=== PATIENT | male | born 1945 | race African-American/Black ===

== ENCOUNTER 2017-03-21 11:00 | Emergency (ER) | payer MEDICARE | END 2017-03-21 12:55 | disposition home or self-care (01) | LOC: ERS 11:00 | DX: H57.12 Ocular pain, left eye (principal); M10.9 Gout, unspecified; E78.5 Hyperlipidemia, unspecified; I10 Essential (primary) hypertension; K21.9 Gastro-esophageal reflux disease without esophagitis; Z87.891 Personal history of nicotine dependence; Z79.899 Other long term (current) drug therapy; Z79.2 Long term (current) use of antibiotics | CPT/HCPCS: 99283 ==

== ENCOUNTER 2017-08-06 10:21 | Inpatient (IN) | payer MEDICARE ==
--- NOTE | 2017-08-06 10:52 | RAD ---
PORTABLE AP CHEST: Date: 08/06/17 HISTORY: Cough, congestion, right flank pain. COMPARISON: 03/11/15. FINDINGS: Cardiac silhouette is magnified by projection. Pulmonary vasculature is within normal limits. The darwin gs are clear. Troy screws overlies the right humeral head. There has been no interval change from t he prior exam. IMPRESSION: Stable chest without evidence of an acute cardiopulmonary process. POS: [facility]
[2017-08-06 11:36] LABS: #Monocytes 0.3 thou/uL (0.11-0.59); #Neutrophils 1.7 thou/uL (1.40-6.50); %Basophils 0.7 % (0.0-1.0); %Eosinophils 0.4 % (0.0-10.0); %Lymphocytes 48.8 % (21.0-51.0); %Monocytes 7.2 % (0.0-10.0); %Neutrophils 42.9 % (42.0-75.0); Hemoglobin 11.6 g/dL (14.0-18.0); Mean Corpuscular HGB CONC 32.1 g/dL (32.0-36.0); Mean Corpuscular Hemoglobin 28.9 pg (27.0-31.0); Mean Corpuscular Volume 90.1 fl (80.0-94.0); Mean Platelet Volume 10.4 fL (7.4-10.4); Platelet Count 146 thou/uL (130-400); RBC Distribution Width 14.8 % (11.5-14.5); Red Blood Cell (RBC) Count 4.01 mill/uL (4.70-6.10)
[2017-08-06 11:55] LABS: ALT (SGPT) 27 U/L (8-55); AST (SGOT) 27 U/L (5-34); Albumin 3.6 g/dL (3.4-4.8); Alkaline Phosphatase 65 U/L (40-150); Anion Gap 13 mmol/L (10-20); BUN (Urea Nitrogen) 57 mg/dL (8.4-25.7); Bilirubin, Total 0.3 mg/dL (0.2-1.2); Calc. Creatinine Clearance 0 mL/min (70-130); Calcium 8.3 mg/dL (7.8-10.44); Carbon Dioxide 25 mmol/L (23-31); Chloride 105 mmol/L (98-107); Estimated GFR-MDRD 14; Globulin 3.3 g/dL (2.4-3.5); Glucose 127 mg/dL (83-110); Potassium 3.8 mmol/L (3.5-5.1); Protein, Total 6.9 g/dL (5.8-8.1); Sodium 139 mmol/L (136-145)
[2017-08-06 14:53] LABS: Bilirubin Negative (Negative); Blood, Urine Moderate (Negative); Clarity CLEAR (Clear); Glucose, Urine (Dipstick) Negative (Negative); Leukocyte Negative (Negative); Nitrite Negative (Negative); Protein, Urine (Dipstick) > or equal to 300 mg/dL (Neg-Trace); Specific Gravity, Urine 1.022 (1.002-1.036); Urobilinogen 0.2 mg/dL (0.2-1.0)
[2017-08-06 14:54] LABS: CKMB 0.9 ng/mL (0-6.6); Troponin I 0.013 ng/mL (< 0.028)
[2017-08-06 14:55] LABS: Bacteria/HPF None Seen HPF (None Seen); Hyaline Casts/LPF 4-6 HYALINE CAST LPF (0-3 Hyaline); Pathc Cast-AUWi Flag 1.08 (0-2.49); Squamous Epithelial 0-3 HPF (0-3); WBC/HPF 0-3 HPF (0-3)
[2017-08-06] MEDS ORDERED: Ondansetron HCl/PF 4 MG/2 ML Vial IVP PRN (15:40)
[2017-08-06] MEDS ORDERED: Acetaminophen 325 MG TAB PO PRN (15:40)
[2017-08-06] MEDS ORDERED: Loperamide HCl 2 MG CAP PO PRN (15:40)
--- NOTE | 2017-08-06 16:43 | HP ---
DATE OF ADMISSION: 08/06/2017 TIME: 03:30 p.m. HISTORY OF PRESENT ILLNESS: This is a 72-year-old black male with a history of paroxysmal atrial fib rillation, hypertension, hyperlipidemia, chronic kidney disease, who presents with a flu-like illness . The patient was doing relatively well until Tuesday, 4 days ago, he began developing congestion and cough. This has become progressively worse. He began developing loose stools. Over the past 2 day s, he has had minimal fluids or solids. He complains of feeling quite weak. [facility] and he was found to be quite dehydrated with a markedly increased creatinine above baseli ne. PAST MEDICAL HISTORY: Chronic kidney disease, stage 4, followed by Dr. Marcano; paroxysmal atrial fibrillation; hyperlipidemia; hypertension; chronic sinusitis; allergies; diverticulosis. PAST SURGICAL HISTORY: Past surgeries include BPH, status post prostate surgery by Dr. Valenzuela; hernia surgery by Dr. Burgess; shoulder surgery; right inguinal hernia robotic surgery; appendectomy; colonos copy by Dr. Vernon in 2015. FAMILY HISTORY: Parents are , does not recall any family history of coronary artery disease, heart disease, diabetes. SOCIAL HISTORY: He is a former smoker; he quit in 05/2016. He used to drink whiskey heavily. 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 He is . He has 4 kids and 12 grandkids. MEDICATIONS: Lipitor 20 daily, amlodipine 5 daily, calcitriol 0.25 daily, atenolol/chlorthalidone 10 0/25 mg daily, Patanol eye drops p.r.n. ALLERGIES: None. REVIEW OF SYSTEMS: As above. PHYSICAL EXAMINATION: VITAL SIGNS: Stable, afebrile. GENERAL: Minimal distress at this time. HEENT: Clear. Mucous membranes moist. NECK: Supple. HEART: Regular rate and rhythm. LUNGS: Clear. ABDOMEN: Soft, nontender. EXTREMITIES: No edema. LABORATORY AND X-RAY FINDINGS: White count 4.0, H and H 11 and 36, platelets 146. Sodium 139, potas sium 3.8, creatinine 5.06, BUN 57, glucose 127, CK 204. Liver function tests normal. Urine specific gravity 1.022 with RBCs. Chest x-ray, no acute disease. ASSESSMENT: 1. Dehydration. 2. Flu syndrome/acute gastroenteritis. 3. Acute kidney injury on chronic kidney disease stage 4. 4. Paroxysmal atrial fibrillation. 5. Hypertension. 6. Hyperlipidemia. 7. Benign prostatic hypertrophy, status post surgery. 8. Tobacco history. PLAN: 1. Admit, on observation. 2. Hydration. 3. CBC and comprehensive in the a.m. 4. Clear liquid diet and advance as tolerated.
[2017-08-06] MEDS ORDERED: FLU VACC TS2017-18 (>65YR) 0.5 ML SYRINGE IM ONE (16:45)
[2017-08-06] MEDS: Sodium Chloride 0.9% 1,000 ML IV SCH (16:49)
[2017-08-06] MEDS: Famotidine/PF 20 mg/2ml Vial SLOW IVP SCH (21:31)
[2017-08-06] MEDS: Atorvastatin Calcium 20 MG TAB PO SCH (21:32)
[2017-08-07] MEDS: Sodium Chloride 0.9% 1,000 ML IV SCH ×2 (03:01→17:54)
[2017-08-07 05:22] LABS: ALT (SGPT) 20 U/L (8-55); AST (SGOT) 21 U/L (5-34); Alkaline Phosphatase 55 U/L (40-150); Anion Gap 11 mmol/L (10-20); BUN (Urea Nitrogen) 48 mg/dL (8.4-25.7); Bilirubin, Total 0.2 mg/dL (0.2-1.2); Calc. Creatinine Clearance 16 mL/min (70-130); Calcium 7.6 mg/dL (7.8-10.44); Carbon Dioxide 20 mmol/L (23-31); Chloride 113 mmol/L (98-107); Estimated GFR-MDRD 17; Globulin 2.9 g/dL (2.4-3.5); Glucose 99 mg/dL (83-110); Potassium 3.6 mmol/L (3.5-5.1); Protein, Total 5.9 g/dL (5.8-8.1); Sodium 140 mmol/L (136-145)
[2017-08-07 05:44] LABS: Band 3 % (5-11); Hemoglobin 10.5 g/dL (14.0-18.0); Lymphocytes 55 % (21-51); MDiff Complete? YES; Mean Corpuscular HGB CONC 32.1 g/dL (32.0-36.0); Mean Corpuscular Volume 90.4 fl (80.0-94.0); Mean Platelet Volume 10.4 fL (7.4-10.4); Metamyelocyte 1 % (0-0); Monocytes 6 % (0-10); Neutrophil 35 % (42-75); PLT Morphology Comment Appears Decreased; Platelet Count 123 thou/uL (130-400); RBC Distribution Width 14.8 % (11.5-14.5); Red Blood Cell (RBC) Count 3.61 mill/uL (4.70-6.10); White Blood Cell (WBC) Count 3.9 thou/uL (4.8-10.8)
[2017-08-07] MEDS ORDERED: Atenolol 50 MG TAB PO SCH (09:00)
[2017-08-07] MEDS: Amlodipine 5 MG TAB PO SCH (09:23)
[2017-08-07] MEDS: Enoxaparin Sodium 40 MG/0.4 ML SYRINGE SC SCH (09:23)
--- NOTE | 2017-08-07 12:43 | PRG ---
DATE OF SERVICE: 08/07/2017 SUBJECTIVE: The patient is feeling much better this morning, complains of low-grade fever last night . No complaints of chest pain or shortness of breath. Bowel is still remains somewhat loose. OBJECTIVE: VITAL SIGNS: Temperature 99.5, pulse 62, respirations 16, blood pressure 151/81. HEART: Regular rate and rhythm. LUNGS: Clear. ABDOMEN: Soft. EXTREMITIES: With no edema. LABORATORY DATA: White count 3.9, hemoglobin and hematocrit 10 and 32. Sodium 140; potassium 3.6; c reatinine 5.06, down to 4.11. ASSESSMENT: 1. Dehydration. 2. Flu syndrome, type B. 3. Acute kidney injury on chronic kidney disease, stage 4. 4. Paroxysmal atrial fibrillation. 5. Hypertension. 6. Hyperlipidemia. 7. Benign prostatic hypertrophy. 8. Tobacco history. PLAN: 1. Continue hydration. 2. Recheck CBC and CMP in the morning with possible discharge. We would like for the kidney functio ns still at least returned to baseline.
[2017-08-07] MEDS: Atorvastatin Calcium 20 MG TAB PO SCH (20:21)
[2017-08-07] MEDS: Famotidine/PF 20 mg/2ml Vial SLOW IVP SCH (20:21)
[2017-08-08] MEDS: Sodium Chloride 0.9% 1,000 ML IV SCH ×2 (05:34→17:37)
--- NOTE | 2017-08-08 08:10 | PRG ---
DATE OF SERVICE: 08/08/2017 SUBJECTIVE: This is a 72-year-old admitted with a flu and dehydration. He is doing well. He is amber erating a regular diet. He still has a cough. OBJECTIVE: VITAL SIGNS: Temperature 99.3, pulse 56, respirations 20, blood pressure 175/77. HEART: Regular rate and rhythm. LUNGS: Clear. ABDOMEN: Soft. LABORATORY DATA: BMP pending. ASSESSMENT: 1. Dehydration. 2. Flu syndrome type B. 3. Acute kidney injury on chronic kidney disease stage 4. 4. Paroxysmal atrial fibrillation. 5. Hypertension. 6. Hyperlipidemia. 7. Benign prostatic hyperplasia. 8. Tobacco history. PLAN: 1. Check BMP. If creatinine is back to baseline, plan to discharge home today. 2. Follow up in the office in one week.
[2017-08-08] MEDS ORDERED: Atenolol 50 MG TAB PO SCH (09:00)
[2017-08-08 09:20] LABS: Anion Gap 11 mmol/L (10-20); BUN (Urea Nitrogen) 43 mg/dL (8.4-25.7); Calc. Creatinine Clearance 17 mL/min (70-130); Calcium 7.8 mg/dL (7.8-10.44); Carbon Dioxide 19 mmol/L (23-31); Chloride 114 mmol/L (98-107); Estimated GFR-MDRD 19; Glucose 83 mg/dL (83-110); Potassium 3.8 mmol/L (3.5-5.1); Sodium 140 mmol/L (136-145)
[2017-08-08] MEDS: Enoxaparin Sodium 40 MG/0.4 ML SYRINGE SC SCH (10:15)
[2017-08-08] MEDS: Amlodipine 5 MG TAB PO SCH (10:15)
[2017-08-08 13:19] VITALS: BMI 23.6
[2017-08-08] MEDS: Atorvastatin Calcium 20 MG TAB PO SCH (20:25)
[2017-08-08] MEDS: hydrALAZINE 25 MG TAB PO PRN (20:25)
[2017-08-08] MEDS ORDERED: Famotidine 20 MG TAB PO SCH (21:00)
[2017-08-09 05:38] LABS: Anion Gap 12 mmol/L (10-20); BUN (Urea Nitrogen) 41 mg/dL (8.4-25.7); Calc. Creatinine Clearance 17 mL/min (70-130); Calcium 7.4 mg/dL (7.8-10.44); Carbon Dioxide 18 mmol/L (23-31); Chloride 115 mmol/L (98-107); Estimated GFR-MDRD 20; Glucose 94 mg/dL (83-110); Potassium 4.1 mmol/L (3.5-5.1); Sodium 141 mmol/L (136-145)
[2017-08-09] MEDS: Sodium Chloride 0.9% 1,000 ML IV SCH (05:46)
[2017-08-09] MEDS: Amlodipine 5 MG TAB PO SCH (09:01)
[2017-08-09] MEDS: Enoxaparin Sodium 40 MG/0.4 ML SYRINGE SC SCH (09:01)
--- NOTE | 2017-08-09 10:17 | DIS ---
DATE OF ADMISSION: 08/06/2017 DATE OF DISCHARGE: 08/09/2017 DISCHARGE DIAGNOSES: 1. Dehydration. 2. Flu syndrome type B. 3. Acute kidney injury on chronic kidney disease stage 4. 4. Paroxysmal atrial fibrillation. 5. Hypertension. 6. Hyperlipidemia. 7. Benign prostatic hypertrophy. 8. Tobacco history. DISCHARGE MEDICATIONS: Amlodipine 5 p.o. at bedtime, Lipitor 20 p.o. at bedtime, atenolol, chlorthal idone 50-25 p.o. q.a.m., brimonidine drops, calcitriol 0.25 mg daily, Xalatan eyedrops, bicarbonate t ab 650 p.o. b.i.d. FOLLOWUP: Follow up with Dr. Yinka Jones in 3 days. Follow up with Dr. Marcano. BRIEF HISTORY: This is a 72-year-old black male with history of paroxysmal atrial fibrillation, hype rtension, hyperlipidemia, chronic kidney disease who presented with a flu-like illness. He was evalu ated in the ER, was noted to be quite dehydrated with an elevated creatinine. The patient developed congestion and cough 4 days prior and became progressively worse. For the 48 hours prior to admissio n, he had minimal intake, was unable to hold down solids or liquids. HOSPITAL COURSE: The patient was hydrated slowly over his hospital stay. His creatinine decreased o n a daily basis. His creatinine upon admission was 5.06. His previous one on 07/04/2017 was 3.4. H is creatinine eventually dropped to 4 to 3.8 to finally 3.7. The patient will be discharged at this time. He is hydrated. Have to be careful with fluid overload. He will follow with Dr. Marcano t his week. He will continue all home medications. Final sodium 141, potassium 4.1, creatinine 3.73, BUN 41. White count 3.9, H&H 10 and 32. Urine gabriela wed 11-20 RBCs with greater than 300 protein.
[2017-08-09] MEDS ORDERED: Furosemide 40 MG/4 ML VIAL SLOW IVP SCH (11:30)
[2017-08-09] MEDS: hydrALAZINE 25 MG TAB PO PRN (13:24)
[2017-08-09 20:03] VITALS: BP 177/83; TEMP 96.2
== END 2017-08-09 15:50 | disposition home or self-care (01) | DRG 194 ==
LOC: ERS 10:21 → ERHOLD 13:47 → 2NO 15:51
PROVIDERS: ADMIT Family Medicine; ATTEND Family Medicine
DX: J10.1 Influenza due to other identified influenza virus with other respiratory manifestations (principal); N18.4 Chronic kidney disease, stage 4 (severe); I48.0 Paroxysmal atrial fibrillation; N17.9 Acute kidney failure, unspecified; E86.0 Dehydration; I10 Essential (primary) hypertension; E78.5 Hyperlipidemia, unspecified; J32.9 Chronic sinusitis, unspecified; I12.9 Hypertensive chronic kidney disease with stage 1 through stage 4 chronic kidney disease, or unspecified chronic kidney disease; K57.90 Diverticulosis of intestine, part unspecified, without perforation or abscess without bleeding; Z87.891 Personal history of nicotine dependence; K21.9 Gastro-esophageal reflux disease without esophagitis; M10.9 Gout, unspecified; Z90.79 Acquired absence of other genital organ(s)
CPT/HCPCS: 36415; 71045; 80048; 80053; 81003; 81015; 82550; 82553; 84484; 85025; 87633; 93005; 96360; 96361; A4216; J1650; J1940; S0028

== ENCOUNTER 2017-11-05 08:25 | Observation (INO) | payer MEDICARE ==
[2017-11-05 08:51] LABS: #Basophils 0.1 thou/uL (0.0-0.2); #Eosinphils 0.2 thou/uL (0.0-0.7); #Lymphocytes 3.4 thou/uL (1.20-3.40); #Monocytes 0.4 thou/uL (0.11-0.59); #Neutrophils 3.1 thou/uL (1.40-6.50); %Basophils 1.3 % (0.0-1.0); %Eosinophils 2.3 % (0.0-10.0); %Lymphocytes 47.7 % (21.0-51.0); %Monocytes 5.6 % (0.0-10.0); %Neutrophils 43.1 % (42.0-75.0); Hemoglobin 9.6 g/dL (14.0-18.0); Mean Corpuscular HGB CONC 32.9 g/dL (32.0-36.0); Mean Corpuscular Hemoglobin 28.9 pg (27.0-31.0); Mean Corpuscular Volume 87.9 fl (80.0-94.0); Mean Platelet Volume 8.1 fL (7.4-10.4); Platelet Count 234 thou/uL (130-400); RBC Distribution Width 15.4 % (11.5-14.5); Red Blood Cell (RBC) Count 3.31 mill/uL (4.70-6.10); White Blood Cell (WBC) Count 7.2 thou/uL (4.8-10.8)
[2017-11-05 09:16] LABS: ALT (SGPT) 27 U/L (8-55); AST (SGOT) 19 U/L (5-34); Albumin 3.5 g/dL (3.4-4.8); Alkaline Phosphatase 83 U/L (40-150); Anion Gap 13 mmol/L (10-20); BUN (Urea Nitrogen) 58 mg/dL (8.4-25.7); Bilirubin, Total 0.3 mg/dL (0.2-1.2); CK (CPK) 274 U/L (30-200); CKMB 2.3 ng/mL (0-6.6); Calc. Creatinine Clearance 0 mL/min (70-130); Calcium 8.3 mg/dL (7.8-10.44); Carbon Dioxide 20 mmol/L (23-31); Chloride 112 mmol/L (98-107); Estimated GFR-MDRD 11; Globulin 3.2 g/dL (2.4-3.5); Glucose 88 mg/dL (83-110); Lipase 34 U/L (8-78); Potassium 4.6 mmol/L (3.5-5.1); Protein, Total 6.7 g/dL (5.8-8.1); Sodium 139 mmol/L (136-145); Troponin I Less than 0.010 ng/mL (< 0.028)
[2017-11-05] MEDS ORDERED: Nitroglycerin 2% Ointment 1 INCH/1 GM Packet ONE (09:28)
--- NOTE | 2017-11-05 10:06 | RAD ---
PORTABLE AP CHEST XRAY: DATE: 11/05/17. HISTORY: Chest pain. COMPARISON: 08/06/17. FINDINGS: The cardiac silhouette is magnified by projection and is stable in size. Pulmonary vasculature is wi thin normal limits. The lungs remain clear. There has been no interval change compared to the prior exam. IMPRESSION: No acute cardiopulmonary process. POS: [facility]
[2017-11-05] MEDS ORDERED: Ondansetron ODT 4 MG TAB SL PRN (11:38)
[2017-11-05] MEDS ORDERED: Ondansetron HCl/PF 4 MG/2 ML Vial IVP PRN (11:38)
[2017-11-05 12:34] LABS: Troponin I Less than 0.010 ng/mL (< 0.028)
[2017-11-05] MEDS ORDERED: hydrALAZINE 20 MG/ML VIAL SLOW IVP PRN (13:00)
[2017-11-05] MEDS ORDERED: Amlodipine 10 MG TAB PO SCH (13:00)
[2017-11-05] MEDS ORDERED: Magnesium 2 GM/NS 0.9% 100 ML 2 GM in Premix Bag 1 BAG IVPB SCH (13:15)
[2017-11-05 13:18] VITALS: BMI 24.1
[2017-11-05] MEDS ORDERED: Prevnar 13-Val Conj/PF 0.5 ML SYRINGE IM ONE (13:30)
[2017-11-05] MEDS ORDERED: Nitroglycerin 2% Ointment 1 INCH/1 GM Packet TOP SCH (15:00)
[2017-11-05 16:27] LABS: Troponin I Less than 0.010 ng/mL (< 0.028)
[2017-11-05] MEDS: Calcium Acetate 667 MG CAP PO SCH (16:47)
[2017-11-05] MEDS ORDERED: cloNIDine 0.1mg/24 Hour PATCH TD SCH (17:00)
[2017-11-05] MEDS ORDERED: traZODone HCl 50 MG TAB PO PRN (17:05)
[2017-11-05] MEDS: Sodium Bicarbonate Tab 325 MG TAB PO SCH (20:28)
[2017-11-05] MEDS ORDERED: Latanoprost 0.005% Ophth Soln 2.5 ml Bottle EA EYE SCH (21:00)
[2017-11-05] MEDS ORDERED: Mirtazapine 15 MG Soltab PO SCH (21:00)
[2017-11-05] MEDS: Timolol 0.5% Ophth Soln 5 ml Bottle EA EYE SCH (21:26)
[2017-11-05] MEDS: Brimonidine Tartrate 0.2% Ophth Soln 5 ml Bottle EA EYE SCH (21:27)
--- NOTE | 2017-11-06 03:13 | HP ---
DATE OF ADMISSION: 11/05/2017 PRIMARY CARE PHYSICIAN: Dr. Yinka Jones. HISTORY OF PRESENT ILLNESS: The patient has had a left sternal border chest pain radiating to back and left shoulder. This coincided with blood pressures with systolics in the emergency department into the 200s. He is not routinely checking his blood pressure on an outpatient basis. He is compliant with his 5 mg of amlodipine. He has follow up with his senior research associate, Dr. Montero, Tuesday. He reports a negative stress test in the last year or normal rather. He is followed by Dr. Marcano in Nephrology, and has a followup ultrasound and post -image clinic visit in the next 1-2 weeks reportedly. Patient's renal function has remained stable, chronic kidney disease 4 for the last 4 months. He has been on the decline over the last 2 years. Patient states with a decrease in blood pressure and nitro paste, his chest pain is resolved. No shortness of breath. MORE FORMAL REVIEW OF SYSTEMS: No fevers or chills, no cough, no congestion, no runny nose or changes in vision. Positive chest pain, no palpitations. No abdomen pain, no changes in stools. Positive insomnia. Positive joint pain. Negative headache. REVIEW OF PAST MEDICAL, FAMILY, SOCIAL, SURGICAL HISTORY: CKD, stage 4; paroxysmal atrial fibrillation; hypertension; hyperlipidemia; diverticulosis; seasonal allergies. Renal artery stenosis prior TURP; hernia surgery; repair of right inguinal appendectomy; up-to-date on colonoscopy; prior tobacco user, quit 2016; history of whisky intake, mixed reports of the patient that he is clean and sober. Alcohol level in the ER is negative. HOME MEDICATIONS: Include Lipitor 20 mg, amlodipine 5 mg, calciferol 0.25 mg, atenolol. Chlorthalidone was discontinued with his decline in renal function and Patanol eye drops. PHYSICAL EXAMINATION: Vital signs on arrival to floor, temperature of 98.0, pulse of 63, respiratory rate 12, oxygen saturation 99% on room air, blood pressure 169/79. LABORATORY WORK: White blood cell count 7.2, hemoglobin of 9.6, platelet count of 234. Troponins x3 less than 0.01, lipase of 34, magnesium 1.5. Sodium of 139, potassium of 4.6, chloride of 112, CO2 of 20, creatinine of 5.96, GFR of 11 estimated, glucose of 88. Chest x-ray without acute cardiopulmonary events. ASSESSMENT AND PLAN: 1. Chest pain, rule out acute myocardial infarction. 2. Paroxysmal atrial fibrillation. 3. Chronic kidney disease, stage 4. 4. Hypertensive urgency. Increase patient's amlodipine to 10 mg, started clonidine patch with nitro paste. We will titrate medications as needed. Once patient's systolics have been decreased below 165 consistently, we will discharge patient with anticipation of followup with Dr. Montero on Tuesday and followup renal ultrasound with Dr. Marcano in the next 1-2 weeks. ROBYD
[2017-11-06 04:04] VITALS: TEMP 98
[2017-11-06 05:55] LABS: #Eosinphils 0.1 thou/uL (0.0-0.7); #Lymphocytes 2.2 thou/uL (1.20-3.40); #Monocytes 0.4 thou/uL (0.11-0.59); #Neutrophils 3.3 thou/uL (1.40-6.50); %Basophils 0.3 % (0.0-1.0); %Eosinophils 1.4 % (0.0-10.0); %Lymphocytes 36.6 % (21.0-51.0); %Monocytes 6.1 % (0.0-10.0); %Neutrophils 55.5 % (42.0-75.0); Hemoglobin 9.1 g/dL (14.0-18.0); Mean Corpuscular HGB CONC 32.5 g/dL (32.0-36.0); Mean Corpuscular Volume 89.2 fl (80.0-94.0); Mean Platelet Volume 8.9 fL (7.4-10.4); Platelet Count 227 thou/uL (130-400); RBC Distribution Width 15.5 % (11.5-14.5); Red Blood Cell (RBC) Count 3.16 mill/uL (4.70-6.10)
[2017-11-06 06:46] LABS: ALT (SGPT) 24 U/L (8-55); AST (SGOT) 18 U/L (5-34); Albumin 3.2 g/dL (3.4-4.8); Alkaline Phosphatase 73 U/L (40-150); Anion Gap 14 mmol/L (10-20); BUN (Urea Nitrogen) 56 mg/dL (8.4-25.7); Bilirubin, Total 0.3 mg/dL (0.2-1.2); Calc. Creatinine Clearance 11 mL/min (70-130); Calcium 8.5 mg/dL (7.8-10.44); Carbon Dioxide 19 mmol/L (23-31); Chloride 113 mmol/L (98-107); Estimated GFR-MDRD 12; Globulin 2.9 g/dL (2.4-3.5); Glucose 82 mg/dL (83-110); Protein, Total 6.1 g/dL (5.8-8.1); Sodium 141 mmol/L (136-145)
[2017-11-06 08:01] VITALS: BP 152/76
[2017-11-06] MEDS: Sodium Bicarbonate Tab 325 MG TAB PO SCH (08:25)
[2017-11-06] MEDS: Calcium Acetate 667 MG CAP PO SCH (08:25)
[2017-11-06] MEDS: Brimonidine Tartrate 0.2% Ophth Soln 5 ml Bottle EA EYE SCH (08:26)
[2017-11-06] MEDS: Timolol 0.5% Ophth Soln 5 ml Bottle EA EYE SCH (08:34)
[2017-11-06] MEDS ORDERED: Amlodipine 10 MG TAB PO SCH (09:00)
[2017-11-06] MEDS ORDERED: Aspirin 81 mg Enteric Coated Tablet PO SCH (09:00)
[2017-11-06] MEDS ORDERED: Enoxaparin Sodium 30 MG/0.3 ML SYRINGE SC SCH (09:00)
[2017-11-06] MEDS ORDERED: Calcitriol 0.25 MCG CAP PO SCH (09:00)
--- NOTE | 2017-11-06 11:27 | DIS ---
DATE OF ADMISSION: 11/05/2017 DATE OF DISCHARGE: 11/06/2017 PRIMARY CARE PHYSICIAN: Dr. Yinka Jones. CHIEF COMPLAINT: Chest pain, radiation from front to back. PRESENTING HISTORY OF PRESENT ILLNESS: Patient found to have systolics in the 190s to 200s. The pat lina's systolics were brought down with nitro paste and his chest pain improved with nitro paste. Tr oponins x3 were titrated overnight. No EKG changes were found. EKG showed patient in sinus arrhythm ia, but no ST changes. He has a history of paroxysmal atrial fibrillation, but no runs of atrial fib rillation found on telemetry overnight. The patient with a history of renal artery stenosis with [facility] onic kidney disease, stage 4, followed by Dr. Marcano. He is followed from a cardiac standpoint b y Dr. Montero and has an appointment with Dr. Montero tomorrow on Tuesday and has a repeat renal artery ultrasound with Dr. Marcano pending next week. The patient did well with improved blood pressure and resolution of chest pain following clonidine patch administration. All of his diuretics were rem sabi secondary to his renal function decline and the patient remains with some element of bradycardia , which is why he is no longer on a beta esteban. No consultations were performed. Follow up with Kevin Montero on Tuesday with Dr. Marcano in next 2 weeks. Follow up with Dr. Yinka Jones in next we k. MEDICATIONS ON DISCHARGE: Include amlodipine 10 mg daily; 81 mg aspirin; timolol eye drops; cholecal ciferol; PhosLo; clonidine patch 0.1 mg, new prescription; sodium bicarbonate 650 mg. DISCHARGE DIET: Renal/cardiac. DISCHARGE ACTIVITY: As tolerated. DISCHARGE CONDITION: Good.
[2017-11-12] MEDS ORDERED: cloNIDine 0.1mg/24 Hour PATCH TD SCH (09:00)
--- NOTE | 2017-11-12 15:06 | EKG ---
Test Reason : Blood Pressure : / mmHG Vent. Rate : 066 BPM Atrial Rate : 066 BPM P-R Int : 196 ms QRS Dur : 090 ms QT Int : 378 ms P-R-T Axes : 052 -09 049 degrees QTc Int : 396 ms Sinus rhythm with Premature atrial complexes Otherwise normal ECG Confirmed by JANETT GANT, RAMOS ([id number]), scientific editor ALIS CABALLERO ([id number]) on 11/12/2017 3:06:12 PM Referred By: Confirmed By:RAMOS ROWLAND MD
== END 2017-11-06 09:40 | disposition home or self-care (01) ==
LOC: ERS 08:25 → 2SW 11:09
PROVIDERS: ADMIT Family Medicine; ATTEND Family Medicine
DX: R07.9 Chest pain, unspecified (principal); N18.4 Chronic kidney disease, stage 4 (severe); I48.0 Paroxysmal atrial fibrillation; E78.5 Hyperlipidemia, unspecified; I10 Essential (primary) hypertension; K57.30 Diverticulosis of large intestine without perforation or abscess without bleeding; Z90.49 Acquired absence of other specified parts of digestive tract; Z79.82 Long term (current) use of aspirin; Z79.899 Other long term (current) drug therapy; Z98.890 Other specified postprocedural states
CPT/HCPCS: 71045; 80053 ×2; 80307; 82550; 82553; 83690; 83735; 83880; 84484 ×2; 85025 ×2; 90670; 93005; 96365; 96366; 99285; G0009; G0378; 36415; 90471; J3475

== ENCOUNTER 2017-12-02 11:30 | Outpatient (CLI) | payer MEDICARE | END 2017-12-02 11:31 | disposition home or self-care (01) | LOC: BICULT 11:30 | PROVIDERS: ATTEND Internal Medicine Nephrology | DX: N18.5 Chronic kidney disease, stage 5 (principal); R93.429 Abnormal radiologic findings on diagnostic imaging of unspecified kidney | CPT/HCPCS: 76770; G0365; 93970 ==

== ENCOUNTER 2018-09-29 09:12 | Day surgery (SDC) | payer MEDICARE ==
[2018-09-29 09:44] VITALS: BMI 23.6
[2018-09-29] MEDS ORDERED: diphenhydrAMINE 25 MG CAP PO SCH (09:45)
[2018-09-29] MEDS ORDERED: Acetaminophen 500 MG TAB PO SCH (09:45)
[2018-09-29 18:29] LABS: #Basophils 0.1 thou/uL (0.0-0.2); #Eosinphils 0.2 thou/uL (0.0-0.7); #Lymphocytes 3.3 thou/uL (1.20-3.40); #Monocytes 0.4 thou/uL (0.11-0.59); %Basophils 1.5 % (0.0-1.0); %Eosinophils 2.1 % (0.0-10.0); %Lymphocytes 41.6 % (21.0-51.0); %Neutrophils 49.8 % (42.0-75.0); Hemoglobin 8.6 g/dL (14.0-18.0); Mean Corpuscular HGB CONC 31.1 g/dL (32.0-36.0); Mean Corpuscular Hemoglobin 28.1 pg (27.0-31.0); Mean Corpuscular Volume 90.5 fL (78.0-98.0); Mean Platelet Volume 8.1 fL (7.4-10.4); Platelet Count 229 thou/uL (130-400); RBC Distribution Width 16.5 % (11.5-14.5); Red Blood Cell (RBC) Count 3.06 mill/uL (4.70-6.10)
[2018-09-29 18:41] VITALS: BP 174/83; TEMP 97.5
== END 2018-09-29 19:12 | disposition home or self-care (01) ==
LOC: ONC/OP 09:12 → ONC 09:13 → ONC/OP 19:12
PROVIDERS: ATTEND Internal Medicine Hematology & Oncology
PROC: 30233H1 Transfusion of Nonautologous Whole Blood into Peripheral Vein, Percutaneous Approach (ICD-10-PCS; principal; 2018-09-29)
DX: D64.9 Anemia, unspecified (principal); D69.6 Thrombocytopenia, unspecified; Z79.899 Other long term (current) drug therapy; Z79.82 Long term (current) use of aspirin
CPT/HCPCS: 36415; 36430; 85025; 86850; 86900; 86901; P9016; Q0163

== ENCOUNTER 2018-10-03 08:59 | Outpatient (CLI) | payer MEDICARE ==
--- NOTE | 2018-10-03 10:40 | CT ---
CT Pulmonary Lung Scan History: [Personal history of nicotine dependence] Comparison: Radiograph 2018 Findings: Lung screening specific: No suspicious pulmonary nodules. Lung RADS category S: No incidental findings of the chest requiring urgent evaluation. Pulmonary incidentals: There is mild centrilobular emphysema in the lung apices. No pneumothorax. No effusion. 2 to 3 mm micronodule right middle lobe axial image 145. Calcified granuloma left lower lob e. Other incidentals: There is diffuse hepatic skeletal hyperostosis of the thoracic spine. Limited eval uation of the upper abdomen demonstrates multiple calcified apple hepatis lymph nodes. No acute displ aced rib fracture. Impression: 1. Lung RADS category 2: Benign appearance or behavior. Recommend screening CT in one year. 2. Lung RADS category S: Negative. No new or suspicious incidental findings requiring additional eval uation. 3. Evidence of prior granulomatous disease.
== END 2018-10-03 09:00 | disposition home or self-care (01) ==
LOC: CT 08:59
PROVIDERS: ATTEND Internal Medicine Hematology & Oncology
DX: F17.211 Nicotine dependence, cigarettes, in remission (principal)
CPT/HCPCS: G0297

== ENCOUNTER 2018-10-25 23:35 | Emergency (ER) | payer MEDICARE ==
[2018-10-26 00:04] LABS: Bilirubin Negative (Negative); Blood, Urine Large (Negative); Clarity CLEAR (Clear); Glucose, Urine (Dipstick) Negative (Negative); Leukocyte Negative (Negative); Nitrite Negative (Negative); Protein, Urine (Dipstick) 300 mg/dL (Neg-Trace); Specific Gravity, Urine 1.008 (1.002-1.036); Urobilinogen 0.2 mg/dL (0.2-1.0); pH, Urine 5.5 (5.0-9.0)
[2018-10-26 00:05] LABS: Bacteria/HPF None Seen HPF (None Seen); Hyaline Casts/LPF 0-3 HYALINE CAST LPF (0-3 Hyaline); Pathc Cast-AUWi Flag 0.54 (0-2.49); RBC/HPF GREATER THAN 50-TNTC HPF (0-3); Squamous Epithelial None Seen HPF (0-3)
[2018-10-26 00:32] LABS: #Eosinphils 0.2 thou/uL (0.0-0.7); #Lymphocytes 2.7 thou/uL (1.20-3.40); #Monocytes 0.5 thou/uL (0.11-0.59); #Neutrophils 3.8 thou/uL (1.40-6.50); %Basophils 0.6 % (0.0-1.0); %Eosinophils 2.2 % (0.0-10.0); %Lymphocytes 37.3 % (21.0-51.0); %Monocytes 7.4 % (0.0-10.0); %Neutrophils 52.5 % (42.0-75.0); Hemoglobin 8.7 g/dL (14.0-18.0); Mean Corpuscular HGB CONC 31.9 g/dL (32.0-36.0); Mean Corpuscular Hemoglobin 28.5 pg (27.0-31.0); Mean Corpuscular Volume 89.1 fL (78.0-98.0); Mean Platelet Volume 8.7 fL (7.4-10.4); Platelet Count 233 thou/uL (130-400); RBC Distribution Width 18.3 % (11.5-14.5); Red Blood Cell (RBC) Count 3.06 mill/uL (4.70-6.10); White Blood Cell (WBC) Count 7.2 thou/uL (4.8-10.8)
[2018-10-26 00:56] LABS: ALT (SGPT) 11 U/L (8-55); AST (SGOT) 8 U/L (5-34); Albumin 3.7 g/dL (3.4-4.8); Alkaline Phosphatase 80 U/L (40-150); Anion Gap 18 mmol/L (10-20); BUN (Urea Nitrogen) 83 mg/dL (8.4-25.7); Bilirubin, Total 0.4 mg/dL (0.2-1.2); Calc. Creatinine Clearance 0 mL/min (70-130); Calcium 7.9 mg/dL (7.8-10.44); Carbon Dioxide 14 mmol/L (23-31); Chloride 112 mmol/L (98-107); Estimated GFR-MDRD 6; Globulin 3.2 g/dL (2.4-3.5); Glucose 76 mg/dL (83-110); Lipase 37 U/L (8-78); Potassium 4.6 mmol/L (3.5-5.1); Protein, Total 6.9 g/dL (5.8-8.1); Sodium 139 mmol/L (136-145)
== END 2018-10-26 01:17 | disposition home or self-care (01) ==
LOC: ERS 23:35
DX: I12.0 Hypertensive chronic kidney disease with stage 5 chronic kidney disease or end stage renal disease (principal); N18.9 Chronic kidney disease, unspecified; K21.9 Gastro-esophageal reflux disease without esophagitis; E78.5 Hyperlipidemia, unspecified; M10.9 Gout, unspecified; Z87.891 Personal history of nicotine dependence
CPT/HCPCS: 36415; 80053; 81003; 81015; 83690; 85025; 99283

== ENCOUNTER 2018-10-30 07:52 | Outpatient (CLI) | payer MEDICARE ==
--- NOTE | 2018-10-30 08:54 | ULT ---
Exam: Vein mapping for dialysis access HISTORY: Chronic kidney disease TECHNIQUE: Multiplanar grayscale and color Doppler images were obtained in a bilateral upper extremit y venous ultrasound. Spectral analysis of the Doppler waveforms of the vessels were performed. FINDINGS: The bilateral internal jugular veins and subclavian veins are patent without evidence of th rombus. Right brachial artery 4.7 mm Right radial artery 2.3 mm Right ulnar artery 1.3 mm Left brachial artery 3.4 and 3.8 mm. The left brachial artery is duplicated. Left radial artery 2.0 mm Left ulnar artery 1.1 mm RIGHT CEPHALIC VEIN in millimeters 0.5 -- Shoulder 0.9 -- Upper arm 0.5 -- Mid upper arm 0.7-- Just proximal to the elbow 0.9 -- Just distal to the elbow 0.7 -- Forearm 0.7 -- Wrist RIGHT BASILIC VEIN in millimeters 1.8 -- Shoulder 1.1 -- Upper arm 2.4 -- Mid upper arm 2.2 -- Just proximal to the elbow 0.8 -- Just distal to the elbow 0.9 -- Forearm 0.5 -- Wrist LEFT CEPHALIC VEIN in millimeters 1.6 -- Shoulder 1.0 -- Upper arm 1.5 -- Mid upper arm 2.1 -- Just proximal to the elbow 0.6 -- Just distal to the elbow 1.0 -- Forearm 0.9 -- Wrist LEFT BASILIC VEIN in millimeters 4.5 -- Shoulder 1.9 -- Upper arm 1.3 -- Mid upper arm 1.7 -- Just proximal to the elbow 0.4 -- Just distal to the elbow 0.3 -- Forearm 0.5 -- Wrist IMPRESSION: Vein mapping for dialysis access as above
== END 2018-10-30 07:53 | disposition home or self-care (01) ==
LOC: ULT 07:52
PROVIDERS: ATTEND Internal Medicine Nephrology
DX: Z01.818 Encounter for other preprocedural examination (principal); N18.5 Chronic kidney disease, stage 5
CPT/HCPCS: 93970; G0365

== ENCOUNTER 2018-11-16 20:55 | Emergency (ER) | payer MEDICARE ==
[2018-11-16] MEDS ORDERED: HYDROcodone/Acetaminophen 10/325 mg Tablet ONE (22:03)
== END 2018-11-16 23:12 | disposition home or self-care (01) ==
LOC: ERS 20:55
DX: G89.18 Other acute postprocedural pain (principal); I12.0 Hypertensive chronic kidney disease with stage 5 chronic kidney disease or end stage renal disease; N18.6 End stage renal disease; K21.9 Gastro-esophageal reflux disease without esophagitis; E78.5 Hyperlipidemia, unspecified; M10.9 Gout, unspecified; Z87.891 Personal history of nicotine dependence
CPT/HCPCS: 99283

== ENCOUNTER 2018-12-12 09:59 | Inpatient (IN) | payer MEDICARE ==
[2018-12-12 11:20] LABS: Hemoglobin 8.3 g/dL (14.0-18.0); Mean Corpuscular HGB CONC 30.4 g/dL (32.0-36.0); Mean Corpuscular Hemoglobin 28.1 pg (27.0-31.0); Mean Corpuscular Volume 92.4 fL (78.0-98.0); Mean Platelet Volume 7.9 fL (7.4-10.4); Platelet Count 271 thou/uL (130-400); Red Blood Cell (RBC) Count 2.96 mill/uL (4.70-6.10); White Blood Cell (WBC) Count 5.3 thou/uL (4.8-10.8)
[2018-12-12 11:21] LABS: #Eosinphils 0.3 thou/uL (0.0-0.7); #Lymphocytes 1.5 thou/uL (1.20-3.40); #Monocytes 0.3 thou/uL (0.11-0.59); #Neutrophils 3.2 thou/uL (1.40-6.50); %Basophils 0.4 % (0.0-1.0); %Lymphocytes 27.5 % (21.0-51.0); %Monocytes 6.2 % (0.0-10.0); %Neutrophils 60.9 % (42.0-75.0)
[2018-12-12 11:42] LABS: ALT (SGPT) 18 U/L (8-55); AST (SGOT) 10 U/L (5-34); Albumin 3.2 g/dL (3.4-4.8); Alkaline Phosphatase 62 U/L (40-150); Anion Gap 11 mmol/L (10-20); BUN (Urea Nitrogen) 87 mg/dL (8.4-25.7); Bilirubin, Total 0.3 mg/dL (0.2-1.2); CK (CPK) 85 U/L (30-200); Calc. Creatinine Clearance 0 mL/min (70-130); Calcium 8.7 mg/dL (7.8-10.44); Carbon Dioxide 21 mmol/L (23-31); Chloride 111 mmol/L (98-107); Estimated GFR-MDRD 5; Globulin 3.2 g/dL (2.4-3.5); Glucose 101 mg/dL (83-110); Lipase 58 U/L (8-78); Protein, Total 6.4 g/dL (5.8-8.1); Sodium 138 mmol/L (136-145)
--- NOTE | 2018-12-12 11:45 | RAD ---
XR Chest 1 View Portable HISTORY: Dyspnea COMPARISON: 11/05/2017 FINDINGS: The heart size is normal. The lungs are well expanded without focal areas of consolidation, pneumothorax or pleural effusions. There are degenerative changes in the spine and shoulder joints. A small calcified granuloma seen in the left lower lung. IMPRESSION: No radiographic evidence of acute cardiopulmonary process.
[2018-12-12 11:50] LABS: Hypochromia SLIGHT = 6-15 cells (100X) (0-5/hpf); MDiff Complete? YES; Polychromasia SLIGHT = 2-3 cells (100X) (0-2/hpf)
[2018-12-12] MEDS ORDERED: Ondansetron ODT 4 MG TAB SL PRN (14:54)
[2018-12-12] MEDS ORDERED: Ondansetron PF 4 MG/2 ML Vial IVP PRN (14:54)
[2018-12-12] MEDS ORDERED: Tuberculin PPD 0.1 ML VIAL I-DERMAL SCH ×2 (15:30→17:00)
[2018-12-12] MEDS ORDERED: EPOETIN ALFA-EPBX (ESRD) 4,000 UNIT/ML VIAL SC SCH (15:30)
[2018-12-12] MEDS ORDERED: cloNIDine 0.1 MG TAB PO SCH (16:15)
[2018-12-12 16:16] LABS: HBSAB Concentration 1.69 mIU/mL; HBSAg Index 0.33 S/CO (0-0.99); Hep B Core Total Ab Non-Reactive (NonReactive); Hep B Core Total Index 0.05 S/CO (0-0.79); Hep B Surf AB Non-Reactive (NonReactive); Hep B Surf Ag Non-Reactive S/CO (NonReactive); Hep C IgG Ab Non-Reactive (NonReactive); Hep C Index 0.13 S/CO (0-0.79)
[2018-12-12] MEDS: Calcium Acetate 667 MG CAP PO SCH (18:08)
[2018-12-12] MEDS: Ferrous Sulfate 325 MG TAB PO SCH (18:08)
--- NOTE | 2018-12-12 21:05 | CON ---
DATE OF CONSULTATION: HISTORY OF PRESENT ILLNESS: Mr. Olivera is a 73-year-old black male, was admitted due to uremic signs and symptoms. The patient has history of chronic renal failure from his hypertensive nephropathy. Several weeks ago, an AV fistula was placed by Dr. Mir. He has declined to initiate dialysis. I also declined to have a cuffed hemodialysis catheter placed and would like to wait for his AV fistula to mature. Due to the progressive azotemia and worsening renal function, the patient was admitted for initiation of dialysis. We were able to use his left AV fistula. However, there was an infiltrate which currently is being treated symptomatically. He has adequate blood flow at the present time. REVIEW OF SYSTEMS: Positive for nausea, but no vomiting, decreased appetite, decreased energy level. No headache. No diplopia. No productive cough. No fever or chills. No hematochezia. No melena. No hematemesis. No abdominal pain. No syncopal episode. No fever or chills. HOME MEDICATIONS: Included; 1. Calcitriol 0.25 mcg daily. 2. Amlodipine 5 mg twice a day. 3. Atorvastatin 40 mg tablet at bedtime. 4. Tums 500 mg one tablet t.i.d. with meals. 5. Combigan eye drops as directed. 6. Latanoprost ophthalmic eye drops as directed. PAST MEDICAL HISTORY: 1. Chronic renal failure from hypertensive nephropathy. 2. Prostate cancer-in remission. 3. Longstanding hypertension. 4. Hyperlipidemia. 5. DJD. 6. Status post paroxysmal atrial fibrillation. 7. Peripheral vascular disease. PAST SURGICAL HISTORY: Status post AV fistula placement, status post prostate biopsy, status post prostatectomy, status post laparoscopic hernia repair, status post rotator cuff surgery, status post laparoscopic appendectomy. SOCIAL HISTORY: The patient is . He has a live-in girlfriend. He lives in [place]. Four children. Used to smoke 1/2 pack per day for 20 years. Alcohol, none. 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 Education, 12th grade. FAMILY HISTORY: Positive family history of ESRD, one cousin on dialysis. ALLERGIES: NONE. TRAUMA: None. IMMUNIZATION: Up-to-date. HOSPITALIZATIONS: Please see past medical history. PHYSICAL EXAMINATION: VITAL SIGNS: Blood pressure is noted at 129/62, heart rate 56, respiratory rate 16, temperature 98.1, and O2 saturation 100% on room air. GENERAL: Noted to be awake, alert, comfortable, not in overt distress. SKIN: Adequate turgor. HEENT: Pinkish, slightly pale conjunctivae. Anicteric sclerae. No neck mass. No carotid bruits. No JVD. CHEST: No deformities. LUNGS: Clear breath sounds. No wheezing. No crackles. HEART: Normal sinus rhythm. No murmur, no gallops, no rubs. ABDOMEN: Globular, soft, nontender. No masses. EXTREMITIES: No edema. No deformities. LABORATORY DATA: Laboratories of December 12, 2018, white count 5.2, hemoglobin 8.2, hematocrit 27.4. Sodium 138, potassium 5, chloride 111, carbon dioxide 21, BUN 87, creatinine 11.49. AST 10, ALT 18, albumin 3.2. Chest x-ray, no CHF, no infiltrates. ASSESSMENT AND PLAN: 1. End-stage renal disease, chronic renal failure from hypertensive nephropathy, hemodialysis may be initiated. The plan is to do a 2-hour hemodialysis today. Due to an infiltration of the AV fistula, I will not do dialysis tomorrow. We will hold off dialysis until 2 days from today. Fluid removal only as tolerated by the patient. The patient has declined to have a cuffed dialysis catheter placed. 2. Anemia. Start Epogen and iron supplementation. 3. Secondary hyperparathyroidism. Continue calcitriol. 4. Hyperphosphatemia. The patient has been started on a phosphate binder, PhosLo 667 mg 2 tablets t.i.d. with meals. 5. Consult Case Management for outpatient dialysis. Job ID: [id number]
[2018-12-12] MEDS: cloNIDine 0.1 MG TAB PO SCH (21:17)
--- NOTE | 2018-12-13 02:37 | HP ---
PRIMARY CARE PHYSICIAN: Dr. Yinka Jones. CHIEF COMPLAINT: Weakness. HISTORY OF PRESENT ILLNESS: This is a 73-year-old gentleman with a history of end-stage kidney disease, followed by Dr. Hernandes, hypertension, hyperlipidemia, history of paroxysmal atrial fibrillation, who was sent to the hospital for admission by Dr. Hernandes for increasing uremia on his labs. The patient states that he has had some increased fatigue, but denies confusion. Denies chest pain or shortness of breath. He was admitted, underwent dialysis today, and states that he is feeling some better after his dialysis. The patient had AV fistula placed by Dr. Mir on December 10, but did not want to start dialysis at that time, but due to his worsening labs, Dr. Hernandes felt like it was time to initiate dialysis. He is doing well at this point. Denies nausea or vomiting. He states that his appetite is good, now being admitted for further evaluation and continued initiation of dialysis until his outpatient dialysis is arranged. PAST MEDICAL HISTORY: Chronic renal failure from hypertensive nephropathy, remote history of prostate cancer, was following by Dr. Valenzuela in the past, hypertension, hyperlipidemia, history of paroxysmal atrial fibrillation, remote history of alcohol abuse, peripheral vascular disease, degenerative joint disease, anemia of chronic disease. MEDICATIONS: Include: 1. Calcitriol 0.25 mcg daily. 2. Amlodipine 10 mg daily. 3. Atorvastatin 40 mg at bedtime. 4. Tums 500 mg t.i.d. 5. Combigan eye drops. 6. Latanoprost eye drops. ALLERGIES: NO KNOWN DRUG ALLERGIES. PAST SURGICAL HISTORY: History of prostatectomy by Dr. Valenzuela, history of right inguinal hernia repair by Dr. Burgess, history of shoulder surgery, colonoscopy last in 2015, laparoscopic appendectomy in 2014, resection of bladder tumor by Dr. Freedman in October of 2018, left AV fistula placement in October of 2018. FAMILY HISTORY: Positive for renal disease with one cousin on dialysis. Father and mother, both at this point. REVIEW OF SYSTEMS: As per the history of present illness. CONSTITUTIONAL: He denies any recent fevers, chills, or recent illness. HEENT: Denies headache, visual or hearing changes. CARDIAC: Denies chest pain, shortness of breath, or palpitations. PULMONARY: Denies cough or hemoptysis. GI: Denies nausea, vomiting, abdominal pain, or diarrhea. : Denies dysuria or hematuria. NEUROLOGIC: Some weakness. No seizures or syncope. MUSCULOSKELETAL: History of degenerative joint disease with occasional joint pains. PHYSICAL EXAMINATION: VITAL SIGNS: Temperature 97.5, pulse of 56, respirations 18, blood pressure 154/79, and pulse ox is 98% on room air. GENERAL: He is awake and alert. No acute distress. Speech is clear. NECK: Supple. HEART: Regular rate and rhythm. LUNGS: Clear bilaterally. ABDOMEN: Soft, nontender, and nondistended. No hepatosplenomegaly. EXTREMITIES: No clubbing, cyanosis, or edema. Dressing on left forearm. No edema bilaterally. LABORATORY DATA: Hepatitis panel was nonreactive. White blood cell count 5,300, hemoglobin and hematocrit 8.3 and 27.4, with normocytic indices, platelets of 271. Sodium 138, potassium 5.0, chloride 111, CO2 of 21, BUN and creatinine 87 and 11.49, with a GFR of 5, albumin of 3.2. AST and ALT are normal. Chest x-ray showed no active disease. ASSESSMENT AND PLAN: 1. This is a 73-year-old gentleman with a long history of renal disease, now with end-stage renal disease with worsening uremia. The patient has tolerated initiation of hemodialysis. We will continue plan per Nephrology. 2. Chronic anemia, anemia of chronic disease, and anemia of end-stage renal disease. We will continue iron supplementation. Dr. Hernandes to start Epogen. 3. Secondary hyperparathyroidism. Continue calcitriol. 4. Hypertension, appears to be stable on his current medications. Dr. Hernandes started clonidine p.r.n. Job ID: [id number]
[2018-12-13 04:41] LABS: #Basophils 0.1 thou/uL (0.0-0.2); #Eosinphils 0.3 thou/uL (0.0-0.7); #Lymphocytes 1.9 thou/uL (1.20-3.40); #Monocytes 0.3 thou/uL (0.11-0.59); #Neutrophils 2.4 thou/uL (1.40-6.50); %Basophils 1.4 % (0.0-1.0); %Eosinophils 6.2 % (0.0-10.0); %Lymphocytes 38.5 % (21.0-51.0); %Monocytes 6.8 % (0.0-10.0); %Neutrophils 47.1 % (42.0-75.0); Hemoglobin 8.7 g/dL (14.0-18.0); Mean Corpuscular HGB CONC 31.3 g/dL (32.0-36.0); Mean Corpuscular Hemoglobin 28.4 pg (27.0-31.0); Mean Corpuscular Volume 90.7 fL (78.0-98.0); Mean Platelet Volume 8.4 fL (7.4-10.4); Platelet Count 262 thou/uL (130-400); RBC Distribution Width 18.9 % (11.5-14.5); Red Blood Cell (RBC) Count 3.06 mill/uL (4.70-6.10)
[2018-12-13 04:57] LABS: Anion Gap 14 mmol/L (10-20); BUN (Urea Nitrogen) 58 mg/dL (8.4-25.7); Calc. Creatinine Clearance 7 mL/min (70-130); Calcium 8.5 mg/dL (7.8-10.44); Carbon Dioxide 26 mmol/L (23-31); Chloride 104 mmol/L (98-107); Estimated GFR-MDRD 8; Glucose 79 mg/dL (83-110); Potassium 4.8 mmol/L (3.5-5.1); Sodium 139 mmol/L (136-145)
[2018-12-13] MEDS ORDERED: Losartan 25 MG TAB PO SCH (09:00)
--- NOTE | 2018-12-13 09:43 | PRG ---
DATE OF SERVICE: 12/13/2018 SERVICE: Renal Medicine. SUBJECTIVE: Mr. Olivera is a 73-year-old black male with known history of chronic renal failure, was initially on dialysis due to uremia. A 2-hour hemodialysis was done. There was some infiltration on the left upper extremity AV fistula. We are resting the arm at the present time. I examined the AV fistula and there was a good bruit. No other complaints. No chest pain or shortness of breath. The patient also denies any nausea or vomiting. OBJECTIVE: VITAL SIGNS: Blood pressure 121/69, heart rate 63, respiratory rate 18, temperature 98.1, and pulse ox 98%. GENERAL: Awake, alert, comfortable, not in overt distress. SKIN: Adequate turgor. HEENT: He has slightly pale conjunctivae. Anicteric sclerae. NECK: No neck mass. No carotid bruits. No JVD. CHEST: No deformities. LUNGS: Clear breath sounds. No wheezing. No crackles. HEART: Normal sinus rhythm. No murmurs. No gallops. No rubs. ABDOMEN: Globular, soft, and nontender. No masses. EXTREMITIES: No edema. No deformities. Positive for left upper extremity AV fistula. Positive for bruit. MEDICATIONS: Medications of December 13, 2018, reviewed. LABORATORY DATA: Laboratories of December 13, 2018: Sodium 139, potassium 4.8, chloride 104, carbon dioxide 26, BUN 58, creatinine 8.47, glucose 79, and calcium 8.5. ASSESSMENT AND PLAN: 1. End-stage renal disease/chronic renal failure, stable, tolerated a 2-hour hemodialysis yesterday. My plan to schedule him tomorrow for 3-hour hemodialysis with fluid removal only as tolerated. 2. Anemia. Epogen and ferrous sulfate have been initiated. 3. Secondary hyperparathyroidism/hyperphosphatemia, started on PhosLo and calcitriol. 4. Awaiting outpatient dialysis placement. 5. Hypertension. The patient has been started on new blood pressure medications. Job ID: [id number]
[2018-12-13] MEDS: Timolol 0.5% Ophth Soln 5 ml Bottle EA EYE SCH ×2 (09:54→21:00)
[2018-12-13] MEDS: Brimonidine Tartrate 0.2% Ophth Soln 5 ml Bottle EA EYE SCH ×2 (09:55→21:00)
[2018-12-13] MEDS: Ferrous Sulfate 325 MG TAB PO SCH ×2 (09:57→17:37)
[2018-12-13] MEDS: cloNIDine 0.1 MG TAB PO SCH ×2 (09:58→21:00)
[2018-12-13] MEDS: Sodium Bicarbonate Tab 325 MG TAB PO SCH ×2 (09:58→21:00)
[2018-12-13] MEDS: Calcitriol 0.25 MCG CAP PO SCH ×2 (09:58→10:00)
[2018-12-13] MEDS: Amlodipine 10 MG TAB PO SCH (09:59)
[2018-12-13] MEDS: Calcium Acetate 667 MG CAP PO SCH ×3 (09:59→17:36)
--- NOTE | 2018-12-13 10:31 | PRG ---
DATE OF SERVICE: 12/13/2018 SUBJECTIVE: The patient is feeling well this morning. No complaints of nausea, vomiting, or fatigue. He is feeling much better than admission. OBJECTIVE: VITAL SIGNS: Temperature 98.1, pulse is 60, respirations 18, pulse ox 98%, and blood pressure 121/69. HEART: Regular rate and rhythm. LUNGS: Clear. ABDOMEN: Soft. EXTREMITIES: No edema. LABORATORY DATA: White count 5.0, hemoglobin and hematocrit of 8.7 and 27.8, platelets of 262. Sodium 139, potassium 4.8, CO2 of 26, creatinine is down from 11 to 8.47, BUN from 87 to 58. Hepatitis C and hepatitis B negative. ASSESSMENT: 1. 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 2. Chronic anemia, anemia of chronic disease, and anemia of end-stage renal disease. 3. Secondary hyperparathyroidism. 4. Hypertension. 5. Hyperlipidemia. 6. History of paroxysmal atrial fibrillation. PLAN: 1. Yesterday, the patient received his first 2-hour course of hemodialysis. He will receive his next dialysis tomorrow. 2. We will continue to monitor blood pressure. 3. The patient requesting Ambien for sleep if okay with Dr. Hernandes. 4. More than likely the patient may be in the hospital up to 1 week. His uremia has improved. 5. We will continue to follow along with Dr. Hernandes. Job ID: [id number]
[2018-12-13] MEDS: Latanoprost 0.005% Ophth Soln 2.5 ml Bottle EA EYE SCH (21:00)
[2018-12-13] MEDS: Atorvastatin Calcium 20 MG TAB PO SCH (21:00)
--- NOTE | 2018-12-14 09:23 | PRG ---
DATE OF SERVICE: 12/14/2018 SUBJECTIVE: Mr. Olivera is a 73-year-old black male with chronic renal failure/ESRD. No new complaints today. He had some mild itchiness around the PPD site. No complaints of chest pain or shortness of breath. We have scheduled him for 3-hour hemodialysis yesterday. On admission, he received 2-hour dialysis, which he tolerated. OBJECTIVE: VITAL SIGNS: Blood pressure 123/63, heart rate 50, respiratory rate 16, temperature 97.8. GENERAL: Awake, alert, comfortable, not in distress. SKIN: Adequate turgor. HEENT: Slightly pale conjunctivae. Anicteric sclerae. No neck mass. No carotid bruits. No JVD. CHEST: No deformities. LUNGS: Clear breath sounds. No wheezing. No crackles. HEART: Normal sinus rhythm. No murmurs, gallops, or rubs. ABDOMEN: Globular, soft, nontender. No masses. EXTREMITIES: No edema. No deformities. MEDICATIONS: Medications of December 14, 2018, were reviewed. LABORATORY DATA: Laboratories of December 13, 2018; white count 5, hemoglobin 8.7. Sodium 139, potassium 4.8, chloride 104, carbon dioxide 26, BUN 58, creatinine 8.47, glucose 89, and calcium 8.5. ASSESSMENT AND PLAN: 1. End-stage renal disease, stable. Continuing current hemodialysis regimen. Fluid removal only as tolerated. 2. Hypertension, much improved with adjustment of the blood pressure. My concern is that the patient has been having some episodes of lower blood pressure. For that reason, we will discontinue his losartan. He will continue to take his clonidine as well as amlodipine. 3. Anemia, continuing weekly Epogen and daily ferrous sulfate. Job ID: [id number]
[2018-12-14] MEDS: Brimonidine Tartrate 0.2% Ophth Soln 5 ml Bottle EA EYE SCH ×2 (09:27→21:23)
[2018-12-14] MEDS: Timolol 0.5% Ophth Soln 5 ml Bottle EA EYE SCH ×2 (09:27→21:24)
[2018-12-14] MEDS: Calcitriol 0.25 MCG CAP PO SCH ×2 (09:38→14:25)
[2018-12-14] MEDS: Calcium Acetate 667 MG CAP PO SCH ×3 (09:44→17:26)
[2018-12-14] MEDS: Ferrous Sulfate 325 MG TAB PO SCH ×2 (13:07→17:26)
[2018-12-14] MEDS: Amlodipine 10 MG TAB PO SCH (14:25)
[2018-12-14] MEDS: Sodium Bicarbonate Tab 325 MG TAB PO SCH ×2 (14:26→21:23)
[2018-12-14] MEDS: cloNIDine 0.1 MG TAB PO SCH ×2 (14:26→21:23)
[2018-12-14] MEDS ORDERED: Zolpidem Tartrate 5 MG TAB PO PRN (16:10)
[2018-12-14 16:56] LABS: Anion Gap 14 mmol/L (10-20); BUN (Urea Nitrogen) 71 mg/dL (8.4-25.7); Calc. Creatinine Clearance 6 mL/min (70-130); Calcium 8.3 mg/dL (7.8-10.44); Carbon Dioxide 24 mmol/L (23-31); Chloride 105 mmol/L (98-107); Estimated GFR-MDRD 7; Glucose 80 mg/dL (83-110); Potassium 4.8 mmol/L (3.5-5.1); Sodium 138 mmol/L (136-145)
[2018-12-14 17:51] LABS: Hemoglobin 8.4 g/dL (14.0-18.0); Mean Corpuscular Volume 90.9 fL (78.0-98.0); Red Blood Cell (RBC) Count 3.03 mill/uL (4.70-6.10); White Blood Cell (WBC) Count 5.7 thou/uL (4.8-10.8)
[2018-12-14 17:52] LABS: #Lymphocytes 2.2 thou/uL (1.20-3.40); #Neutrophils 2.8 thou/uL (1.40-6.50); %Basophils 0.6 % (0.0-1.0); %Eosinophils 5.5 % (0.0-10.0); %Lymphocytes 37.7 % (21.0-51.0); %Monocytes 7.4 % (0.0-10.0); %Neutrophils 48.8 % (42.0-75.0); Mean Corpuscular HGB CONC 30.4 g/dL (32.0-36.0); Mean Corpuscular Hemoglobin 27.6 pg (27.0-31.0); Mean Platelet Volume 8.8 fL (7.4-10.4); Platelet Count 222 thou/uL (130-400); RBC Distribution Width 18.7 % (11.5-14.5)
[2018-12-14 17:53] LABS: #Eosinphils 0.3 thou/uL (0.0-0.7); #Monocytes 0.4 thou/uL (0.11-0.59)
[2018-12-14] MEDS: READ PPD TEST SITE PO SCH (20:47)
[2018-12-14] MEDS: Atorvastatin Calcium 20 MG TAB PO SCH (21:22)
[2018-12-14] MEDS: Latanoprost 0.005% Ophth Soln 2.5 ml Bottle EA EYE SCH (21:23)
[2018-12-15] MEDS: Amlodipine 10 MG TAB PO SCH (08:11)
[2018-12-15] MEDS: Sodium Bicarbonate Tab 325 MG TAB PO SCH ×2 (08:11→20:49)
[2018-12-15] MEDS: Calcium Acetate 667 MG CAP PO SCH ×3 (08:11→16:59)
[2018-12-15] MEDS: Calcitriol 0.25 MCG CAP PO SCH ×2 (08:12→08:14)
[2018-12-15] MEDS: cloNIDine 0.1 MG TAB PO SCH ×2 (08:12→20:49)
[2018-12-15] MEDS: Ferrous Sulfate 325 MG TAB PO SCH ×2 (08:12→16:59)
[2018-12-15] MEDS: Timolol 0.5% Ophth Soln 5 ml Bottle EA EYE SCH ×2 (08:13→20:50)
[2018-12-15] MEDS: Brimonidine Tartrate 0.2% Ophth Soln 5 ml Bottle EA EYE SCH ×2 (08:13→20:48)
--- NOTE | 2018-12-15 08:36 | PRG ---
DATE OF SERVICE: 12/15/2018 SUBJECTIVE: The patient is doing well. No complaints. He is receiving hemodialysis. He does complain of painful IV site of his left forearm. OBJECTIVE: VITAL SIGNS: Temperature 98.7, pulse 64, respirations 18, and blood pressure 147/70. HEART: Regular rate and rhythm. LUNGS: Clear. ABDOMEN: Soft. ASSESSMENT: 1. 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 2. Anemia of chronic disease. 3. Secondary hyperparathyroidism. 4. Hypertension. 5. Hyperlipidemia. 6. History of paroxysmal atrial fibrillation. PLAN: 1. Continue with hemodialysis. 2. Discharge home soon. 3. In the process of setting outpatient dialysis. Job ID: [id number]
[2018-12-15] MEDS ORDERED: Lidocaine 4% Cream 5 GM TUBE w/ Tegaderm TOP SCH (10:00)
--- NOTE | 2018-12-15 10:06 | PRG ---
DATE OF SERVICE: 12/15/2018 SUBJECTIVE: Mr. Olivera is a 73-year-old black male with chronic renal failure/ESRD, underwent 3-hour hemodialysis yesterday. Today, he is hesitant to initiate dialysis due to pain in the AV fistula. I offered him to have a dialysis catheter placed. He will think about it; however, requested not to do the dialysis today. No complaints of chest pain or shortness of breath. OBJECTIVE: VITAL SIGNS: Blood pressure 147/70, heart rate 64, respiratory rate 18, temperature 98.7, and pulse ox 96%. GENERAL: Awake, alert, and comfortable, not in distress. SKIN: Adequate turgor. HEENT: Pale conjunctivae. Anicteric sclerae. NECK: No neck mass. No carotid bruits. No JVD. CHEST: No deformities. LUNGS: Clear breath sounds. No wheezing. No crackles. HEART: Normal sinus rhythm. No murmur. No gallops. No rubs. ABDOMEN: Globular, soft, and nontender. No masses. EXTREMITIES: No edema. No deformities. MEDICATIONS: Medications of December 15, 2018, reviewed. LABORATORY DATA: Laboratories of December 14, 2018, hemoglobin 8.4. Sodium 138, potassium 4.8, chloride 105, carbon dioxide 24, BUN 71, creatinine 9.55, and calcium 8.3. ASSESSMENT AND PLAN: 1. End-stage renal disease/chronic renal failure. Declined hemodialysis today. He would like to think about it. He was thinking of having dialysis catheter placed. He will tell me his decision tomorrow. For the moment, we will hold dialysis. 2. Anemia, on weekly Epogen. 3. Hypertension, much improved. Continue current BP medications. 4. Recheck CBC and basic metabolic in a.m. Job ID: [id number]
[2018-12-15] MEDS: READ PPD TEST SITE PO SCH (17:01)
--- NOTE | 2018-12-15 19:15 | RAD ---
TWO VIEWS CHEST: 12/15/18 PROVIDED CLINICAL HISTORY: Positive PPD. FINDINGS: Comparison 12/12/18. Cardiac and mediastinal silhouette is within normal limits. The lungs appear clear. No pleural fluid or pneumothorax apparent. IMPRESSION: No evidence for an acute cardiopulmonary process. No radiographic evidence for pulmonary post primary tuberculosis. POS: ARON
[2018-12-15] MEDS: Atorvastatin Calcium 20 MG TAB PO SCH (20:48)
[2018-12-15] MEDS: Latanoprost 0.005% Ophth Soln 2.5 ml Bottle EA EYE SCH (20:49)
[2018-12-16 06:18] LABS: #Basophils 0.1 thou/uL (0.0-0.2); #Eosinphils 0.4 thou/uL (0.0-0.7); #Lymphocytes 2.5 thou/uL (1.20-3.40); #Monocytes 0.4 thou/uL (0.11-0.59); #Neutrophils 1.9 thou/uL (1.40-6.50); %Basophils 1.2 % (0.0-1.0); %Eosinophils 7.6 % (0.0-10.0); %Lymphocytes 47.5 % (21.0-51.0); %Monocytes 7.5 % (0.0-10.0); %Neutrophils 36.2 % (42.0-75.0); Hemoglobin 8.5 g/dL (14.0-18.0); Mean Corpuscular HGB CONC 30.3 g/dL (32.0-36.0); Mean Corpuscular Hemoglobin 27.6 pg (27.0-31.0); Mean Corpuscular Volume 91.3 fL (78.0-98.0); Mean Platelet Volume 9.2 fL (7.4-10.4); Platelet Count 187 thou/uL (130-400); RBC Distribution Width 18.4 % (11.5-14.5); Red Blood Cell (RBC) Count 3.09 mill/uL (4.70-6.10); White Blood Cell (WBC) Count 5.2 thou/uL (4.8-10.8)
[2018-12-16] MEDS: Sodium Bicarbonate Tab 325 MG TAB PO SCH ×2 (08:40→21:01)
[2018-12-16] MEDS: Amlodipine 10 MG TAB PO SCH (08:40)
[2018-12-16] MEDS: cloNIDine 0.1 MG TAB PO SCH ×2 (08:40→20:52)
[2018-12-16] MEDS: Calcium Acetate 667 MG CAP PO SCH ×3 (08:41→16:55)
[2018-12-16] MEDS: Brimonidine Tartrate 0.2% Ophth Soln 5 ml Bottle EA EYE SCH ×2 (08:41→20:52)
[2018-12-16] MEDS: Calcitriol 0.25 MCG CAP PO SCH ×2 (08:41→08:42)
[2018-12-16] MEDS: Ferrous Sulfate 325 MG TAB PO SCH ×2 (08:41→16:55)
[2018-12-16] MEDS: Timolol 0.5% Ophth Soln 5 ml Bottle EA EYE SCH ×2 (08:42→20:55)
--- NOTE | 2018-12-16 11:07 | PRG ---
DATE OF SERVICE: 12/16/2018 SUBJECTIVE: Mr. Olivera is a 73-year-old black male, who was admitted for uremia. He was initiated on dialysis. However, during the next subsequent dialysis session via his AV fistula, it was not fully matured and it was causing him pain. He declined to use it again. For that reason, he will be consulting Surgery for placement of a cuffed dialysis catheter. This morning, he voices no complaints. No chest pain or shortness of breath. Please note, with the dialysis, he is clinically a little better. My plan is to initiate again dialysis once we have the dialysis catheter in. OBJECTIVE: VITAL SIGNS: Blood pressure 162/78, heart rate 68, respiratory rate 18, temperature 97.7, and pulse ox 99%. GENERAL: Noted to be awake, alert, comfortable, not in distress. SKIN: Adequate turgor. HEENT: He has a slightly pale conjunctivae. Anicteric sclerae. NECK: No neck mass. No carotid bruits. No JVD. CHEST: No deformities. LUNGS: Clear breath sounds. HEART: Normal sinus rhythm. No murmur. No gallops. No rubs. ABDOMEN: Globular, soft, and nontender. No masses. EXTREMITIES: No edema. No deformities. Positive for left AV fistula. Positive for bruit. MEDICATIONS: Medications of December 16, 2018, reviewed. LABORATORY DATA: Laboratories of December 16, 2018, white count 5.2 and hemoglobin 8.5. December 14, 2018; potassium 4.8, BUN 71, creatinine 9.55, glucose 80, and calcium 8.3. ASSESSMENT AND PLAN: 1. End-stage renal disease/chronic renal failure. Resume hemodialysis once we have a tunneled dialysis catheter is in. No indication for an emergent hemodialysis today. Surgical consult has been done for placement of a tunneled dialysis catheter. 2. Anemia. Continuing weekly Epogen with the patient. 3. Secondary hyperparathyroidism, on calcitriol. 4. Hyperphosphatemia. Continue Phoslo. 5. Hypertension. Continue current BP medications. 6. Recheck basic metabolic and CBC in a.m. Job ID: [id number]
--- NOTE | 2018-12-16 12:10 | PRG ---
DATE OF SERVICE: 12/16/2018 SUBJECTIVE: Mr. Olivera is still unsure of his decision about starting dialysis. He told Dr. Hernandes yesterday that he wanted to think about it and he will give Dr. Hernandes his result today. Essentially, his exams are relatively benign. OBJECTIVE: HEART: S1 and S2. No rubs, murmurs, or gallops. LUNGS: Some mild bibasilar rales, otherwise clear. ABDOMEN: Soft, nontender, and nondistended. VITAL SIGNS: Stable with a systolic 160s and diastolic 70s, pulse in the 60s, afebrile. LABORATORY DATA: Hemoglobin is stable at 8.5, RDW is elevated at 18.4, and platelet count is 187, and that is from today. Chemistries have not been repeated since 2 days ago. ASSESSMENT AND PLAN: Awaiting decision on dialysis with end-stage renal disease with hypertension and associated anemia. Job ID: [id number]
[2018-12-16] MEDS ORDERED: CEFAZOLIN 2 GM in Premix Bag 1 BAG IVPB SCH (13:00)
--- NOTE | 2018-12-16 13:20 | CON ---
DATE OF CONSULTATION: HISTORY OF PRESENT ILLNESS: Hubert Olivera is a 73-year-old male patient, black male, whom Dr. Mir placed a left Shira fistula on 12/10/2018. The patient at that time refused hemodialysis catheter. He underwent medical treatment for hyperkalemia. The patient has had attempts at accessing his fistula and has resulted in infiltration and pain and he has not allowed them to access that. He is admitted to the hospital on this occasion and I have been asked to see him regarding placement of hemodialysis catheter to which he is now in agreement. He has an IV in his right wrist. He has left arm fistula with good thrill and bruit with soft tissue infiltration changes. The vein/fistula is well distended. ALLERGIES: NONE. MEDICATIONS: At home; 1. Sodium bicarbonate eye drops. 2. Calcitriol. 3. Atorvastatin. 4. Aspirin. 5. Amlodipine 10 mg daily. PAST SURGICAL HISTORY: Left arm fistula by Dr. Mir on 12/10/2018; on 10/23/2014, robotic right inguinal hernia mesh repair by Dr. Burgess; and on 03/19/2015, Dr. Mir performed laparoscopic video appendectomy. The patient is followed by Dr. Terrance Hernandes nephrology and Dr. Jones, primary care physician. Past surgical history; noted above, he has had a prostatectomy, shoulder surgery, colonoscopy in 2016, TURBT in October [address] Freedman. PAST MEDICAL HISTORY: Remote history of alcohol abuse, none currently; arthritis; anemia of chronic disease; hypertension; history of prostate cancer; and end-stage renal disease, on dialysis. ASSESSMENT AND PLAN: Immature fistula in left arm with infiltration and pain. We will plan placement of cuffed-tunneled hemodialysis catheter. He understands risks and benefits, procedure and consents. Hopefully, this will need to be in place only a short while. He can follow up with Dr. Mir after placement in the future for hopefully removal in the next 1 to 3 months. Job ID: [id number]
[2018-12-16] MEDS ORDERED: PROPOFOL 200 MG/20 ML VIAL ONE (13:49)
[2018-12-16] MEDS ORDERED: Bupivacaine HCl 0.5%/Epinephrine 1:200,000/PF 30 ml Vial ONE (15:11)
[2018-12-16] MEDS ORDERED: Sodium Chloride 0.9% 10 ML ONE (15:11)
[2018-12-16] MEDS ORDERED: Lidocaine 2% PF 5 ML VIAL ONE (15:11)
[2018-12-16] MEDS ORDERED: Heparin 10,000 UNITS/1 ML VIAL ONE (15:11)
[2018-12-16] MEDS ORDERED: Ketamine 50 MG/ML (10ML VIAL) ONE (15:18)
[2018-12-16] MEDS ORDERED: Propofol 500 MG/50 ML VIAL ONE (15:18)
[2018-12-16] MEDS ORDERED: Fentanyl 100 MCG/2 ML VIAL ONE (15:18)
[2018-12-16] MEDS ORDERED: Midazolam HCl 2 mg/2 ml Vial ONE (15:18)
[2018-12-16] MEDS ORDERED: HYDROmorphone 2 MG/ML VIAL SLOW IVP PRN (16:22)
[2018-12-16] MEDS ORDERED: PACU-Morphine 4MG/ML VIAL SLOW IVP PRN (16:22)
[2018-12-16] MEDS ORDERED: Promethazine HCl 25 MG/ML VIAL SLOW IVP PRN (16:22)
[2018-12-16] MEDS ORDERED: Promethazine HCl 25 MG/ML VIAL IM PRN (16:22)
[2018-12-16] MEDS ORDERED: Ondansetron HCl/PF 4 MG/2 ML Vial IVP PRN (16:22)
--- NOTE | 2018-12-16 16:30 | RAD ---
XR Chest 1 View Portable History: Central line placement Comparison: Radiograph prior day Findings: Right IJ dialysis catheter tip sits at the cavoatrial junction. No pneumothorax. Heart size mildly enlarged. No acute osseous abnormality. Impression: Uncomplicated placement of a dialysis catheter.
--- NOTE | 2018-12-16 16:36 | OP ---
DATE OF PROCEDURE: 12/16/2018 PREOPERATIVE DIAGNOSES: End-stage renal disease, dysfunctional left arm, Shira fistula, in need of dialysis access, resting the left fistula, which is infiltrated. POSTOPERATIVE DIAGNOSES: End-stage renal disease, dysfunctional left arm, Shira fistula, in need of dialysis access, resting the left fistula, which is infiltrated. PROCEDURES PERFORMED: Right IJ cuffed tunneled hemodialysis catheter, ultrasound fluoroscopy used. ANESTHESIA: Intravenous sedation, local anesthesia 0.5% Marcaine with epinephrine 30 mL mixed to 2% Xylocaine 10 mL. DESCRIPTION OF PROCEDURE: The patient was taken to the operating room, under intravenous sedation, in supine position, neck and chest prepared with ChloraPrep and draped in routine fashion. Local anesthetic was infiltrated in the skin and subcutaneous tissue about the operative site. Ultrasound guidance was used to cannulate the right internal jugular vein, threading the J-wire, removing the trocar catheter, enlarging skin site sharply at the J-wire entry site, and a stab incision was made over the right chest at the planned exit site and hemodialysis catheter pre-curved Ang[employer] tunneled between the 2 incisions, placing the fabric cuff beneath the skin exit site and securing it with 3-0 nylon suture. Biopatch sterile dressing applied. Small and medium-sized dilators placed over the J-wire and the internal jugular vein removed. Dilator and Peel-Away sheath placed with J-wire in superior vena cava. Dilator and J-wire were removed. Catheter was placed with the Peel-Away sheath. Peel-Away sheath was removed. Fluoroscopic images revealed good catheter placement. Platysma was approximated with 4-0 Monocryl and skin with subdermal 4-0 Monocryl and [place] glue applied. Sterile dressings applied. Each port aspirated and blood flushed with saline solution and heparinized saline solution 1000 units heparin per mL indicating volume of the port. The patient tolerated procedure well. Job ID: [id number]
--- NOTE | 2018-12-16 16:41 | EKG ---
Test Reason : Blood Pressure : / mmHG Vent. Rate : 072 BPM Atrial Rate : 072 BPM P-R Int : 206 ms QRS Dur : 082 ms QT Int : 396 ms P-R-T Axes : 052 -11 049 degrees QTc Int : 433 ms Sinus rhythm with marked sinus arrhythmia Otherwise normal ECG Confirmed by JANETT GANT, RAMOS ([id number]), publications editor ALIS CABALLERO ([id number]) on 12/16/2018 4:41:24 PM Referred By: Confirmed By:RAMOS ROWLAND MD
[2018-12-16] MEDS: Atorvastatin Calcium 20 MG TAB PO SCH (20:52)
[2018-12-16] MEDS: Latanoprost 0.005% Ophth Soln 2.5 ml Bottle EA EYE SCH ×2 (20:56→21:02)
[2018-12-16] MEDS ORDERED: HYDROcodone/Acetaminophen 5/325 mg Tablet PO SCH (21:00)
--- NOTE | 2018-12-17 00:03 | CON ---
DATE OF CONSULTATION: 12/16/2018 REASON FOR CONSULTATION: Positive PPD. HISTORY OF PRESENT ILLNESS: A 73-year-old with history of hypertensive nephropathy with end-stage renal disease and history of prostate cancer in remission as well as atrial fibrillation and alcoholism, who has progressed to end-stage renal disease and now started dialytic therapy. As part of the workup for dialysis, he had a PPD which is positive. I measured that about 20 mm of induration in the right forearm. Mild headaches. No sore throat, odynophagia, or dysphagia. No cough. No chest pain. Sometimes, he has sweats at night, some weight loss. No abdominal pain or diarrhea. No genitourinary symptoms. He still has urinary output, but not much. No neurological symptoms. MEDICAL HISTORY: Hypertensive nephropathy, prostate cancer in remission, hyperlipidemia, atrial fibrillation, alcoholism, and peripheral vascular disease. ALLERGIES: NONE. PAST SURGICAL HISTORY: Prostatectomy, inguinal hernia repair, shoulder surgery, colonoscopy, appendectomy, bladder tumor resection, AV fistula placement. FAMILY HISTORY: Kidney disease. MEDICATION LIST: Currently on; 1. Norvasc. 2. Lipitor. 3. Alphagan. 4. Rocaltrol. 5. PhosLo. 6. Cefazolin. 7. Clonidine. 8. Fentanyl. 9. Latanoprost. 10. Morphine. 11. Zofran. PHYSICAL EXAMINATION: VITAL SIGNS: Temperature has been normal, blood pressure 105/61, pulse 48, respirations 18, O2 saturation 94%. GENERAL: Appears no distress, just had a tunneled catheter placed in the right IJ position, and a Shira fistula in left forearm. Has positive PPD in the right forearm. No Sarmiento catheter. No lymphadenopathy. HEENT: Ocular movements conjugate. Oral cavity still with a few teeth in place with quite a bit of decay and gum disease. NECK: Supple. No jugular venous distention or carotid bruits. LUNGS: Symmetric. Clear breath sounds. HEART: S1 and S2, regular rate. ABDOMEN: Soft, not distended or tender. No ascites. No bladder distention. MUSCULOSKELETAL: No joint inflammatory activity. NEURO: Nonfocal including cognitive function. LABORATORY DATA: White cell count 5.2, hemoglobin 8.5, MCV 91, platelets 187, normal differential. Chemistry with a creatinine 11.49, potassium 5.0, carbon dioxide 21. Liver profile normal. Albumin 3.2. Hepatitis serology nonreactive. PPD was positive. IMAGING STUDIES: Chest x-ray with negative findings. No infiltrates. ASSESSMENT: Hypertensive nephropathy with end-stage renal disease, starting hemodialysis with a positive PPD. 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 The options include 9 months of isoniazid or 3 months of rifapentine plus INH once a week or 4 months of daily of rifampin. I will be glad to initiate treatment in the outpatient setting and this is not an emergency, it can be started after discharge. Probably, I will recommend short duration regimen, probably once a week regimen, which can be monitored by the [facility]. Job ID: [id number] MTDD
[2018-12-17] MEDS ORDERED: HYDROcodone/Acetaminophen 5/325 mg Tablet PO SCH (00:30)
[2018-12-17 03:47] LABS: #Eosinphils 0.2 thou/uL (0.0-0.7); #Lymphocytes 1.6 thou/uL (1.20-3.40); #Monocytes 0.4 thou/uL (0.11-0.59); #Neutrophils 4.4 thou/uL (1.40-6.50); %Basophils 0.5 % (0.0-1.0); %Eosinophils 3.5 % (0.0-10.0); %Lymphocytes 24.2 % (21.0-51.0); %Monocytes 5.7 % (0.0-10.0); Hemoglobin 8.6 g/dL (14.0-18.0); Mean Corpuscular Hemoglobin 28.2 pg (27.0-31.0); Mean Corpuscular Volume 91.1 fL (78.0-98.0); Mean Platelet Volume 9.6 fL (7.4-10.4); Platelet Count 203 thou/uL (130-400); Red Blood Cell (RBC) Count 3.06 mill/uL (4.70-6.10); White Blood Cell (WBC) Count 6.6 thou/uL (4.8-10.8)
[2018-12-17 04:08] LABS: Anion Gap 15 mmol/L (10-20); BUN (Urea Nitrogen) 21 mg/dL (8.4-25.7); Calc. Creatinine Clearance 11 mL/min (70-130); Calcium 8.6 mg/dL (7.8-10.44); Carbon Dioxide 29 mmol/L (23-31); Chloride 99 mmol/L (98-107); Estimated GFR-MDRD 15; Glucose 90 mg/dL (83-110); Potassium 4.1 mmol/L (3.5-5.1); Sodium 139 mmol/L (136-145)
[2018-12-17 05:21] VITALS: BMI 20.1
[2018-12-17] MEDS: Brimonidine Tartrate 0.2% Ophth Soln 5 ml Bottle EA EYE SCH ×2 (09:06→20:54)
[2018-12-17] MEDS: Amlodipine 10 MG TAB PO SCH (09:07)
[2018-12-17] MEDS: Timolol 0.5% Ophth Soln 5 ml Bottle EA EYE SCH ×2 (09:07→20:54)
[2018-12-17] MEDS: Calcitriol 0.25 MCG CAP PO SCH ×2 (09:08)
[2018-12-17] MEDS: Ferrous Sulfate 325 MG TAB PO SCH ×2 (09:08→16:53)
[2018-12-17] MEDS: Sodium Bicarbonate Tab 325 MG TAB PO SCH ×2 (09:08→20:56)
[2018-12-17] MEDS: cloNIDine 0.1 MG TAB PO SCH ×2 (09:08→20:57)
[2018-12-17] MEDS: Calcium Acetate 667 MG CAP PO SCH ×3 (09:09→16:54)
[2018-12-17] MEDS ORDERED: HYDROcodone/Acetaminophen 5/325 mg Tablet PO PRN (09:50)
--- NOTE | 2018-12-17 09:56 | PRG ---
DATE OF SERVICE: 12/17/2018 SUBJECTIVE: Mr. Olivera is a 73-year-old black male with known history of chronic renal failure/end-stage renal disease. He was initially on dialysis due to uremic signs and symptoms. He is feeling better. He declined to have his AV fistula further use because of the pain and immaturity of the access. A cuffed/tunneled dialysis catheter was placed by Dr. Lucio. He underwent 3-1/2-hour dialysis. This morning, he has no new complaints. He has also been found to be PPD positive. Dr. Gregory has evaluated the patient and recommendation is to treat him with prophylactic antituberculosis medicine. No other complaints today. OBJECTIVE: VITAL SIGNS: Blood pressure 130/71, heart rate 53, respiratory rate 18, temperature 98.5, and pulse ox 100%. GENERAL: Awake, alert, and comfortable. SKIN: Adequate turgor. HEENT: He has slightly pale conjunctivae. Anicteric sclerae. NECK: No neck mass. No carotid bruits. No JVD. CHEST: No deformities. LUNGS: Clear breath sounds. HEART: Normal sinus rhythm. No murmurs, gallops, or rubs. ABDOMEN: Globular, soft, and nontender. No masses. EXTREMITIES: No edema. No deformities. MEDICATIONS: Medications of December 17, 2018, reviewed. LABORATORY DATA: Laboratories of December 17, 2018, potassium 4.1, sodium 139, chloride 99, carbon dioxide 29, BUN 21, creatinine 4.8, and calcium 8.6. White count 6.6 and hemoglobin 8.6. ASSESSMENT AND PLAN: 1. End-stage renal disease/chronic renal failure. Continue 3 times a week hemodialysis. Next dialysis will be Tuesday. He is tolerating said treatment. Fluid removal only as tolerated. 2. Anemia. Continue weekly Epogen and iron supplementation. 3. Positive PPD. Consultation with Dr. Gregory has been done. Recommendation is to start outpatient isoniazid versus 4 months of daily rifampicin. 4. The patient has no active tuberculosis. Job ID: [id number]
--- NOTE | 2018-12-17 14:04 | PRG ---
DATE OF SERVICE: 12/17/2018 SUBJECTIVE: Mr. Olivera is a 73-year-old black male with end-stage renal disease, receiving hemodialysis, started to feel better after having dialyzed yesterday. His AV fistula is not used any more due to pain, so we lost access on that, so he was using a dialysis catheter placed by Dr. Lucio. He also had visit by Infectious Disease physician, Dr. Gregory. He states he does not believe he has current active TB, but needs to have treatment for 4 months once he gets out of the hospital. OBJECTIVE: VITAL SIGNS: His current vital signs are stable. Blood pressure 130/71, heart rate 53, respirations 18, he is afebrile, and saturating 100% on room air. HEENT: Normocephalic and atraumatic cranium. Pupils are equal, round, and reactive to light and accommodation. Conjunctivae slightly pale, but no scleral icterus. There is no jaundice. NECK: Supple. No JVD. No bruits. HEART: S1-S2 with no rubs, murmurs, or gallops. LUNGS: Clear. LABORATORY DATA: Labs shows sodium 139, potassium 4.1, chloride 99, bicarb is 29, BUN is 21, creatinine 4.8, and calcium 8.6. White count is normal at 6.6 and his hemoglobin is 8.6, which is stable, has not changed for last several days. Platelet counts 203. His creatinine of 4.8 is come down from a peak of 11.5 on admission. PLAN: So, the plan is to stay in the hospital until ready to be discharged by Nephrology and Dr. Jones by tomorrow. Job ID: [id number]
[2018-12-17] MEDS: Latanoprost 0.005% Ophth Soln 2.5 ml Bottle EA EYE SCH (20:56)
[2018-12-17] MEDS: Atorvastatin Calcium 20 MG TAB PO SCH (20:57)
[2018-12-18] MEDS: cloNIDine 0.1 MG TAB PO SCH (09:18)
[2018-12-18] MEDS: Sodium Bicarbonate Tab 325 MG TAB PO SCH (09:18)
[2018-12-18] MEDS: Calcium Acetate 667 MG CAP PO SCH ×2 (09:18→12:38)
[2018-12-18] MEDS: Amlodipine 10 MG TAB PO SCH (09:18)
[2018-12-18] MEDS: Calcitriol 0.25 MCG CAP PO SCH ×2 (09:18→09:20)
[2018-12-18] MEDS: Ferrous Sulfate 325 MG TAB PO SCH (09:19)
[2018-12-18] MEDS: Timolol 0.5% Ophth Soln 5 ml Bottle EA EYE SCH (09:19)
[2018-12-18] MEDS: Brimonidine Tartrate 0.2% Ophth Soln 5 ml Bottle EA EYE SCH (09:20)
--- NOTE | 2018-12-18 10:28 | PRG ---
DATE OF SERVICE: SUBJECTIVE: Mr. Olivera is a 73-year-old black male with chronic renal failure, who was admitted for uremia. Hemodialysis was initiated. However, the AV fistula was partially functional. For that reason, a dialysis catheter was placed. He is doing well. He has placement for outpatient dialysis. He voices no new complaints today. OBJECTIVE: VITAL SIGNS: Blood pressure 149/71, heart rate 54, respiratory rate 16, temperature 96.3, and pulse ox 95%. GENERAL: Awake, alert, comfortable, not in distress. SKIN: Adequate turgor. HEENT: Slightly pale conjunctivae. Anicteric sclerae. NECK: No neck mass. No carotid bruits. No JVD. CHEST: No deformities. LUNGS: Clear breath sounds. HEART: Normal sinus rhythm. No murmur. No gallops. No rubs. ABDOMEN: Globular, soft, nontender. No masses. EXTREMITIES: No edema. No deformities. MEDICATIONS: Medications of December 18, 2018, reviewed. LABORATORY DATA: Laboratories of December 17, 2018; white count 6.6, hemoglobin 8.6, BUN 21, creatinine 4.8. Sodium 139, potassium 4.1, chloride 99, carbon dioxide 29. ASSESSMENT AND PLAN: 1. End-stage renal disease, stable, tolerating current hemodialysis regimen. No indication for any dialytic intervention. 2. Anemia, continuing weekly Epogen. 3. Hyperphosphatemia/secondary hyperparathyroidism, currently on calcitriol and phosphate binders. Agree with planned discharge. Job ID: [id number]
--- NOTE | 2018-12-18 11:19 | DIS ---
DATE OF ADMISSION: 12/12/2018 DATE OF DISCHARGE: 12/18/2018 DISCHARGE DIAGNOSES: 1. End-stage renal disease secondary to hypertensive nephropathy. 2. Anemia of chronic disease. 3. Secondary hyperparathyroidism. 4. Hypertension. 5. Hyperlipidemia. 6. History of paroxysmal atrial fibrillation. 7. PPD positive. PROCEDURES: 1. Hemodialysis. 2. Placement of IJ cuffed catheter for dialysis. FOLLOWUP: Follow up, Dr. Perez in 3 days; follow up, Dr. Mir; follow up, Dr. Hernandes; follow up for dialysis; and follow up, Dr. Gregory. DISCHARGE MEDICATIONS: Amlodipine 10 mg daily, atorvastatin 20 mg daily, eye drops, calcitriol 0.25 daily, Epogen weekly, ferrous sulfate 325 daily, sodium bicarb 650 one p.o. b.i.d., INH per Dr. Gregory, and clonidine 0.1 p.o. b.i.d. BRIEF HISTORY: This is a 73-year-old black male with history of end-stage renal disease secondary to hypertensive nephropathy followed by Dr. Hernandes. The patient has been experiencing increasing uremia. He had been more fatigued. No complaints of any chest pain or shortness of breath. He is being admitted for urgent dialysis secondary to this uremia. An AV fistula had been placed by Dr. Mir on December 10. However, at this time, the patient is in need of dialysis. HOSPITAL COURSE: The patient did receive hemodialysis. However, his graft was not quite mature. An IJ cuff catheter was placed by Dr. Lucio. The patient has improved daily. He is feeling much better, much stronger. He is to follow up with the above doctors. His PPD test did come back positive. Dr. Gregory is recommending treatment with INH. He will follow up with us as an outpatient, and the patient will be also monitored by [facility]. LABORATORY DATA: White count of 6.6, H and H of 8.6 and 27.9. Electrolytes normal. Creatinine 4.80, BUN 21, glucose 90. Hepatitis C study negative. Hepatitis B study negative. Job ID: [id number]
[2018-12-18 12:39] VITALS: BP 108/59; TEMP 96.7
== END 2018-12-18 15:00 | disposition home or self-care (01) | DRG 673 ==
LOC: ERS 09:59 → 2NO 11:50
PROVIDERS: ADMIT Family Medicine; ATTEND Family Medicine
PROC: 5A1D70Z Performance of Urinary Filtration, Intermittent, Less than 6 Hours Per Day (ICD-10-PCS; 2018-12-12)
PROC: 0JH63XZ Insertion of Tunneled Vascular Access Device into Chest Subcutaneous Tissue and Fascia, Percutaneous Approach (ICD-10-PCS; principal; 2018-12-16)
PROC: 02HV33Z Insertion of Infusion Device into Superior Vena Cava, Percutaneous Approach (ICD-10-PCS; 2018-12-16)
PROC: B548ZZA Ultrasonography of Superior Vena Cava, Guidance (ICD-10-PCS; 2018-12-16)
PROC: B518YZA Fluoroscopy of Superior Vena Cava using Other Contrast, Guidance (ICD-10-PCS; 2018-12-16)
DX: I12.0 Hypertensive chronic kidney disease with stage 5 chronic kidney disease or end stage renal disease (principal); N18.6 End stage renal disease; N25.81 Secondary hyperparathyroidism of renal origin; T82.848A Pain due to vascular prosthetic devices, implants and grafts, initial encounter; E78.5 Hyperlipidemia, unspecified; I73.9 Peripheral vascular disease, unspecified; M19.90 Unspecified osteoarthritis, unspecified site; D63.1 Anemia in chronic kidney disease; E83.39 Other disorders of phosphorus metabolism; R76.11 Nonspecific reaction to tuberculin skin test without active tuberculosis; I48.0 Paroxysmal atrial fibrillation; Z85.46 Personal history of malignant neoplasm of prostate; Z90.49 Acquired absence of other specified parts of digestive tract; Z90.79 Acquired absence of other genital organ(s); Y83.8 Other surgical procedures as the cause of abnormal reaction of the patient, or of later complication, without mention of misadventure at the time of the procedure
CPT/HCPCS: 36415; 71045; 71046; 76000; 80048; 80053; 82550; 83690; 85025; 86580; 86704; 86706; 86803; 87340; 93005; C1752; C1769; J0670; J0690; J1644; J2001; J2250; J2405; J2704; J3010; Q5105

== ENCOUNTER 2019-02-19 06:46 | Day surgery (SDC) | payer MEDICARE ==
[2019-02-16 12:40] VITALS: BMI 21.7
[2019-02-19] MEDS ORDERED: Heparin 1,000 UNITS/ML VIAL ONE (09:00)
--- NOTE | 2019-02-19 10:10 | SPC ---
LEFT UPPER EXTREMITY FISTULOGRAM: HISTORY: Increased pressures. Prolonged bleeding time. COMPARISON: None. Exposure: 2.3 minutes; 9897 mg^*sq cm. FINDINGS: Successful left upper extremity fistulogram. There are filling defects and irregularity involving the cephalic venous outflow tract. There is abrupt tapering. A microwire could not be advanced beyond this region suggesting a chronic occlusion/thrombosis. There are venous collaterals which eventually opacify larger central veins at the level of the proximal forearm and axilla. These veins are presumed to be the basilic and brachial veins. Multiple attempts were made to try to opacify the more central veins but were unsuccessful given significant reflux of contrast into the arterial system, at the level of anastomosis. Visualized arterial system is unremarkable. TECHNIQUE: Consent was obtained to perform a left upper extremity fistulogram. Left arm was prepped and draped i n a sterile fashion. 1% lidocaine, buffered with sodium bicarbonate was used for local anesthesia. The venous outflow tract did have a thrill and with palpation, a micropuncture needle was used to can nulate the cephalic venous outflow tract. A 0.018 microwire was advanced through the needle. The wire did pass to the level of the mid forearm. The wire would not extend further. However, enough of the wire was in the venous outflow tract to allow placement of a 4 Marshallese sheath. Through this sheath, a fistulogram was performed. After performing the fistulogram, the sheath was removed. Hemost asis was achieved with manual pressure. No immediate or postprocedure complications. IMPRESSION: Successful left upper extremity fistulogram. 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 Wire could not be passed beyond this level of thrombosis/narrowing. Transcribed Date/Time: 02/19/2019 10:17 AM
== END 2019-02-19 09:35 | disposition home or self-care (01) ==
LOC: SPEC 06:46
PROVIDERS: ATTEND Surgery
PROC: B51W1ZZ Fluoroscopy of Dialysis Shunt/Fistula using Low Osmolar Contrast (ICD-10-PCS; principal; 2019-02-19)
DX: I12.0 Hypertensive chronic kidney disease with stage 5 chronic kidney disease or end stage renal disease (principal); N18.6 End stage renal disease; K21.9 Gastro-esophageal reflux disease without esophagitis; I48.0 Paroxysmal atrial fibrillation; E78.5 Hyperlipidemia, unspecified; Z87.891 Personal history of nicotine dependence
CPT/HCPCS: 36901; J1644

== ENCOUNTER 2019-02-28 07:06 | Outpatient (CLI) | payer MEDICARE ==
--- NOTE | 2019-02-28 10:16 | ULT ---
ULTRASOUND VESSEL MAPPING FOR DIALYSIS ACCESS: HISTORY: ESRD. FINDINGS: RIGHT CEPHALIC VEIN Proximal Arm: 1.5 mm Mid Arm: 1.2 mm Distal Arm: 1.7 mm Antecubital Fossa: 1.5 mm Proximal Forearm: 1.3 mm Mid Forearm: 2.4 mm Distal Forearm: 1.9 mm RIGHT BASILIC VEIN Proximal Arm: 2.9 mm Mid Arm: 2.7 mm Distal Arm: 3.2 mm Antecubital Fossa: 2.9 mm Proximal Forearm: 1.1 mm Mid Forearm: 1.3 mm Distal Forearm: 1.2 mm Right brachial artery: 4.7 mm Right radial artery: 2.3 mm Right ulnar artery: 1.6 mm LEFT CEPHALIC VEIN Proximal Arm: 3.2 mm Mid Arm: 2.6 mm Distal Arm: 2.8 mm Antecubital Fossa: 3.0 mm Proximal Forearm: 1.7 mm Fistula of clot noted distally. LEFT BASILIC VEIN Proximal Arm: 3.3 mm Mid Arm: 2.3 mm Distal Arm: 2.2 mm Antecubital Fossa: 2.4 mm Proximal Forearm: 1.1 mm Mid Forearm: 1.2 mm Distal Forearm: 0.8 mm Left brachial artery: 3.6-3.8 mm Left ulnar artery: 2.8 mm Left ulnar artery: 1.7 mm POS: [facility]
== END 2019-02-28 07:07 | disposition home or self-care (01) ==
LOC: ULT 07:06
PROVIDERS: ATTEND Surgery
DX: Z01.818 Encounter for other preprocedural examination (principal); N18.6 End stage renal disease
CPT/HCPCS: 93970; G0365

== ENCOUNTER 2019-03-03 15:14 | Emergency (ER) | payer MEDICARE ==
--- NOTE | 2019-03-03 16:01 | RAD ---
EXAM: 4 views of the left elbow HISTORY: Bump on left elbow COMPARISON: None FINDINGS: No elbow effusion is seen. There is no evidence of acute fracture or dislocation. No signi ficant degenerative changes are seen. Moderate posterior soft tissue swelling is present. IMPRESSION: Findings posterior to the elbow are consistent with olecranon bursitis
[2019-03-03 16:50] LABS: ALT (SGPT) 12 U/L (8-55); AST (SGOT) 15 U/L (5-34); Albumin 3.9 g/dL (3.4-4.8); Alkaline Phosphatase 74 U/L (40-150); Anion Gap 18 mmol/L (10-20); BUN (Urea Nitrogen) 65 mg/dL (8.4-25.7); Bilirubin, Total 0.4 mg/dL (0.2-1.2); Calc. Creatinine Clearance 0 mL/min (70-130); Calcium 8.7 mg/dL (7.8-10.44); Carbon Dioxide 24 mmol/L (23-31); Chloride 101 mmol/L (98-107); Estimated GFR-MDRD 6; Glucose 65 mg/dL (83-110); Potassium 4.7 mmol/L (3.5-5.1); Protein, Total 6.9 g/dL (5.8-8.1); Sodium 138 mmol/L (136-145)
== END 2019-03-03 17:51 | disposition home or self-care (01) ==
LOC: ERS 15:14
DX: M70.32 Other bursitis of elbow, left elbow (principal); E87.1 Hypo-osmolality and hyponatremia; I10 Essential (primary) hypertension; E78.5 Hyperlipidemia, unspecified; M10.9 Gout, unspecified; K21.9 Gastro-esophageal reflux disease without esophagitis; Z87.891 Personal history of nicotine dependence; Z79.899 Other long term (current) drug therapy
CPT/HCPCS: 36415; 80053; 93005

== ENCOUNTER 2019-07-16 02:00 | Observation (INO) | payer MEDICARE ==
[2019-07-16 02:42] LABS: Hemoglobin 11.8 g/dL (14.0-18.0); Mean Corpuscular HGB CONC 32.7 g/dL (32.0-36.0); Mean Corpuscular Hemoglobin 31.9 pg (27.0-31.0); Mean Corpuscular Volume 97.7 fL (78.0-98.0); Platelet Count 230 thou/uL (130-400); RBC Distribution Width 22.2 % (11.5-14.5); White Blood Cell (WBC) Count 7.4 thou/uL (4.8-10.8)
[2019-07-16 02:56] LABS: ALT (SGPT) 15 U/L (8-55); AST (SGOT) 17 U/L (5-34); Albumin 4.7 g/dL (3.4-4.8); Alkaline Phosphatase 69 U/L (40-110); Anion Gap 18 mmol/L (10-20); BUN (Urea Nitrogen) 58 mg/dL (8.4-25.7); Bilirubin, Total 0.7 mg/dL (0.2-1.2); CK (CPK) 170 U/L (30-200); Calc. Creatinine Clearance 0 mL/min (70-130); Calcium 10.4 mg/dL (7.8-10.44); Carbon Dioxide 29 mmol/L (23-31); Chloride 98 mmol/L (98-107); Estimated GFR-MDRD 6; Globulin 3.6 g/dL (2.4-3.5); Glucose 91 mg/dL (83-110); Lipase 25 U/L (8-78); Potassium 4.8 mmol/L (3.5-5.1); Protein, Total 8.3 g/dL (5.8-8.1); Sodium 140 mmol/L (136-145)
[2019-07-16 02:57] LABS: Anisocytosis SLIGHT = 6-15 cells (100X) (0-5/hpf); Eosinophils 1 % (0-10); Lymphocytes 39 % (21-51); MDiff Complete? YES; Monocytes 4 % (0-10); Neutrophil 56 % (42-75); Polychromasia SLIGHT = 2-3 cells (100X) (0-2/hpf)
[2019-07-16] MEDS ORDERED: Nitroglycerin 2% Ointment 1 INCH/1 GM Packet ONE (03:23)
[2019-07-16] MEDS ORDERED: Aspirin Chewable 81 MG TAB ONE (03:23)
[2019-07-16] MEDS ORDERED: Nitroglycerin 0.4 MG TAB (25 Tab Bottle) PO PRN (03:45)
--- NOTE | 2019-07-16 04:24 | HP ---
PRIMARY CARE PROVIDER: Yinka Jones MD. MASTIC MAN: Jonnathan Montero MD CHIEF COMPLAINT: Chest pain. HISTORY OF PRESENT ILLNESS: Mr. Olivera is a pleasant 74-year-old gentleman, who was seen at [facility] on July 16, 2019. 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 Otherwise, he appears to have been doing well. Yesterday evening, he was pulling a trash bag out of a trash can at work. At that time, he developed left-sided chest pain, sharp, 8/10, not accompanied by shortness of breath or nausea or lightheadedness, nonradiating, lasted a few minutes. He reports that since then he has had on and off chest pain of similar nature, worse with certain movements and bending over. He presented to the emergency room because of the above symptoms. REVIEW OF SYSTEMS: All systems were reviewed and found to be negative except for the pertinent positives mentioned above. PAST MEDICAL HISTORY: Gastroesophageal reflux disease, dyslipidemia, hypertension, gout, end-stage renal disease, on dialysis Tuesday, , Tuesday, knee bolter is Dr. Hernandes. PAST SURGICAL HISTORY: Right shoulder surgery, left hand surgery, appendectomy, hernia repair, prostatectomy, and left upper extremity AV fistula placement. SOCIAL HISTORY: He is an ex-smoker. He denies alcohol use or recreational drug use. FAMILY HISTORY: End-stage renal disease in cousin. ALLERGIES: NO KNOWN DRUG ALLERGIES. CURRENT MEDICATIONS: These need to be clarified, but the patient appears to be takin. Amlodipine 10 mg daily. 2. Flecainide 50 mg daily. PHYSICAL EXAMINATION: GENERAL: On examination, Mr. Olivera is awake and alert, not in acute distress. VITAL SIGNS: Blood pressure is 173/81, pulse 89, respiratory rate 18, and oxygen saturation 97% on room air. He is afebrile. EYES: No scleral icterus, no conjunctival pallor. ENT: Moist mucosal membranes. No oropharyngeal erythema or exudates. NECK: Supple, nontender, trachea is midline. RESPIRATORY: Accessory muscles of breathing are not active. Chest wall movements are symmetric bilaterally. LUNGS: Clear to auscultation without wheeze, rhonchi, or crepitations. CARDIOVASCULAR: S1 and S2 are heard, regular. Peripheral pulses palpable. Left upper extremity dialysis access. NEUROLOGIC: Cranial nerves 2 through 12 are intact. MUSCULOSKELETAL: Power is 5/5 in all 4 extremities. ABDOMEN: Soft, nontender, bowel sounds are heard. SKIN: No rashes. LYMPHATIC: No cervical lymphadenopathy. PSYCHIATRIC: Normal mood, normal affect, the patient is oriented to person, place, and time. LABORATORY DATA: Mr. Olivera' labs and investigations were reviewed. I reviewed his electrocardiogram, which shows sinus rhythm with premature supraventricular complexes. I also reviewed his chest x-ray, which does not show any pulmonary infiltrates. He has normal white count, normocytic anemia with hemoglobin 11.8, normal platelet count, normal electrolytes, elevated blood urea nitrogen of 58, elevated creatinine of 10.51, unremarkable LFTs, elevated BNP of 351.6 and normal troponin-I of less than 0.010. CK is normal. ASSESSMENT AND PLAN: Mr. Olivera is a pleasant 74-year-old gentleman, who was seen at [facility] on July 16, 2019. His problem list includes: 1. Chest pain: Mr. Olivera is presenting with left-sided chest pain. His chest pain is atypical for cardiac etiology. However, there was no reproducible component on palpation. I am admitting him to observation floor at this time for telemetry monitoring and for stress test. 2. End-stage renal disease, on dialysis: The patient will need to be dialyzed on Tuesday. If he is in the hospital at that time, Nephrology Service can be consulted for maintenance dialysis. 3. Hypertension: Monitor vital signs, resume home medications once clarified, and titrate antihypertensives as needed. 4. Arrhythmia: Continue flecainide once dose is clarified. The patient will be on quality assurance monitor final. Many thanks for allowing me to participate in your patient's care. Please feel free to contact me with any questions or concerns. LEVEL OF RISK: High. LEVEL OF COMPLEXITY: High. Job ID: [id number]
[2019-07-16 06:15] VITALS: BMI 23.6
[2019-07-16 06:18] LABS: Troponin I 0.017 ng/mL (< 0.028)
--- NOTE | 2019-07-16 07:55 | RAD ---
PORTABLE RADIOGRAPH CHEST: DATE: 07/16/2019. COMPARISON: 12/16/2018. HISTORY: Chest pain. FINDINGS: No pneumothorax, pleural fluid, focal consolidation, or alveolar edema. Heart and mediastinal contou rs are unremarkable. Right dialysis catheter has been removed. IMPRESSION: No focal consolidation or alveolar edema. POS: [facility]
[2019-07-16] MEDS ORDERED: Aspirin 325 mg Enteric Coated Tablet PO SCH (09:00)
[2019-07-16 09:11] LABS: Troponin I 0.019 ng/mL (< 0.028)
[2019-07-16] MEDS ORDERED: ADENOSINE 60 MG/20 ML VIAL ONE (13:00)
[2019-07-16 13:48] VITALS: BP 161/71; TEMP 97.5
--- NOTE | 2019-07-16 14:01 | NM ---
EXAM: NM Cardiac Stress W EF WF PROVIDED CLINICAL HISTORY: Chest pain. History of end-stage renal disease, hypertension, dyslipidemia. COMPARISON: No FINDINGS: There is significant motion artifact on the stress acquisition portion of the study which limits eval uation. There is a small defect seen within the anterolateral left ventricular wall on the stress portion of the examination with reversibility noted on resting acquisition. This is felt to be techni donovan in origin as opposed to a reversible defect related to ischemia. No additional reversible defect is identified. The gated images demonstrate hypokinesis involving the septum and inferior left ventricular wall. Nor mal wall thickening is present. Calculated left ventricular ejection fraction is 52%. IMPRESSION: 1. Equivocal study for mild ischemia involving the anterolateral left ventricular wall. However, the area of mild reversibility is thought to be artifactual related to patient motion as opposed to an actual reversible defect. 2. Hypokinesis involving the septum and inferior left ventricular wall. 3. LVEF of 52%.
--- NOTE | 2019-07-16 22:18 | DIS ---
DATE OF ADMISSION: 07/16/2019 DATE OF DISCHARGE: 07/16/2019 DISCHARGE DIAGNOSES: 1. Chest pain, noncardiac. 2. End-stage renal disease with hemodialysis. 3. Hypertension, stable. 4. Sinus arrhythmia, treated with flecainide. CONSULTATIONS: None. PERTINENT LABORATORY AND X-RAY FINDINGS: Creatinine 10.51. Estimated GFR of 6. Troponin I negative x3. BNP 352. Lipase 25. CBC showed a hemoglobin of 12, hematocrit 36, platelet count 230. Portable chest x-ray dated 07/16/2019 showed no acute process. Cardiolite stress test dated 07/16/2019 showed no evidence of reversible ischemia. Motion artifact noted on the anterolateral left ventricular wall. Calculated ejection fraction of 52%. HOSPITAL COURSE: The patient was observed on the telemetry unit after initially presenting with atypical chest pain. The patient underwent serial cardiac biomarkers which were negative x3 proceeding to Cardiolite stress testing showing motion artifact in the anterolateral wall without focal ischemia. Calculated ejection fraction of 52%. Telemetry monitoring showed sinus arrhythmia with first-degree AV block, but no evidence of tachyarrhythmia. Screening metabolic survey confirmed end-stage renal disease with a creatinine of 10.51. The patient was noted to be stable and not in volume overload with recommendations to continue maintenance hemodialysis on an outpatient basis. I have examined the patient at the time of discharge and discussed followup instructions. The patient verbalized understanding and agreement, ready for discharge on 07/16/2019. DISCHARGE MEDICATIONS: 1. Amlodipine 5 mg p.o. b.i.d. 2. Lipitor 40 mg p.o. at bedtime. 3. Brimonidine/timolol one drop to each eye b.i.d. 4. Vitamin D3 two capsules p.o. daily. 5. Flecainide 100 mg p.o. b.i.d. 6. Xalatan 0.005% one drop to each eye at bedtime. 7. PhosLo 1334 mg p.o. t.i.d. 8. Multivitamin 1 tablet p.o. daily. FOLLOWUP: Patient will follow up with his primary care provider, Dr. Yinka Jones. The patient will follow up with his primary card setter, Dr. Jonnathan Montero, within 1 week of discharge. CONDITION ON DISCHARGE: Stable. ACTIVITY: Ad-celia. DIET: Heart healthy and renal. CODE STATUS: Full. DISPOSITION: To home on 07/16/2019.d Job ID: [id number]
== END 2019-07-16 15:44 | disposition home or self-care (01) ==
LOC: ERS 02:00 → 2SW 04:49
PROVIDERS: ADMIT Internal Medicine; ATTEND Internal Medicine
DX: R07.89 Other chest pain (principal); I12.0 Hypertensive chronic kidney disease with stage 5 chronic kidney disease or end stage renal disease; N18.6 End stage renal disease; I49.9 Cardiac arrhythmia, unspecified; E78.5 Hyperlipidemia, unspecified; K21.9 Gastro-esophageal reflux disease without esophagitis; M10.9 Gout, unspecified; Z79.899 Other long term (current) drug therapy; Z87.891 Personal history of nicotine dependence; Z99.2 Dependence on renal dialysis
CPT/HCPCS: 71045; 78452; 80053; 82550; 83690; 83880; 84484 ×2; 85025; 93005; 93017; 99285; A9500; G0378 ×2; 36415; J0153

== ENCOUNTER 2019-07-28 09:34 | Emergency (ER) | payer MEDICARE | END 2019-07-28 10:41 | disposition home or self-care (01) | LOC: ERS 09:34 | DX: K64.9 Unspecified hemorrhoids (principal); K21.9 Gastro-esophageal reflux disease without esophagitis; E78.5 Hyperlipidemia, unspecified; M10.9 Gout, unspecified; I12.0 Hypertensive chronic kidney disease with stage 5 chronic kidney disease or end stage renal disease; N18.6 End stage renal disease; Z87.891 Personal history of nicotine dependence; Z79.899 Other long term (current) drug therapy | CPT/HCPCS: 99283 ==

== ENCOUNTER 2019-08-17 06:51 | Emergency (ER) | payer MEDICARE ==
[2019-08-17] MEDS ORDERED: Acetaminophen 500 MG TAB ONE (07:25)
[2019-08-17] MEDS ORDERED: Ketorolac Tromethamine 30 MG/ML VIAL ONE (07:25)
--- NOTE | 2019-08-17 08:00 | RAD ---
3 views lumbar spine: 08/17/2019 COMPARISON: 01/16/2005 HISTORY: Low back pain with left-sided hip pain FINDINGS: Numerous postoperative clips are noted within the pelvis. Lumbar pedicles appear intact on the frontal imaging. Lateral exam demonstrates no significant anterolisthesis or retrolisthesis. Multilevel lower lumbar spine facet hypertrophy, most prominent at the L4-5 and L5-S1 levels. Multile valentin disc space narrowing with anterior osteophyte formation noted within the lumbar spine, most prominent at the L2-3, L3-4, and L4-5 levels. On the lateral examination there are areas of increased density overlying the T11 and T12 vertebral b odies of uncertain etiology. These findings may be the result of laterally projecting osteophyte formation. Sclerotic bone lesions are difficult to exclude on this examination. Recommend considerati on for follow-up imaging with CT to exclude underlying sclerotic bone lesions. IMPRESSION: Multilevel lumbar spine degenerative change. No acute fracture or dislocation. Questionab le sclerotic foci within T11 and T12 versus laterally projecting osteophytes. Follow-up CT suggested. CODE T
--- NOTE | 2019-08-17 08:01 | RAD ---
Frontal radiograph pelvis: 08/17/2019 COMPARISON: None HISTORY: Pain FINDINGS: Numerous postoperative clips overlie the pelvis. Probable ankylosis of sacroiliac joints. N o widening of the pubic symphysis. No displaced fracture. Femoral heads project normally over the respective acetabulum. Moderate degenerative change of bilateral hips. IMPRESSION: Chronic findings as above.
--- NOTE | 2019-08-17 09:53 | CT ---
LUMBAR SPINE CT SCAN WITHOUT IV CONTRAST: Date: 08/17/2019 HISTORY: Low back pain and left hip pain. FINDINGS: There is very exuberant disc osteophytosis, as well as hypertrophic osteophytosis and extensive enthe sophytic changes at multiple levels involving rib insertion regions, particularly the visualized lowe r thoracic spine level. Prominent Schmorl's nodes noted at L3-L4 and L1-L2 levels. No evidence for ac lorraine fracture or dislocation. Evidence for small left renal cyst. Renal vascular calcifications. T12-L1 disc: Unremarkable. L1-L2 disc: Diffuse disc bulging with moderate canal and lateral recess and mild foraminal stenosis. L2-L3 disc: Moderate central canal and moderate to severe lateral recess and bilateral foraminal heather nosis. L3-L4 disc: Moderate central canal and moderate to severe bilateral recess stenosis and bilateral fo raminal stenosis. L4-L5 disc: Severe central canal and lateral recess and bilateral foraminal stenosis. L5-S1 disc: Diffuse disc osteophytosis changes with some mild central canal and moderate lateral rec ess and moderate to severe bilateral foraminal stenosis. 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 IMPRESSION: 1. No acute fracture or dislocation. 2. Variable severity canal, lateral recess, and foraminal stenosis. 3. 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 POS: [facility]
== END 2019-08-17 09:53 | disposition home or self-care (01) ==
LOC: ERS 06:51
DX: M54.5 Low back pain (principal); M19.90 Unspecified osteoarthritis, unspecified site; M25.552 Pain in left hip; K21.9 Gastro-esophageal reflux disease without esophagitis; E78.5 Hyperlipidemia, unspecified; I12.0 Hypertensive chronic kidney disease with stage 5 chronic kidney disease or end stage renal disease; N18.6 End stage renal disease; M10.9 Gout, unspecified; Z87.891 Personal history of nicotine dependence; Z79.899 Other long term (current) drug therapy
CPT/HCPCS: 72100; 72131; 72170; 96372; J1885

== ENCOUNTER 2020-03-11 13:53 | Outpatient (CLI) | payer MEDICARE ==
--- NOTE | 2020-03-11 14:41 | ULT ---
Exam: Bilateral renal ultrasound HISTORY: Back pain. Evaluate for hydronephrosis. COMPARISON: None FINDINGS: Right kidney: There is echogenicity of the renal cortex. Anechoic focus in the upper to mid right florecita al pelvis may represent a parapelvic cyst. No hydronephrosis. Right kidney measurements: 8.0 x 4.5 x 4.5. cm. Left kidney: There is increased echogenicity of the renal cortex. There is an exophytic cyst emanatin g from the midpole the left kidney measuring 1.2 x 0.9 x 1.1 cm. No hydronephrosis Left kidney measurements 8.7 x 4.1 x 4.7 cm. Urinary bladder: Bladder is empty, limiting evaluation IMPRESSION: 1. No hydronephrosis 2. Right parapelvic cyst and left renal cortical cyst. 3. Increased echogenicity of the kidneys. Correlate for medical renal disease.
== END 2020-03-11 13:54 | disposition home or self-care (01) ==
LOC: BICULT 13:53
PROVIDERS: ATTEND Internal Medicine Nephrology
DX: M54.9 Dorsalgia, unspecified (principal); N28.1 Cyst of kidney, acquired; R93.422 Abnormal radiologic findings on diagnostic imaging of left kidney; R93.421 Abnormal radiologic findings on diagnostic imaging of right kidney
CPT/HCPCS: 76770

== ENCOUNTER 2020-07-21 08:49 | Outpatient (CLI) | payer MEDICARE ==
--- NOTE | 2020-07-21 09:29 | ULT ---
Exam: Bilateral renal ultrasound HISTORY: Left flank pain, x4 months COMPARISON: 03/11/2020 FINDINGS: Right kidney: Renal cortical thinning.. No hydronephrosis. Right kidney measurements: 8.2 x 4.0 x 3.9 cm. Left kidney: Renal cortical thinning. Exophytic cyst measuring 0.7 and 0.8 cm. No hydronephrosis Left kidney measurements 9.1 x 5.4 x 4.7 cm. Urinary bladder: Normal mucosa. IMPRESSION: No hydronephrosis.
== END 2020-07-21 08:50 | disposition home or self-care (01) ==
LOC: BICULT 08:49
PROVIDERS: ATTEND Family Medicine
DX: R10.9 Unspecified abdominal pain (principal)
CPT/HCPCS: 76770

== ENCOUNTER 2020-10-27 15:23 | Observation (INO) | payer MEDICARE ==
[2020-10-27 16:04] LABS: #Basophils 0.1 thou/uL (0.0-0.2); #Eosinphils 0.1 thou/uL (0.0-0.7); #Lymphocytes 2.9 thou/uL (1.20-3.40); #Monocytes 0.5 thou/uL (0.11-0.59); #Neutrophils 4.3 thou/uL (1.40-6.50); %Basophils 0.9 % (0.0-1.0); %Eosinophils 1.7 % (0.0-10.0); %Lymphocytes 36.8 % (21.0-51.0); %Monocytes 6.6 % (0.0-10.0); %Neutrophils 54.1 % (42.0-75.0); Hemoglobin 12.1 g/dL (14.0-18.0); Mean Corpuscular HGB CONC 31.8 g/dL (32.0-36.0); Mean Corpuscular Hemoglobin 30.3 pg (27.0-31.0); Mean Corpuscular Volume 95.3 fL (78.0-98.0); Mean Platelet Volume 9.3 fL (7.4-10.4); Platelet Count 272 thou/uL (130-400); RBC Distribution Width 20.5 % (11.5-14.5); Red Blood Cell (RBC) Count 3.98 mill/uL (4.70-6.10)
[2020-10-27 16:06] LABS: Bacteria/HPF None Seen HPF (None Seen); Bilirubin Negative (Negative); Blood, Urine Trace (Negative); Clarity Clear (Clear); Glucose, Urine (Dipstick) 200 mg/dL (Negative); Ketone, Urine Negative (Negative); Leukocyte Negative Leu/uL (Negative); Nitrite Negative (Negative); Protein, Urine (Dipstick) 300 mg/dL (Neg-Trace); RBC/HPF 0-3 HPF (0-3); Specific Gravity, Urine 1.009 (1.002-1.036); Squamous Epithelial 0-3 HPF (0-3); Urobilinogen Normal mg/dL (Less than 2); WBC/HPF 0-3 HPF (0-3); pH, Urine 8.5 (5.0-9.0)
[2020-10-27] MEDS ORDERED: Ondansetron ODT 4 MG TAB ONE (16:09)
[2020-10-27 16:25] LABS: Anion Gap 20 mmol/L (10-20); BUN (Urea Nitrogen) 72 mg/dL (8.4-25.7); Calc. Creatinine Clearance 0 mL/min (70-130); Carbon Dioxide 27 mmol/L (23-31); Chloride 97 mmol/L (98-107); Potassium 4.4 mmol/L (3.5-5.1); Sodium 140 mmol/L (136-145)
[2020-10-27 16:26] LABS: ALT (SGPT) 16 U/L (8-55); AST (SGOT) 15 U/L (5-34); Albumin 4.2 g/dL (3.4-4.8); Alkaline Phosphatase 79 U/L (40-110); Bilirubin, Total 0.7 mg/dL (0.2-1.2); Calcium 10.2 mg/dL (7.8-10.44); Globulin 3.7 g/dL (2.4-3.5); Glucose 109 mg/dL (83-110); Protein, Total 7.9 g/dL (5.8-8.1)
[2020-10-27] MEDS ORDERED: hydrALAZINE 20 MG/ML VIAL ONE (18:50)
[2020-10-27] MEDS ORDERED: Ondansetron PF 4 MG/2 ML Vial ONE (18:50)
[2020-10-27] MEDS ORDERED: Furosemide 100 MG/10 ML VIAL ONE (19:07)
[2020-10-27] MEDS ORDERED: Nitroglycerin 2% Ointment 1 INCH/1 GM Packet ONE (19:07)
[2020-10-27] MEDS ORDERED: Labetalol HCl 100 MG/20 ML VIAL ONE (19:47)
[2020-10-27] MEDS ORDERED: Zolpidem Tartrate 5 MG TAB PO PRN (20:14)
[2020-10-27] MEDS ORDERED: HYDROcodone/Acetaminophen 7.5/325 mg Tablet PO PRN (20:14)
[2020-10-27] MEDS ORDERED: Bisacodyl 5 MG TAB PO PRN (20:14)
[2020-10-27] MEDS ORDERED: hydrALAZINE 20 MG/ML VIAL SLOW IVP PRN (20:16)
[2020-10-27] MEDS ORDERED: Labetalol HCl 100 MG/20 ML VIAL SLOW IVP PRN (20:16)
[2020-10-27 21:31] LABS: Troponin I 0.021 ng/mL (< 0.028)
[2020-10-28 00:19] LABS: Troponin I 0.027 ng/mL (< 0.028)
[2020-10-28] MEDS ORDERED: Ondansetron PF 4 MG/2 ML Vial IVP PRN (01:00)
[2020-10-28] MEDS ORDERED: Ondansetron ODT 4 MG TAB SL PRN (01:00)
[2020-10-28 01:02] LABS: HBSAg Index 0.18 S/CO (0-0.99); Hep B Surf Ag Non-Reactive S/CO (NonReactive)
[2020-10-28] MEDS: Heparin 5,000 UNITS/ML VIAL SC SCH ×3 (01:11→21:05)
[2020-10-28 01:54] VITALS: BMI 22.6
[2020-10-28 05:25] LABS: SARS-CoV-2 PCR by NAA Not Detected (NotDetected)
[2020-10-28 05:35] LABS: Hemoglobin 11.4 g/dL (14.0-18.0); Mean Corpuscular HGB CONC 31.9 g/dL (32.0-36.0); Mean Corpuscular Hemoglobin 30.3 pg (27.0-31.0); Mean Platelet Volume 9.8 fL (7.4-10.4); Platelet Count 245 thou/uL (130-400); RBC Distribution Width 20.6 % (11.5-14.5); Red Blood Cell (RBC) Count 3.78 mill/uL (4.70-6.10); White Blood Cell (WBC) Count 11.3 thou/uL (4.8-10.8)
[2020-10-28 05:49] LABS: Anion Gap 20 mmol/L (10-20); BUN (Urea Nitrogen) 52 mg/dL (8.4-25.7); Calc. Creatinine Clearance 6 mL/min (70-130); Calcium 9.8 mg/dL (7.8-10.44); Carbon Dioxide 23 mmol/L (23-31); Chloride 99 mmol/L (98-107); Glucose 89 mg/dL (83-110); Lymphocytes 13 % (21-51); MDiff Complete? YES; Monocytes 6 % (0-10); Neutrophil 81 % (42-75); Platelet Morphology Comment Appears Adequate; Potassium 5.1 mmol/L (3.5-5.1); Sodium 137 mmol/L (136-145)
[2020-10-28] MEDS: Sevelamer Carbonate 800 MG TAB PO SCH ×3 (09:25→17:54)
[2020-10-28] MEDS: Aspirin 81 mg Enteric Coated Tablet PO SCH (13:54)
[2020-10-28] MEDS: Flecainide 50 MG TAB PO SCH (13:54)
[2020-10-28] MEDS: Losartan 25 MG TAB PO SCH (13:55)
[2020-10-28] MEDS: Folic Acid/Vit B Comp W-C PO SCH (13:55)
[2020-10-28] MEDS: Brimonidine Tartrate 0.2% Ophth Soln 5 ml Bottle EA EYE SCH ×3 (20:51→21:04)
[2020-10-28] MEDS ORDERED: Amlodipine 10 MG TAB PO SCH (21:00)
[2020-10-28] MEDS: Timolol 0.5% Ophth Soln 5 ml Bottle EA EYE SCH ×2 (21:03→21:48)
[2020-10-29 05:31] LABS: #Basophils 0.1 thou/uL (0.0-0.2); #Eosinphils 0.1 thou/uL (0.0-0.7); #Lymphocytes 3.4 thou/uL (1.20-3.40); #Monocytes 0.9 thou/uL (0.11-0.59); #Neutrophils 4.5 thou/uL (1.40-6.50); %Basophils 0.7 % (0.0-1.0); %Eosinophils 1.7 % (0.0-10.0); %Lymphocytes 38.3 % (21.0-51.0); %Monocytes 9.7 % (0.0-10.0); %Neutrophils 49.6 % (42.0-75.0); Eosinophils 1 % (0-10); Hemoglobin 11.6 g/dL (14.0-18.0); Hypochromia SLIGHT = 6-15 cells (100X) (0-5/hpf); Lymphocytes 37 % (21-51); MDiff Complete? YES; Mean Corpuscular HGB CONC 30.8 g/dL (32.0-36.0); Mean Corpuscular Hemoglobin 29.6 pg (27.0-31.0); Mean Corpuscular Volume 96.1 fL (78.0-98.0); Mean Platelet Volume 9.7 fL (7.4-10.4); Monocytes 5 % (0-10); Neutrophil 51 % (42-75); Platelet Count 232 thou/uL (130-400); Platelet Morphology Comment Appears Adequate; RBC Distribution Width 20.3 % (11.5-14.5); Reactive Lymphocytes 6 % (0-10); Red Blood Cell (RBC) Count 3.93 mill/uL (4.70-6.10); White Blood Cell (WBC) Count 8.1 thou/uL (4.8-10.8)
[2020-10-29 05:40] LABS: Anion Gap 20 mmol/L (10-20); BUN (Urea Nitrogen) 45 mg/dL (8.4-25.7); Calc. Creatinine Clearance 6 mL/min (70-130); Calcium 9.3 mg/dL (7.8-10.44); Carbon Dioxide 22 mmol/L (23-31); Chloride 98 mmol/L (98-107); Glucose 71 mg/dL (83-110); Potassium 4.6 mmol/L (3.5-5.1); Sodium 135 mmol/L (136-145)
[2020-10-29] MEDS: Sevelamer Carbonate 800 MG TAB PO SCH ×2 (08:30→14:37)
[2020-10-29] MEDS: Brimonidine Tartrate 0.2% Ophth Soln 5 ml Bottle EA EYE SCH (08:31)
[2020-10-29] MEDS: Aspirin 81 mg Enteric Coated Tablet PO SCH (08:32)
[2020-10-29] MEDS: Flecainide 50 MG TAB PO SCH (08:32)
[2020-10-29] MEDS: Folic Acid/Vit B Comp W-C PO SCH (08:33)
[2020-10-29] MEDS: Heparin 5,000 UNITS/ML VIAL SC SCH (08:33)
[2020-10-29] MEDS: Losartan 25 MG TAB PO SCH (08:33)
[2020-10-29 13:58] VITALS: BP 170/87; TEMP 98
== END 2020-10-29 15:41 | disposition home or self-care (01) ==
LOC: ERS 15:23 → 2SW 19:40
PROVIDERS: ADMIT Internal Medicine; ATTEND Internal Medicine
DX: I13.2 Hypertensive heart and chronic kidney disease with heart failure and with stage 5 chronic kidney disease, or end stage renal disease (principal); N18.6 End stage renal disease; I50.31 Acute diastolic (congestive) heart failure; E87.70 Fluid overload, unspecified; I16.0 Hypertensive urgency; J81.0 Acute pulmonary edema; E78.5 Hyperlipidemia, unspecified; M19.90 Unspecified osteoarthritis, unspecified site; Z79.82 Long term (current) use of aspirin; Z79.899 Other long term (current) drug therapy; Z87.891 Personal history of nicotine dependence; Z99.2 Dependence on renal dialysis; Z20.822 Contact with and (suspected) exposure to COVID-19
CPT/HCPCS: 71045; 80048 ×2; 80053; 82962 ×2; 84484 ×2; 85025 ×3; 87205; 87340; 93005; 94760 ×2; 96374; 96375; 99285; U0003; U0005; 36415; 36416; 81003; 81015; 87635; 90935; 96372; 96376; G0257; G0378; J0360; J1644; J1940; J2405; Q0162

== ENCOUNTER 2021-02-12 | Outpatient (CLI) | payer MEDICARE | END 2021-02-12 11:52 | disposition home or self-care (01) ==

== ENCOUNTER 2021-03-01 04:36 | Emergency (ER) | payer OTHER, MEDICARE | END 2021-03-01 06:09 | disposition home or self-care (01) | LOC: ERS 04:36 | DX: S16.1XXA Strain of muscle, fascia and tendon at neck level, initial encounter (principal); I12.0 Hypertensive chronic kidney disease with stage 5 chronic kidney disease or end stage renal disease; N18.6 End stage renal disease; K21.9 Gastro-esophageal reflux disease without esophagitis; E78.5 Hyperlipidemia, unspecified; M10.9 Gout, unspecified; Z99.2 Dependence on renal dialysis; Z87.891 Personal history of nicotine dependence; Z79.82 Long term (current) use of aspirin; Z79.899 Other long term (current) drug therapy; V49.9XXA Car occupant (driver) (passenger) injured in unspecified traffic accident, initial encounter | CPT/HCPCS: 99281 ==

== ENCOUNTER 2021-03-05 04:08 | Inpatient (IN) | payer MEDICARE ==
[2021-03-05 05:17] LABS: ALT (SGPT) 25 U/L (8-55); AST (SGOT) 31 U/L (5-34); Albumin 2.9 g/dL (3.4-4.8); Alkaline Phosphatase 40 U/L (40-110); Anion Gap 27 mmol/L (10-20); BUN (Urea Nitrogen) 115 mg/dL (8.4-25.7); Bilirubin, Total 0.3 mg/dL (0.2-1.2); Calc. Creatinine Clearance 0 mL/min (70-130); Calcium 9.5 mg/dL (7.8-10.44); Carbon Dioxide 21 mmol/L (23-31); Chloride 97 mmol/L (98-107); Globulin 2.4 g/dL (2.4-3.5); Glucose 139 mg/dL (83-110); Potassium 4.8 mmol/L (3.5-5.1); Protein, Total 5.3 g/dL (5.8-8.1); Sodium 140 mmol/L (136-145)
[2021-03-05 05:27] LABS: #Basophils 0.1 thou/uL (0.0-0.2); #Lymphocytes 2.5 thou/uL (1.20-3.40); #Monocytes 0.9 thou/uL (0.11-0.59); #Neutrophils 11.8 thou/uL (1.40-6.50); %Basophils 0.4 % (0.0-1.0); %Eosinophils 0.2 % (0.0-10.0); %Lymphocytes 16.1 % (21.0-51.0); %Monocytes 5.8 % (0.0-10.0); %Neutrophils 77.4 % (42.0-75.0); Hemoglobin 3.9 g/dL (14.0-18.0); Mean Corpuscular HGB CONC 30.2 g/dL (32.0-36.0); Mean Corpuscular Hemoglobin 29.4 pg (27.0-31.0); Mean Corpuscular Volume 97.3 fL (78.0-98.0); Mean Platelet Volume 8.6 fL (7.4-10.4); Platelet Count 225 thou/uL (130-400); RBC Distribution Width 23.5 % (11.5-14.5); Red Blood Cell (RBC) Count 1.34 mill/uL (4.70-6.10); White Blood Cell (WBC) Count 15.2 thou/uL (4.8-10.8)
[2021-03-05] MEDS ORDERED: Acetaminophen 500 MG TAB ONE (05:29)
[2021-03-05] MEDS ORDERED: Calcium Gluc 4.6 MEQ/10 ML (100 MG/ML) ONE ×2 (05:57→06:07)
[2021-03-05 06:17] LABS: CKMB 5.3 ng/mL (0-6.6)
[2021-03-05] MEDS ORDERED: Pantoprazole 40 MG VIAL ONE (06:26)
[2021-03-05] MEDS ORDERED: Cefepime 2 GM VIAL ONE (06:26)
[2021-03-05] MEDS ORDERED: Sodium Chloride 0.9% 100 ML ONE (06:26)
[2021-03-05 06:32] LABS: INR-International Normal Ratio 1.4; PTT 25.9 sec (22.9-36.1); Prothrombin Time 16.9 sec (12.0-14.7)
[2021-03-05 07:49] LABS: SARS-CoV-2 NAA Rapid Test Not Detected (NotDetected)
[2021-03-05 09:11] LABS: Lactic Acid 6.3 mmol/L (0.5-2.2)
[2021-03-05] MEDS ORDERED: Magnesium 2 GM/50 ML 2 GM in Premix Bag 1 BAG IVPB SCH (10:15)
[2021-03-05 10:47] LABS: Hemoglobin 6.9 g/dL (14.0-18.0)
[2021-03-05 11:14] LABS: Lipase 72 U/L (8-78)
[2021-03-05 11:18] LABS: Troponin I 0.174 ng/mL (< 0.028)
[2021-03-05 11:32] LABS: Lactic Acid 3.2 mmol/L (0.5-2.2)
[2021-03-05 16:39] LABS: Reticulocyte Count 6.2 % (0.5-1.5)
[2021-03-05 17:15] LABS: Troponin I 0.562 ng/mL (< 0.028)
[2021-03-05 18:14] LABS: Ferritin 3405.07 ng/mL (22-322)
[2021-03-05 18:51] VITALS: BMI 21.3
[2021-03-05 18:55] LABS: Anion Gap 18 mmol/L (10-20); BUN (Urea Nitrogen) 50 mg/dL (8.4-25.7); Calc. Creatinine Clearance 11 mL/min (70-130); Calcium 8.9 mg/dL (7.8-10.44); Carbon Dioxide 31 mmol/L (23-31); Chloride 98 mmol/L (98-107); Glucose 83 mg/dL (83-110); Potassium 3.6 mmol/L (3.5-5.1); Sodium 143 mmol/L (136-145)
[2021-03-05 21:09] LABS: Troponin I 0.843 ng/mL (< 0.028)
[2021-03-05] MEDS: Timolol 0.5% Ophth Soln 5 ml Bottle EA EYE SCH (22:41)
[2021-03-05] MEDS: Brimonidine Tartrate 0.2% Ophth Soln 5 ml Bottle EA EYE SCH (22:41)
[2021-03-05] MEDS: Latanoprost 0.005% Ophth Soln 2.5 ml Bottle EA EYE SCH (22:42)
[2021-03-05] MEDS: Pantoprazole 40 MG VIAL IVP SCH (22:42)
[2021-03-06 00:08] LABS: Hemoglobin 8.3 g/dL (14.0-18.0)
[2021-03-06 05:59] LABS: Hemoglobin 8.2 g/dL (14.0-18.0); Mean Corpuscular HGB CONC 33.8 g/dL (32.0-36.0); Mean Corpuscular Hemoglobin 31.1 pg (27.0-31.0); Mean Platelet Volume 8.9 fL (7.4-10.4); Platelet Count 174 thou/uL (130-400); RBC Distribution Width 17.7 % (11.5-14.5); Red Blood Cell (RBC) Count 2.64 mill/uL (4.70-6.10); White Blood Cell (WBC) Count 10.7 thou/uL (4.8-10.8)
[2021-03-06 06:19] LABS: ALT (SGPT) 38 U/L (8-55); AST (SGOT) 60 U/L (5-34); Albumin 2.8 g/dL (3.4-4.8); Alkaline Phosphatase 39 U/L (40-110); Anion Gap 15 mmol/L (10-20); BUN (Urea Nitrogen) 50 mg/dL (8.4-25.7); Bilirubin, Total 0.6 mg/dL (0.2-1.2); Calc. Creatinine Clearance 8 mL/min (70-130); Calcium 8.9 mg/dL (7.8-10.44); Carbon Dioxide 32 mmol/L (23-31); Chloride 98 mmol/L (98-107); Globulin 2.3 g/dL (2.4-3.5); Glucose 78 mg/dL (83-110); Potassium 4.1 mmol/L (3.5-5.1); Protein, Total 5.1 g/dL (5.8-8.1); Sodium 141 mmol/L (136-145)
[2021-03-06 06:22] LABS: Anisocytosis SLIGHT = 6-15 cells (100X) (0-5/hpf); Eosinophils 4 % (0-10); Lymphocytes 21 % (21-51); MDiff Complete? YES; Monocytes 5 % (0-10); Neutrophil 70 % (42-75); Nucleated RBC 4 % (0); Polychromasia MODERATE = 3-4 cells (100X) (0-2/hpf)
[2021-03-06] MEDS: Amlodipine 5 MG TAB PO SCH (08:07)
[2021-03-06] MEDS: Losartan 25 MG TAB PO SCH (08:07)
[2021-03-06] MEDS: Pantoprazole 40 MG VIAL IVP SCH ×2 (08:07→21:54)
[2021-03-06] MEDS: Brimonidine Tartrate 0.2% Ophth Soln 5 ml Bottle EA EYE SCH ×2 (08:07→21:51)
[2021-03-06] MEDS: Timolol 0.5% Ophth Soln 5 ml Bottle EA EYE SCH ×2 (08:07→21:51)
[2021-03-06 08:50] LABS: Bacteria/HPF None Seen HPF (None Seen); Bilirubin Negative (Negative); Blood, Urine 1+ (Negative); Clarity Clear (Clear); Glucose, Urine (Dipstick) 70 mg/dL (Negative); Ketone, Urine Negative (Negative); Leukocyte Negative Leu/uL (Negative); Nitrite Negative (Negative); Protein, Urine (Dipstick) 100 mg/dL (Neg-Trace); RBC/HPF 0-3 HPF (0-3); Specific Gravity, Urine 1.009 (1.002-1.036); Squamous Epithelial 0-3 HPF (0-3); Urobilinogen Normal mg/dL (Less than 2); pH, Urine 8.5 (5.0-9.0)
[2021-03-06 08:57] LABS: Urine Culture Reflex Yes Yes
[2021-03-06] MEDS ORDERED: Fentanyl 100 MCG/2 ML VIAL ONE (10:19)
[2021-03-06] MEDS ORDERED: PROPOFOL 200 MG/20 ML VIAL ONE (10:46)
[2021-03-06] MEDS ORDERED: GoLYTELY 4,000 ml Bottle PO SCH (15:00)
[2021-03-06] MEDS ORDERED: Epoetin (ESRD) 20,000 UNITS/ML SC SCH (18:00)
[2021-03-06] MEDS ORDERED: EPOETIN ALFA-EPBX (ESRD) 4,000 UNIT/ML VIAL SC SCH (18:30)
[2021-03-06] MEDS: Latanoprost 0.005% Ophth Soln 2.5 ml Bottle EA EYE SCH (21:52)
[2021-03-06] MEDS: Atorvastatin Calcium 40 MG TAB PO SCH (21:54)
[2021-03-07 05:07] LABS: #Eosinphils 0.3 thou/uL (0.0-0.7); #Lymphocytes 2.8 thou/uL (1.20-3.40); #Monocytes 0.7 thou/uL (0.11-0.59); #Neutrophils 5.3 thou/uL (1.40-6.50); %Basophils 0.4 % (0.0-1.0); %Eosinophils 2.9 % (0.0-10.0); %Lymphocytes 30.5 % (21.0-51.0); %Neutrophils 58.2 % (42.0-75.0); Mean Corpuscular HGB CONC 34.6 g/dL (32.0-36.0); Mean Corpuscular Hemoglobin 32.1 pg (27.0-31.0); Mean Corpuscular Volume 92.8 fL (78.0-98.0); Mean Platelet Volume 8.5 fL (7.4-10.4); Platelet Count 191 thou/uL (130-400); RBC Distribution Width 18.2 % (11.5-14.5); Red Blood Cell (RBC) Count 2.48 mill/uL (4.70-6.10); White Blood Cell (WBC) Count 9.1 thou/uL (4.8-10.8)
[2021-03-07 05:11] LABS: Anion Gap 17 mmol/L (10-20); BUN (Urea Nitrogen) 56 mg/dL (8.4-25.7); Calc. Creatinine Clearance 6 mL/min (70-130); Calcium 8.3 mg/dL (7.8-10.44); Carbon Dioxide 31 mmol/L (23-31); Chloride 100 mmol/L (98-107); Glucose 81 mg/dL (83-110); Potassium 4.6 mmol/L (3.5-5.1); Sodium 143 mmol/L (136-145)
[2021-03-07] MEDS ORDERED: PROPOFOL 200 MG/20 ML VIAL ONE (09:12)
[2021-03-07] MEDS ORDERED: Promethazine HCl 25 MG/ML VIAL IM PRN (09:22)
[2021-03-07] MEDS ORDERED: Ondansetron HCl/PF 4 MG/2 ML Vial IVP PRN (09:22)
[2021-03-07] MEDS ORDERED: Promethazine HCl 25 MG/ML VIAL IVPB PRN (09:22)
[2021-03-07] MEDS: Losartan 25 MG TAB PO SCH (10:08)
[2021-03-07] MEDS: Amlodipine 5 MG TAB PO SCH (10:09)
[2021-03-07] MEDS: Timolol 0.5% Ophth Soln 5 ml Bottle EA EYE SCH ×2 (10:09→20:57)
[2021-03-07] MEDS: Brimonidine Tartrate 0.2% Ophth Soln 5 ml Bottle EA EYE SCH ×2 (10:09→20:57)
[2021-03-07] MEDS: Pantoprazole 40 MG VIAL IVP SCH (10:09)
[2021-03-07] MEDS ORDERED: Flecainide 50 MG TAB PO SCH (16:15)
[2021-03-07] MEDS: Acetaminophen 325 MG TAB PO PRN (16:43)
[2021-03-07 17:26] LABS: CKMB 3.4 ng/mL (0-6.6)
[2021-03-07] MEDS ORDERED: Aspirin 81 mg Enteric Coated Tablet PO SCH (17:30)
[2021-03-07] MEDS: Latanoprost 0.005% Ophth Soln 2.5 ml Bottle EA EYE SCH (20:56)
[2021-03-07] MEDS: Atorvastatin Calcium 40 MG TAB PO SCH (20:58)
[2021-03-08 05:16] LABS: Hemoglobin 8.7 g/dL (14.0-18.0); Mean Corpuscular HGB CONC 32.5 g/dL (32.0-36.0); Mean Corpuscular Hemoglobin 31.4 pg (27.0-31.0); Mean Corpuscular Volume 96.6 fL (78.0-98.0); Mean Platelet Volume 8.3 fL (7.4-10.4); Platelet Count 204 thou/uL (130-400); Red Blood Cell (RBC) Count 2.78 mill/uL (4.70-6.10); White Blood Cell (WBC) Count 9.1 thou/uL (4.8-10.8)
[2021-03-08 05:39] LABS: Anion Gap 14 mmol/L (10-20); BUN (Urea Nitrogen) 28 mg/dL (8.4-25.7); Calc. Creatinine Clearance 8 mL/min (70-130); Carbon Dioxide 33 mmol/L (23-31); Chloride 95 mmol/L (98-107); Potassium 4.2 mmol/L (3.5-5.1); Sodium 138 mmol/L (136-145)
[2021-03-08 05:40] LABS: Calcium 8.1 mg/dL (7.8-10.44); Glucose 141 mg/dL (83-110)
[2021-03-08 05:53] LABS: Critical Call Chem Troponin I RESULT DECREASING
[2021-03-08 06:11] LABS: CKMB 2.2 ng/mL (0-6.6)
[2021-03-08] MEDS ORDERED: Flecainide 50 MG TAB PO SCH (09:00)
[2021-03-08] MEDS: Losartan 25 MG TAB PO SCH (09:36)
[2021-03-08] MEDS: Brimonidine Tartrate 0.2% Ophth Soln 5 ml Bottle EA EYE SCH (09:37)
[2021-03-08] MEDS: Timolol 0.5% Ophth Soln 5 ml Bottle EA EYE SCH (09:37)
[2021-03-08] MEDS: Amlodipine 5 MG TAB PO SCH (09:37)
[2021-03-08] MEDS ORDERED: Gabapentin 100 MG CAP PO PRN (11:38)
[2021-03-08 11:48] VITALS: BP 126/77; TEMP 98.3
[2021-03-08] MEDS: Acetaminophen 325 MG TAB PO PRN (11:57)
== END 2021-03-08 15:55 | disposition home or self-care (01) | DRG 377 ==
LOC: ERS 04:08 → ERHOLD 06:02 → 3SE 18:50
PROVIDERS: ADMIT Internal Medicine; ATTEND Internal Medicine
PROC: 30233N1 Transfusion of Nonautologous Red Blood Cells into Peripheral Vein, Percutaneous Approach (ICD-10-PCS; 2021-03-05)
PROC: 5A1D70Z Performance of Urinary Filtration, Intermittent, Less than 6 Hours Per Day (ICD-10-PCS; 2021-03-05)
PROC: 0DJ08ZZ Inspection of Upper Intestinal Tract, Via Natural or Artificial Opening Endoscopic (ICD-10-PCS; principal; 2021-03-06)
PROC: 0DJD8ZZ Inspection of Lower Intestinal Tract, Via Natural or Artificial Opening Endoscopic (ICD-10-PCS; 2021-03-07)
DX: K57.31 Diverticulosis of large intestine without perforation or abscess with bleeding (principal); N18.6 End stage renal disease; I21.4 Non-ST elevation (NSTEMI) myocardial infarction; I12.0 Hypertensive chronic kidney disease with stage 5 chronic kidney disease or end stage renal disease; E87.2 Acidosis; I47.2 Ventricular tachycardia; I42.0 Dilated cardiomyopathy; K29.01 Acute gastritis with bleeding; D72.829 Elevated white blood cell count, unspecified; E78.5 Hyperlipidemia, unspecified; H40.9 Unspecified glaucoma; K59.09 Other constipation; G89.29 Other chronic pain; M54.5 Low back pain; K29.70 Gastritis, unspecified, without bleeding; K21.9 Gastro-esophageal reflux disease without esophagitis; D63.1 Anemia in chronic kidney disease; R51.9 Headache, unspecified; Z20.822 Contact with and (suspected) exposure to COVID-19; M54.2 Cervicalgia; M10.9 Gout, unspecified; Z87.891 Personal history of nicotine dependence; Z98.890 Other specified postprocedural states; Z90.79 Acquired absence of other genital organ(s); Z79.82 Long term (current) use of aspirin
CPT/HCPCS: 0240U; 36415; 36430; 70450; 71045; 80048; 80053; 81001; 82274; 82553; 82607; 82728; 82746; 83540; 83550; 83605; 83690; 83735; 83880; 84443; 84484; 85025; 85027; 85046; 85610; 85730; 86850; 86900; 86901; 87086; 93005; 93010; 93306; 96365; 96367; 96375; C9113; J0692; J2001; J2704; J3010; J3475; J3490; P9016; Q5105

== ENCOUNTER 2021-05-24 19:31 | Observation (INO) | payer MEDICARE ==
[2021-05-24 19:59] LABS: #Basophils 0.1 thou/uL (0.0-0.2); #Eosinphils 0.1 thou/uL (0.0-0.7); #Lymphocytes 1.5 thou/uL (1.20-3.40); #Monocytes 0.8 thou/uL (0.11-0.59); #Neutrophils 3.7 thou/uL (1.40-6.50); %Eosinophils 1.4 % (0.0-10.0); %Lymphocytes 24.8 % (21.0-51.0); %Monocytes 12.5 % (0.0-10.0); %Neutrophils 60.3 % (42.0-75.0); Hemoglobin 5.1 g/dL (14.0-18.0); Mean Corpuscular HGB CONC 32.6 g/dL (32.0-36.0); Mean Corpuscular Hemoglobin 31.4 pg (27.0-31.0); Mean Corpuscular Volume 96.2 fL (78.0-98.0); Mean Platelet Volume 8.8 fL (7.4-10.4); Platelet Count 146 thou/uL (130-400); RBC Distribution Width 19.5 % (11.5-14.5); Red Blood Cell (RBC) Count 1.61 mill/uL (4.70-6.10); White Blood Cell (WBC) Count 6.1 thou/uL (4.8-10.8)
[2021-05-24 20:20] LABS: ALT (SGPT) 28 U/L (8-55); AST (SGOT) 30 U/L (5-34); Albumin 3.2 g/dL (3.4-4.8); Alkaline Phosphatase 52 U/L (40-110); Anion Gap 16 mmol/L (10-20); BUN (Urea Nitrogen) 80 mg/dL (8.4-25.7); Bilirubin, Total 0.4 mg/dL (0.2-1.2); Calc. Creatinine Clearance 0 mL/min (70-130); Calcium 9.5 mg/dL (7.8-10.44); Carbon Dioxide 31 mmol/L (23-31); Chloride 100 mmol/L (98-107); Globulin 2.6 g/dL (2.4-3.5); Glucose 125 mg/dL (83-110); Potassium 4.1 mmol/L (3.5-5.1); Protein, Total 5.8 g/dL (5.8-8.1); Sodium 143 mmol/L (136-145)
[2021-05-24] MEDS ORDERED: Pantoprazole 80 MG, Admixture Fee 1 EACH in Sodium Chloride 0.9% 100 ML IVPB SCH (20:45)
[2021-05-24] MEDS ORDERED: Pantoprazole 40 MG VIAL IVP SCH (21:00)
[2021-05-24 21:13] LABS: CKMB 1.6 ng/mL (0-6.6)
[2021-05-24 21:13] LABS: SARS-CoV-2 NAA Rapid Test Not Detected (NotDetected)
[2021-05-24] MEDS ORDERED: Sterile Water 20 ML ONE (21:23)
[2021-05-24 21:46] LABS: INR-International Normal Ratio 1.2; PTT 30.9 sec (22.9-36.1); Prothrombin Time 15.2 sec (12.0-14.7)
[2021-05-24 22:04] VITALS: BMI 21.6
[2021-05-24] MEDS ORDERED: Ondansetron PF 4 MG/2 ML Vial IVP PRN (23:27)
[2021-05-24] MEDS ORDERED: Acetaminophen 325 MG TAB PO PRN (23:27)
[2021-05-25 05:57] LABS: #Basophils 0.2 thou/uL (0.0-0.2); #Lymphocytes 1.8 thou/uL (1.20-3.40); #Monocytes 0.6 thou/uL (0.11-0.59); #Neutrophils 3.1 thou/uL (1.40-6.50); %Basophils 2.6 % (0.0-1.0); %Eosinophils 0.7 % (0.0-10.0); %Lymphocytes 31.5 % (21.0-51.0); %Monocytes 10.1 % (0.0-10.0); %Neutrophils 55.1 % (42.0-75.0); Hemoglobin 6.4 g/dL (14.0-18.0); Mean Corpuscular HGB CONC 33.9 g/dL (32.0-36.0); Mean Corpuscular Hemoglobin 32.3 pg (27.0-31.0); Mean Corpuscular Volume 95.3 fL (78.0-98.0); Mean Platelet Volume 9.2 fL (7.4-10.4); Platelet Count 130 thou/uL (130-400); RBC Distribution Width 17.2 % (11.5-14.5); Red Blood Cell (RBC) Count 1.97 mill/uL (4.70-6.10); White Blood Cell (WBC) Count 5.7 thou/uL (4.8-10.8)
[2021-05-25 06:21] LABS: Anion Gap 15 mmol/L (10-20); BUN (Urea Nitrogen) 95 mg/dL (8.4-25.7); Calc. Creatinine Clearance 6 mL/min (70-130); Calcium 9.4 mg/dL (7.8-10.44); Carbon Dioxide 30 mmol/L (23-31); Chloride 102 mmol/L (98-107); Glucose 93 mg/dL (83-110); Potassium 4.4 mmol/L (3.5-5.1); Sodium 143 mmol/L (136-145)
[2021-05-25 06:26] LABS: Troponin I 0.056 ng/mL (< 0.028)
[2021-05-25 08:05] LABS: Hemoglobin 6.9 g/dL (14.0-18.0)
[2021-05-25] MEDS ORDERED: Pantoprazole 40 MG VIAL IVP SCH (09:00)
[2021-05-25] MEDS ORDERED: Heparin 1,000 UNITS/ML VIAL ONE (09:27)
[2021-05-25 11:43] LABS: Hemoglobin 8.1 g/dL (14.0-18.0)
[2021-05-25 16:52] VITALS: BP 152/92; TEMP 98.2
== END 2021-05-25 18:13 | disposition home or self-care (01) ==
LOC: ERS 19:31 → 2SW 20:54
PROVIDERS: ADMIT Internal Medicine; ATTEND Internal Medicine
DX: I13.2 Hypertensive heart and chronic kidney disease with heart failure and with stage 5 chronic kidney disease, or end stage renal disease (principal); N18.6 End stage renal disease; I50.42 Chronic combined systolic (congestive) and diastolic (congestive) heart failure; D63.1 Anemia in chronic kidney disease; K59.09 Other constipation; E78.5 Hyperlipidemia, unspecified; K21.9 Gastro-esophageal reflux disease without esophagitis; M10.9 Gout, unspecified; R77.8 Other specified abnormalities of plasma proteins; Z87.891 Personal history of nicotine dependence; Z79.82 Long term (current) use of aspirin; Z79.899 Other long term (current) drug therapy; Z99.2 Dependence on renal dialysis; Z20.822 Contact with and (suspected) exposure to COVID-19
CPT/HCPCS: 0240U; 36430 ×2; 71045; 78278; 80048; 80053; 82553; 84484 ×2; 85014; 85018; 85025 ×2; 85610; 85730; 86850; 86870; 86880; 86900; 86901; 86920; 86922; 93005; 96374; 99285; A9604; P9016 ×2; 36415; 82274; 96376; C9113; G0378; J1644; J3490

== ENCOUNTER 2021-06-16 09:44 | Outpatient (CLI) | payer MEDICARE | END 2021-06-16 09:45 | disposition home or self-care (01) | LOC: BICRAD 09:44 | PROVIDERS: ATTEND Family Medicine | DX: R05.9 Cough, unspecified (principal); J90 Pleural effusion, not elsewhere classified; R91.8 Other nonspecific abnormal finding of lung field; R09.89 Other specified symptoms and signs involving the circulatory and respiratory systems | CPT/HCPCS: 71046 ==

== ENCOUNTER 2021-06-16 12:51 | Emergency (ER) | payer MEDICARE ==
[2021-06-16 13:40] LABS: #Eosinphils 0.4 thou/uL (0.0-0.7); #Lymphocytes 1.3 thou/uL (1.20-3.40); #Monocytes 0.8 thou/uL (0.11-0.59); #Neutrophils 5.3 thou/uL (1.40-6.50); %Basophils 0.4 % (0.0-1.0); %Eosinophils 4.6 % (0.0-10.0); %Lymphocytes 16.8 % (21.0-51.0); %Monocytes 9.8 % (0.0-10.0); %Neutrophils 68.4 % (42.0-75.0); Hemoglobin 8.9 g/dL (14.0-18.0); Mean Corpuscular HGB CONC 31.7 g/dL (32.0-36.0); Mean Corpuscular Hemoglobin 32.3 pg (27.0-31.0); Mean Platelet Volume 8.6 fL (7.4-10.4); Platelet Count 180 thou/uL (130-400); RBC Distribution Width 18.5 % (11.5-14.5); Red Blood Cell (RBC) Count 2.76 mill/uL (4.70-6.10); White Blood Cell (WBC) Count 7.8 thou/uL (4.8-10.8)
[2021-06-16 14:03] LABS: ALT (SGPT) 33 U/L (8-55); AST (SGOT) 33 U/L (5-34); Albumin 3.6 g/dL (3.4-4.8); Alkaline Phosphatase 115 U/L (40-110); Anion Gap 14 mmol/L (10-20); BUN (Urea Nitrogen) 33 mg/dL (8.4-25.7); Bilirubin, Total 0.6 mg/dL (0.2-1.2); Calc. Creatinine Clearance 0 mL/min (70-130); Calcium 9.7 mg/dL (7.8-10.44); Carbon Dioxide 32 mmol/L (23-31); Chloride 101 mmol/L (98-107); Globulin 3.9 g/dL (2.4-3.5); Glucose 104 mg/dL (83-110); Potassium 4.3 mmol/L (3.5-5.1); Protein, Total 7.5 g/dL (5.8-8.1); Sodium 143 mmol/L (136-145)
[2021-06-17 10:48] LABS: SARS-CoV-2 PCR by NAA Not Detected (NotDetected)
== END 2021-06-16 16:23 | disposition home or self-care (01) ==
LOC: ERS 12:51
DX: I12.0 Hypertensive chronic kidney disease with stage 5 chronic kidney disease or end stage renal disease (principal); N18.9 Chronic kidney disease, unspecified; J06.9 Acute upper respiratory infection, unspecified; Z20.822 Contact with and (suspected) exposure to COVID-19; K21.9 Gastro-esophageal reflux disease without esophagitis; E78.5 Hyperlipidemia, unspecified; M10.9 Gout, unspecified; Z87.891 Personal history of nicotine dependence; Z79.82 Long term (current) use of aspirin; Z79.899 Other long term (current) drug therapy; R05.9 Cough, unspecified; J90 Pleural effusion, not elsewhere classified; R91.8 Other nonspecific abnormal finding of lung field; R09.89 Other specified symptoms and signs involving the circulatory and respiratory systems
CPT/HCPCS: 71045; 71046; 80053; 85025; 99283; U0003; U0005; 36415

== ENCOUNTER 2021-06-17 18:16 | Emergency (ER) | payer MEDICARE ==
[2021-06-17 20:36] LABS: #Eosinphils 0.3 thou/uL (0.0-0.7); #Lymphocytes 1.5 thou/uL (1.20-3.40); #Monocytes 0.6 thou/uL (0.11-0.59); #Neutrophils 5.6 thou/uL (1.40-6.50); %Basophils 0.2 % (0.0-1.0); %Monocytes 7.8 % (0.0-10.0); Hemoglobin 8.3 g/dL (14.0-18.0); Mean Corpuscular Hemoglobin 32.2 pg (27.0-31.0); Mean Platelet Volume 8.5 fL (7.4-10.4); Platelet Count 218 thou/uL (130-400); RBC Distribution Width 18.2 % (11.5-14.5); Red Blood Cell (RBC) Count 2.59 mill/uL (4.70-6.10); White Blood Cell (WBC) Count 8.1 thou/uL (4.8-10.8)
[2021-06-17 20:51] LABS: Phosphorus 3.6 mg/dL (2.3-4.7)
[2021-06-17 21:05] LABS: ALT (SGPT) 30 U/L (8-55); AST (SGOT) 35 U/L (5-34); Albumin 3.6 g/dL (3.4-4.8); Alkaline Phosphatase 112 U/L (40-110); Anion Gap 18 mmol/L (10-20); BUN (Urea Nitrogen) 59 mg/dL (8.4-25.7); Bilirubin, Total 0.6 mg/dL (0.2-1.2); Calc. Creatinine Clearance 0 mL/min (70-130); Calcium 9.5 mg/dL (7.8-10.44); Carbon Dioxide 29 mmol/L (23-31); Chloride 102 mmol/L (98-107); Globulin 3.4 g/dL (2.4-3.5); Glucose 103 mg/dL (83-110); Magnesium 2.3 mg/dL (1.6-2.6); Potassium 5.8 mmol/L (3.5-5.1); Sodium 143 mmol/L (136-145)
== END 2021-06-17 22:56 | disposition home or self-care (01) ==
LOC: ERS 18:16
DX: R53.1 Weakness (principal); I12.0 Hypertensive chronic kidney disease with stage 5 chronic kidney disease or end stage renal disease; N18.6 End stage renal disease; K21.9 Gastro-esophageal reflux disease without esophagitis; E78.5 Hyperlipidemia, unspecified; M10.9 Gout, unspecified; Z99.2 Dependence on renal dialysis; Z87.891 Personal history of nicotine dependence; Z79.82 Long term (current) use of aspirin; Z79.899 Other long term (current) drug therapy
CPT/HCPCS: 71045; 80053; 83735; 84100; 84484; 85025; 86850; 86900; 86901; 93005

== ENCOUNTER 2021-07-09 02:47 | Emergency (ER) | payer MEDICARE ==
[2021-07-09 04:39] LABS: Bilirubin Negative (Negative); Blood, Urine Large (Negative); Glucose, Urine (Dipstick) 100 mg/dL (Negative); Ketone, Urine Negative (Negative); Leukocyte Negative (Negative); Nitrite Negative (Negative); Protein, Urine (Dipstick) > or equal to 300 mg/dL (Neg-Trace); Urobilinogen 0.2 mg/dL (Less than 2)
[2021-07-09 04:41] LABS: RBC/HPF Greater than 50 HPF (0-3); WBC/HPF 0-3 HPF (0-3)
[2021-07-09 04:43] LABS: Clarity Opaque (Clear)
[2021-07-09] MEDS ORDERED: Lidocaine Viscous Sol 2% 15 ml UD Cup ONE (04:48)
== END 2021-07-09 06:04 | disposition home or self-care (01) ==
LOC: ERS 02:47
DX: R31.9 Hematuria, unspecified (principal); E78.5 Hyperlipidemia, unspecified; I12.0 Hypertensive chronic kidney disease with stage 5 chronic kidney disease or end stage renal disease; N18.6 End stage renal disease; M10.9 Gout, unspecified; K21.9 Gastro-esophageal reflux disease without esophagitis; Z99.2 Dependence on renal dialysis; Z87.891 Personal history of nicotine dependence; Z79.82 Long term (current) use of aspirin; Z79.899 Other long term (current) drug therapy
CPT/HCPCS: 51702; 81003; 81015; 99283

== ENCOUNTER 2021-07-20 11:52 | Emergency (ER) | payer MEDICARE ==
[2021-07-20] MEDS ORDERED: Ondansetron PF 4 MG/2 ML Vial ONE (13:44)
[2021-07-20 13:53] LABS: #Eosinphils 0.1 thou/uL (0.0-0.7); #Lymphocytes 1.5 thou/uL (1.20-3.40); #Monocytes 0.3 thou/uL (0.11-0.59); #Neutrophils 3.4 thou/uL (1.40-6.50); %Basophils 0.9 % (0.0-1.0); %Eosinophils 1.9 % (0.0-10.0); %Lymphocytes 28.4 % (21.0-51.0); %Monocytes 6.1 % (0.0-10.0); %Neutrophils 62.6 % (42.0-75.0); Hemoglobin 9.7 g/dL (14.0-18.0); Mean Corpuscular HGB CONC 30.8 g/dL (32.0-36.0); Mean Corpuscular Hemoglobin 30.8 pg (27.0-31.0); Mean Corpuscular Volume 99.7 fL (78.0-98.0); Mean Platelet Volume 8.4 fL (7.4-10.4); Platelet Count 194 thou/uL (130-400); RBC Distribution Width 19.1 % (11.5-14.5); Red Blood Cell (RBC) Count 3.14 mill/uL (4.70-6.10); White Blood Cell (WBC) Count 5.4 thou/uL (4.8-10.8)
[2021-07-20 14:15] LABS: ALT (SGPT) 19 U/L (8-55); AST (SGOT) 30 U/L (5-34); Albumin 3.8 g/dL (3.4-4.8); Alkaline Phosphatase 89 U/L (40-110); Anion Gap 19 mmol/L (10-20); BUN (Urea Nitrogen) 41 mg/dL (8.4-25.7); Bilirubin, Total 0.6 mg/dL (0.2-1.2); Calc. Creatinine Clearance 0 mL/min (70-130); Calcium 10.2 mg/dL (7.8-10.44); Carbon Dioxide 26 mmol/L (23-31); Chloride 102 mmol/L (98-107); Globulin 3.4 g/dL (2.4-3.5); Glucose 122 mg/dL (83-110); Potassium 4.4 mmol/L (3.5-5.1); Protein, Total 7.2 g/dL (5.8-8.1); Sodium 143 mmol/L (136-145)
== END 2021-07-20 16:00 | disposition home or self-care (01) ==
LOC: ERS 11:52
DX: R53.1 Weakness (principal); K21.9 Gastro-esophageal reflux disease without esophagitis; E78.5 Hyperlipidemia, unspecified; I12.0 Hypertensive chronic kidney disease with stage 5 chronic kidney disease or end stage renal disease; N18.6 End stage renal disease; Z87.891 Personal history of nicotine dependence; Z79.82 Long term (current) use of aspirin; Z79.899 Other long term (current) drug therapy
CPT/HCPCS: 36415; 71045; 80053; 84484; 85025; 93005; 96374; J2405

== ENCOUNTER 2022-05-25 07:41 | Emergency (ER) | payer MEDICARE ==
[2022-05-25] MEDS ORDERED: hydrALAZINE 20 MG/ML VIAL ONE (08:08)
[2022-05-25 09:35] LABS: ALT (SGPT) 17 U/L (8-55); AST (SGOT) 22 U/L (5-34); Albumin 3.8 g/dL (3.4-4.8); Alkaline Phosphatase 130 U/L (40-110); Anion Gap 19 mmol/L (10-20); BUN (Urea Nitrogen) 49 mg/dL (8.4-25.7); Bilirubin, Total 0.6 mg/dL (0.2-1.2); Calc. Creatinine Clearance 0 mL/min (70-130); Calcium 9.4 mg/dL (7.8-10.44); Carbon Dioxide 27 mmol/L (23-31); Chloride 98 mmol/L (98-107); Estimated GFR 5; Globulin 3.5 g/dL (2.4-3.5); Glucose 82 mg/dL (83-110); Protein, Total 7.3 g/dL (5.8-8.1); Sodium 139 mmol/L (136-145)
[2022-05-25 09:48] LABS: CKMB 2.2 ng/mL (0-6.6)
[2022-05-25 10:01] LABS: Eosinophils 2 % (0-10); Hemoglobin 14.4 g/dL (14.0-18.0); Lymphocytes 45 % (21-51); MDiff Complete? YES; Mean Corpuscular HGB CONC 31.3 g/dL (32.0-36.0); Mean Corpuscular Hemoglobin 31.8 pg (27.0-31.0); Mean Platelet Volume 9.6 fL (7.4-10.4); Monocytes 4 % (0-10); Neutrophil 49 % (42-75); Platelet Count 146 10x3/uL (130-400); RBC Distribution Width 16.5 % (11.5-14.5); RBC Morphology Normal; Red Blood Cell (RBC) Count 4.53 mill/uL (4.70-6.10); White Blood Cell (WBC) Count 4.1 10x3/uL (4.8-10.8)
== END 2022-05-25 11:30 | disposition home or self-care (01) ==
LOC: ERS 07:41
DX: R53.81 Other malaise (principal); I12.0 Hypertensive chronic kidney disease with stage 5 chronic kidney disease or end stage renal disease; N18.6 End stage renal disease; R00.1 Bradycardia, unspecified; Z87.891 Personal history of nicotine dependence; Z99.2 Dependence on renal dialysis; Z79.899 Other long term (current) drug therapy
CPT/HCPCS: 36415; 71045; 80053; 82553; 84484; 85025; 93005; 96374; J0360

== ENCOUNTER 2022-06-03 09:06 | Emergency (ER) | payer MEDICARE | END 2022-06-03 11:17 | disposition home or self-care (01) | LOC: ERS 09:06 | DX: I44.0 Atrioventricular block, first degree (principal); R00.1 Bradycardia, unspecified; E78.5 Hyperlipidemia, unspecified; I12.0 Hypertensive chronic kidney disease with stage 5 chronic kidney disease or end stage renal disease; N18.6 End stage renal disease; Z87.891 Personal history of nicotine dependence | CPT/HCPCS: 93005 ==

== ENCOUNTER 2022-09-09 12:03 | Emergency (ER) | payer MEDICARE | END 2022-09-09 13:17 | disposition home or self-care (01) | LOC: ERS 12:03 | DX: L29.9 Pruritus, unspecified (principal); K21.9 Gastro-esophageal reflux disease without esophagitis; E78.5 Hyperlipidemia, unspecified; I12.0 Hypertensive chronic kidney disease with stage 5 chronic kidney disease or end stage renal disease; N18.6 End stage renal disease; Z87.891 Personal history of nicotine dependence | CPT/HCPCS: 99283 ==

== ENCOUNTER 2022-11-04 09:19 | Emergency (ER) | payer MEDICARE ==
[2022-11-04 10:12] LABS: #Eosinphils 0.1 thou/uL (0.0-0.7); #Monocytes 0.2 thou/uL (0.11-0.59); #Neutrophils 1.8 thou/uL (1.40-6.50); %Basophils 0.6 % (0.0-1.0); %Eosinophils 2.8 % (0.0-10.0); %Monocytes 6.8 % (0.0-10.0); %Neutrophils 54.5 % (42.0-75.0); Hemoglobin 12.7 g/dL (14.0-18.0); Mean Corpuscular HGB CONC 30.8 g/dL (32.0-36.0); Mean Corpuscular Hemoglobin 29.9 pg (27.0-31.0); Mean Corpuscular Volume 96.9 fl (78.0-98.0); Mean Platelet Volume 10.5 fL (7.4-10.4); Platelet Count 141 10x3/uL (130-400); RBC Distribution Width 16.8 % (11.5-14.5); Red Blood Cell (RBC) Count 4.25 mill/uL (4.70-6.10); White Blood Cell (WBC) Count 3.2 10x3/uL (4.8-10.8)
[2022-11-04] MEDS ORDERED: Iopamidol-370 76% 500 ML MDV (1 ML CHARGE) ONE (10:25)
[2022-11-04] MEDS ORDERED: HYDROcodone/Acetaminophen 5/325 mg Tablet ONE (10:27)
[2022-11-04 10:34] LABS: ALT (SGPT) 18 U/L (8-55); AST (SGOT) 28 U/L (5-34); Albumin 4.4 g/dL (3.4-4.8); Alkaline Phosphatase 81 U/L (40-110); Anion Gap 20 mmol/L (10-20); BUN (Urea Nitrogen) 20 mg/dL (8.4-25.7); Bilirubin, Total 0.4 mg/dL (0.2-1.2); Calc. Creatinine Clearance 0 mL/min (70-130); Calcium 9.8 mg/dL (7.8-10.44); Carbon Dioxide 26 mmol/L (23-31); Chloride 96 mmol/L (98-107); Estimated GFR 8; Globulin 4.2 g/dL (2.4-3.5); Glucose 76 mg/dL (83-110); Lipase 23 U/L (8-78); Magnesium 2.4 mg/dL (1.6-2.6); Potassium 4.7 mmol/L (3.5-5.1); Protein, Total 8.6 g/dL (5.8-8.1); Sodium 137 mmol/L (136-145)
[2022-11-04] MEDS ORDERED: hydrALAZINE 20 MG/ML VIAL ONE (12:50)
[2022-11-04] MEDS ORDERED: Amlodipine 5 MG TAB ONE (12:50)
== END 2022-11-04 15:49 | disposition short-term general hospital (02) ==
LOC: ERS 09:19
DX: R00.1 Bradycardia, unspecified (principal); I12.0 Hypertensive chronic kidney disease with stage 5 chronic kidney disease or end stage renal disease; N18.6 End stage renal disease; E78.5 Hyperlipidemia, unspecified; Z87.891 Personal history of nicotine dependence; Z99.2 Dependence on renal dialysis
CPT/HCPCS: 36415; 71045; 71275; 74174; 80053; 82553; 83690; 83735; 84484; 85025; 93005; J0360

== ENCOUNTER 2023-02-24 12:34 | Emergency (ER) | payer MEDICARE ==
[2023-02-24 14:05] LABS: #Eosinphils 0.1 thou/uL (0.0-0.7); #Monocytes 0.7 thou/uL (0.11-0.59); #Neutrophils 3.4 thou/uL (1.40-6.50); %Basophils 0.4 % (0.0-1.0); %Eosinophils 1.6 % (0.0-10.0); %Lymphocytes 26.8 % (21.0-51.0); %Monocytes 12.3 % (0.0-10.0); %Neutrophils 58.7 % (42.0-75.0); Hematocrit 32.8 % (42.0-52.0); Hemoglobin 10.6 g/dL (14.0-18.0); Mean Corpuscular HGB CONC 32.3 g/dL (32.0-36.0); Mean Corpuscular Volume 95.9 fl (78.0-98.0); Platelet Count 168 10x3/uL (130-400); RBC Distribution Width 15.7 % (11.5-14.5); Red Blood Cell (RBC) Count 3.42 mill/uL (4.70-6.10); White Blood Cell (WBC) Count 5.7 10x3/uL (4.8-10.8)
[2023-02-24 14:28] LABS: ALT (SGPT) 8 U/L (8-55); AST (SGOT) 12 U/L (5-34); Albumin 3.9 g/dL (3.4-4.8); Alkaline Phosphatase 102 U/L (40-110); Anion Gap 18 mmol/L (10-20); BUN (Urea Nitrogen) 31 mg/dL (8.4-25.7); Bilirubin, Total 0.5 mg/dL (0.2-1.2); Calc. Creatinine Clearance 0 mL/min (70-130); Calcium 9.4 mg/dL (7.8-10.44); Carbon Dioxide 28 mmol/L (23-31); Chloride 99 mmol/L (98-107); Estimated GFR 8; Globulin 3.7 g/dL (2.4-3.5); Glucose 108 mg/dL (83-110); Potassium 4.4 mmol/L (3.5-5.1); Protein, Total 7.6 g/dL (5.8-8.1); Sodium 141 mmol/L (136-145)
== END 2023-02-24 14:58 | disposition home or self-care (01) ==
LOC: ERS 12:34
DX: R53.1 Weakness (principal); G89.29 Other chronic pain; K21.9 Gastro-esophageal reflux disease without esophagitis; E78.5 Hyperlipidemia, unspecified; I12.0 Hypertensive chronic kidney disease with stage 5 chronic kidney disease or end stage renal disease; N18.6 End stage renal disease; Z99.2 Dependence on renal dialysis; Z87.891 Personal history of nicotine dependence; Z79.899 Other long term (current) drug therapy
CPT/HCPCS: 36415; 80053; 83880; 85025; 99284

== ENCOUNTER 2023-08-19 08:05 | Outpatient (CLI) | payer MEDICARE | END 2023-08-19 08:06 | disposition home or self-care (01) | LOC: CT 08:05 | PROVIDERS: ATTEND Thoracic Surgery (Cardiothoracic Vascular Surgery) | DX: I73.9 Peripheral vascular disease, unspecified (principal); I25.10 Atherosclerotic heart disease of native coronary artery without angina pectoris; I70.0 Atherosclerosis of aorta; I74.5 Embolism and thrombosis of iliac artery; I51.7 Cardiomegaly; K31.89 Other diseases of stomach and duodenum | CPT/HCPCS: 71275; 74174 ==

== ENCOUNTER 2023-11-13 13:01 | Inpatient (IN) | payer MEDICARE ==
[2023-11-13] MEDS ORDERED: Atropine Sulfate 1 mg/10 ml Syringe ONE (13:35)
[2023-11-13 13:46] LABS: #Basophils Less than 0.03 10x3/uL (0.0-0.2); %Basophils 0.3 % (0.0-1.0); %Eosinophils 2.1 % (0.0-10.0); %Lymphocytes 37.5 % (21.0-51.0); %Monocytes 13.1 % (0.0-10.0); %Neutrophils 46.1 % (42.0-75.0); Hematocrit 16.7 % (42.0-52.0); Hemoglobin 5.7 g/dL (14.0-18.0); Mean Corpuscular HGB CONC 34.1 g/dL (32.0-36.0); Mean Corpuscular Hemoglobin 31.7 pg (27.0-31.0); Mean Corpuscular Volume 92.8 fL (78.0-98.0); Mean Platelet Volume 11.1 fL (7.4-10.4); Platelet Count 131 10x3/uL (130-400); RBC Distribution Width 15.3 % (11.5-14.5)
[2023-11-13 13:52] LABS: ALT (SGPT) 10 U/L (8-55); AST (SGOT) 14 U/L (5-34); Albumin 2.7 g/dL (3.4-4.8); Alkaline Phosphatase 39 U/L (40-110); Anion Gap 15 mmol/L (10-20); BUN (Urea Nitrogen) 57 mg/dL (8.4-25.7); Bilirubin, Total 0.4 mg/dL (0.2-1.2); Calc. Creatinine Clearance 0 mL/min (70-130); Carbon Dioxide 30 mmol/L (23-31); Chloride 103 mmol/L (98-107); Estimated GFR 6; Globulin 2.6 g/dL (2.4-3.5); Glucose 92 mg/dL (83-110); Lipase 31 U/L (8-78); Potassium 4.7 mmol/L (3.5-5.1); Protein, Total 5.3 g/dL (5.8-8.1); Sodium 143 mmol/L (136-145)
[2023-11-13 13:57] LABS: Troponin I 0.023 ng/mL (< 0.028)
[2023-11-13] MEDS ORDERED: Ondansetron ODT 4 MG TAB PO PRN (16:11)
[2023-11-13] MEDS ORDERED: Senokot S 8.6-50 MG TAB PO PRN (16:11)
[2023-11-13] MEDS ORDERED: Ondansetron PF 4 MG/2 ML Vial IVP PRN (16:11)
[2023-11-13] MEDS ORDERED: Bisacodyl 5 MG TAB PO PRN (16:11)
[2023-11-13] MEDS ORDERED: Acetaminophen 650 MG Suppository PR PRN (16:11)
[2023-11-13] MEDS ORDERED: Acetaminophen 325 MG TAB PO PRN (16:11)
[2023-11-13 16:47] VITALS: BMI 21.9
[2023-11-13] MEDS ORDERED: hydrALAZINE 20 MG/ML VIAL SLOW IVP PRN (17:14)
[2023-11-13] MEDS: Pantoprazole 40 MG VIAL IVP SCH ×2 (17:38→22:19)
[2023-11-13] MEDS: Sevelamer 2.4 GM PACKET PO SCH (17:39)
[2023-11-13] MEDS: Brimonidine Tartrate 0.2% Ophth Soln 5 ml Bottle EA EYE SCH (20:56)
[2023-11-13] MEDS: Timolol 0.5% Ophth Soln 5 ml Bottle EA EYE SCH (21:05)
[2023-11-13] MEDS: Latanoprost 0.005% Ophth Soln 2.5 ml Bottle EA EYE SCH (21:27)
[2023-11-13 21:51] LABS: Troponin I 0.035 ng/mL (< 0.028)
[2023-11-13 21:53] LABS: Iron 101 ug/dL (65-175); Iron Binding Capacity, Total 173 mcg/dL (261-462)
[2023-11-14 00:20] LABS: Troponin I 0.027 ng/mL (< 0.028)
[2023-11-14 05:13] LABS: #Basophils Less than 0.03 10x3/uL (0.0-0.2); %Basophils 0.2 % (0.0-1.0); %Eosinophils 1.6 % (0.0-10.0); %Lymphocytes 31.3 % (21.0-51.0); %Monocytes 11.7 % (0.0-10.0); %Neutrophils 54.3 % (42.0-75.0); Hematocrit 23.9 % (42.0-52.0); Hemoglobin 7.9 g/dL (14.0-18.0); Mean Corpuscular HGB CONC 33.1 g/dL (32.0-36.0); Mean Corpuscular Hemoglobin 30.3 pg (27.0-31.0); Mean Corpuscular Volume 91.6 fL (78.0-98.0); Mean Platelet Volume 10.5 fL (7.4-10.4); Platelet Count 134 10x3/uL (130-400); RBC Distribution Width 16.8 % (11.5-14.5); Red Blood Cell (RBC) Count 2.61 mill/uL (4.70-6.10)
[2023-11-14 05:52] LABS: ALT (SGPT) 11 U/L (8-55); AST (SGOT) 16 U/L (5-34); Albumin 2.9 g/dL (3.4-4.8); Alkaline Phosphatase 39 U/L (40-110); Anion Gap 15 mmol/L (10-20); BUN (Urea Nitrogen) 66 mg/dL (8.4-25.7); Bilirubin, Total 0.7 mg/dL (0.2-1.2); Calc. Creatinine Clearance 5 mL/min (70-130); Calcium 8.7 mg/dL (7.8-10.44); Carbon Dioxide 27 mmol/L (23-31); Chloride 104 mmol/L (98-107); Estimated GFR 5; Globulin 2.7 g/dL (2.4-3.5); Glucose 77 mg/dL (83-110); Potassium 5.6 mmol/L (3.5-5.1); Protein, Total 5.6 g/dL (5.8-8.1); Sodium 140 mmol/L (136-145)
[2023-11-14] MEDS: Folic Acid/Vit B Comp W-C PO SCH (09:37)
[2023-11-14] MEDS: Atorvastatin Calcium 40 MG TAB PO SCH (09:37)
[2023-11-14] MEDS: EPOETIN ALFA-EPBX (ESRD) 10,000 UNITS/ML VIAL SC SCH (09:45)
[2023-11-14] MEDS: Amlodipine 10 MG TAB PO SCH (10:11)
[2023-11-14] MEDS: Calcium Carbonate 500 MG ChewTAB PO PRN (18:47)
[2023-11-15 05:45] LABS: HBSAB Concentration 99.18 mIU/mL; HBsAg Index 0.27 S/CO (0-0.99); Hep B Core Total Ab NONREACTIVE (NonReactive); Hep B Core Total Index 0.08 S/CO (0-0.79); Hep B Surf AB REACTIVE (NonReactive); Hep B Surf Ag NONREACTIVE S/CO (NonReactive); Hep C IgG Ab NONREACTIVE S/CO (NonReactive); Hep C Index 0.13 S/CO (0-0.79)
[2023-11-15 08:09] LABS: #Basophils Less than 0.03 10x3/uL (0.0-0.2); %Basophils 0.1 % (0.0-1.0); %Eosinophils 0.5 % (0.0-10.0); %Lymphocytes 14.2 % (21.0-51.0); %Monocytes 12.1 % (0.0-10.0); %Neutrophils 72.4 % (42.0-75.0); Hematocrit 26.1 % (42.0-52.0); Hemoglobin 8.7 g/dL (14.0-18.0); Mean Corpuscular HGB CONC 33.3 g/dL (32.0-36.0); Mean Corpuscular Hemoglobin 31.6 pg (27.0-31.0); Mean Corpuscular Volume 94.9 fL (78.0-98.0); Mean Platelet Volume 11.1 fL (7.4-10.4); Platelet Count 144 10x3/uL (130-400); RBC Distribution Width 16.3 % (11.5-14.5); Red Blood Cell (RBC) Count 2.75 mill/uL (4.70-6.10)
[2023-11-15 08:34] LABS: Anion Gap 20 mmol/L (10-20); BUN (Urea Nitrogen) 82 mg/dL (8.4-25.7); Calc. Creatinine Clearance 4 mL/min (70-130); Carbon Dioxide 23 mmol/L (23-31); Chloride 103 mmol/L (98-107); Estimated GFR 4; Glucose 82 mg/dL (83-110); Potassium 5.7 mmol/L (3.5-5.1); Sodium 140 mmol/L (136-145)
[2023-11-15] MEDS: Pantoprazole DR 40 MG TAB PO SCH (15:03)
[2023-11-16 04:40] LABS: #Basophils Less than 0.03 10x3/uL (0.0-0.2); %Basophils 0.1 % (0.0-1.0); %Eosinophils 0.5 % (0.0-10.0); %Lymphocytes 17.1 % (21.0-51.0); %Monocytes 14.1 % (0.0-10.0); %Neutrophils 67.3 % (42.0-75.0); Hematocrit 28.2 % (42.0-52.0); Hemoglobin 9.4 g/dL (14.0-18.0); Mean Corpuscular HGB CONC 33.3 g/dL (32.0-36.0); Mean Corpuscular Hemoglobin 30.9 pg (27.0-31.0); Mean Corpuscular Volume 92.8 fL (78.0-98.0); Mean Platelet Volume 10.9 fL (7.4-10.4); Platelet Count 146 10x3/uL (130-400); RBC Distribution Width 15.8 % (11.5-14.5); Red Blood Cell (RBC) Count 3.04 mill/uL (4.70-6.10)
[2023-11-16 05:04] LABS: Anion Gap 17 mmol/L (10-20); BUN (Urea Nitrogen) 35 mg/dL (8.4-25.7); Calc. Creatinine Clearance 7 mL/min (70-130); Calcium 9.1 mg/dL (7.8-10.44); Carbon Dioxide 27 mmol/L (23-31); Chloride 100 mmol/L (98-107); Estimated GFR 6; Glucose 87 mg/dL (83-110); Potassium 4.6 mmol/L (3.5-5.1); Sodium 139 mmol/L (136-145)
[2023-11-16] MEDS: Gabapentin 100 MG CAP PO PRN (23:00)
[2023-11-16] MEDS: HYDROcodone/Acetaminophen 5/325 mg Tablet PO PRN (23:00)
[2023-11-17 04:50] LABS: #Basophils Less than 0.03 10x3/uL (0.0-0.2); %Basophils 0.1 % (0.0-1.0); %Eosinophils 1.5 % (0.0-10.0); %Lymphocytes 19.6 % (21.0-51.0); %Monocytes 14.9 % (0.0-10.0); Hematocrit 22.9 % (42.0-52.0); Hemoglobin 7.8 g/dL (14.0-18.0); Mean Corpuscular HGB CONC 34.1 g/dL (32.0-36.0); Mean Corpuscular Hemoglobin 31.2 pg (27.0-31.0); Mean Corpuscular Volume 91.6 fL (78.0-98.0); Mean Platelet Volume 11.5 fL (7.4-10.4); Platelet Count 129 10x3/uL (130-400); RBC Distribution Width 15.4 % (11.5-14.5)
[2023-11-17 05:24] LABS: Anion Gap 15 mmol/L (10-20); BUN (Urea Nitrogen) 58 mg/dL (8.4-25.7); Calc. Creatinine Clearance 5 mL/min (70-130); Calcium 8.3 mg/dL (7.8-10.44); Carbon Dioxide 28 mmol/L (23-31); Chloride 97 mmol/L (98-107); Estimated GFR 4; Glucose 92 mg/dL (83-110); Potassium 4.4 mmol/L (3.5-5.1); Sodium 136 mmol/L (136-145)
[2023-11-17 14:41] VITALS: BP 160/64; TEMP 98.4
== END 2023-11-17 14:41 | disposition home or self-care (01) | DRG 682 ==
LOC: ERS 13:01 → 2NO 15:08
PROVIDERS: ADMIT Internal Medicine; ATTEND Internal Medicine
PROC: 30233N1 Transfusion of Nonautologous Red Blood Cells into Peripheral Vein, Percutaneous Approach (ICD-10-PCS; principal; 2023-11-13)
DX: I12.0 Hypertensive chronic kidney disease with stage 5 chronic kidney disease or end stage renal disease (principal); N18.6 End stage renal disease; R00.1 Bradycardia, unspecified; I25.10 Atherosclerotic heart disease of native coronary artery without angina pectoris; I48.0 Paroxysmal atrial fibrillation; D63.1 Anemia in chronic kidney disease; E78.5 Hyperlipidemia, unspecified; H40.9 Unspecified glaucoma; K29.00 Acute gastritis without bleeding; E87.5 Hyperkalemia; I73.9 Peripheral vascular disease, unspecified; Z79.82 Long term (current) use of aspirin; Z79.899 Other long term (current) drug therapy; Z98.890 Other specified postprocedural states; Z90.79 Acquired absence of other genital organ(s); Z99.2 Dependence on renal dialysis
CPT/HCPCS: 36415; 36416; 36430; 71045; 80048; 80053; 82728; 83010; 83540; 83550; 83605; 83690; 83880; 84443; 84484; 85025; 85046; 86704; 86706; 86803; 86850; 86870; 86900; 86901; 86905; 86922; 87340; 93005; 93306; 96360; C9113; J0461; P9016; Q5105

== ENCOUNTER 2023-12-02 15:03 | Emergency (ER) | payer MEDICARE ==
[2023-12-02] MEDS ORDERED: HYDROcodone/Acetaminophen 10/325 mg Tablet ONE (16:03)
== END 2023-12-02 17:00 | disposition home or self-care (01) ==
LOC: ERS 15:03
DX: S70.02XA Contusion of left hip, initial encounter (principal); I12.0 Hypertensive chronic kidney disease with stage 5 chronic kidney disease or end stage renal disease; N18.6 End stage renal disease; Z87.891 Personal history of nicotine dependence; W06.XXXA Fall from bed, initial encounter
CPT/HCPCS: 72170

== ENCOUNTER 2023-12-05 04:32 | Inpatient (IN) | payer MEDICARE ==
[2023-12-05 05:52] LABS: #Basophils Less than 0.03 10x3/uL (0.0-0.2); %Basophils 0.2 % (0.0-1.0); %Eosinophils 2.1 % (0.0-10.0); %Monocytes 12.5 % (0.0-10.0); Hematocrit 17.8 % (42.0-52.0); Hemoglobin 5.8 g/dL (14.0-18.0); Mean Corpuscular HGB CONC 32.6 g/dL (32.0-36.0); Mean Corpuscular Hemoglobin 31.5 pg (27.0-31.0); Mean Corpuscular Volume 96.7 fL (78.0-98.0); Mean Platelet Volume 10.3 fL (7.4-10.4); Platelet Count 184 10x3/uL (130-400); RBC Distribution Width 16.7 % (11.5-14.5); Red Blood Cell (RBC) Count 1.84 mill/uL (4.70-6.10)
[2023-12-05 06:14] LABS: ALT (SGPT) Less than 5 U/L (8-55); AST (SGOT) 11 U/L (5-34); Albumin 2.9 g/dL (3.4-4.8); Alkaline Phosphatase 47 U/L (40-110); Anion Gap 22 mmol/L (10-20); BUN (Urea Nitrogen) 101 mg/dL (8.4-25.7); Bilirubin, Total 0.4 mg/dL (0.2-1.2); Calc. Creatinine Clearance 0 mL/min (70-130); Calcium 8.7 mg/dL (7.8-10.44); Carbon Dioxide 24 mmol/L (23-31); Chloride 103 mmol/L (98-107); Estimated GFR 3; Globulin 3.4 g/dL (2.4-3.5); Glucose 92 mg/dL (83-110); Potassium 5.2 mmol/L (3.5-5.1); Protein, Total 6.3 g/dL (5.8-8.1); Sodium 144 mmol/L (136-145)
[2023-12-05] MEDS ORDERED: Epoetin (ESRD) 20,000 UNITS/ML MDV SC SCH (08:00)
[2023-12-05] MEDS ORDERED: Ondansetron ODT 4 MG TAB PO PRN (08:07)
[2023-12-05] MEDS ORDERED: HYDROcodone/Acetaminophen 5/325 mg Tablet PO PRN (08:07)
[2023-12-05] MEDS ORDERED: Ondansetron PF 4 MG/2 ML Vial IVP PRN (08:07)
[2023-12-05] MEDS ORDERED: Acetaminophen 650 MG Suppository PR PRN (08:07)
[2023-12-05] MEDS ORDERED: Senokot S 8.6-50 MG TAB PO PRN (08:07)
[2023-12-05] MEDS ORDERED: Acetaminophen 500 MG TAB ONE (08:17)
[2023-12-05] MEDS ORDERED: Cyclobenzaprine 10 MG TAB PO PRN (08:22)
[2023-12-05] MEDS ORDERED: Enoxaparin 30 MG (0.3 mL) SYRINGE SC SCH (09:00)
[2023-12-05 09:11] LABS: Iron 51 ug/dL (65-175); Iron Binding Capacity, Total 184 mcg/dL (261-462)
[2023-12-05] MEDS ORDERED: Morphine 4 MG/ML VIAL ONE (09:24)
[2023-12-05] MEDS ORDERED: IRON SUCROSE COMPLEX 100 MG/5 ML SLOW IVP SCH (09:30)
[2023-12-05] MEDS: Atorvastatin Calcium 40 MG TAB PO SCH (12:28)
[2023-12-05] MEDS: Gabapentin 100 MG CAP PO SCH ×2 (12:28→21:28)
[2023-12-05] MEDS: Brimonidine Tartrate 0.2% Ophth Soln 5 ml Bottle EA EYE SCH (12:28)
[2023-12-05] MEDS: Pantoprazole DR 40 MG TAB PO SCH (12:29)
[2023-12-05] MEDS: Timolol 0.5% Ophth Soln 5 ml Bottle EA EYE SCH (12:29)
[2023-12-05 12:44] VITALS: BMI 21.6
[2023-12-05] MEDS: Sodium Ferric Gluconate 125 MG in Sodium Chloride 0.9% 100 ML IVPB SCH (14:07)
[2023-12-05 14:21] LABS: #Basophils Less than 0.03 10x3/uL (0.0-0.2); %Basophils 0.2 % (0.0-1.0); %Eosinophils 1.6 % (0.0-10.0); %Lymphocytes 28.4 % (21.0-51.0); %Monocytes 12.8 % (0.0-10.0); %Neutrophils 56.7 % (42.0-75.0); Hematocrit 24.9 % (42.0-52.0); Mean Corpuscular HGB CONC 32.1 g/dL (32.0-36.0); Mean Corpuscular Hemoglobin 31.1 pg (27.0-31.0); Mean Corpuscular Volume 96.9 fL (78.0-98.0); Platelet Count 202 10x3/uL (130-400); RBC Distribution Width 17.3 % (11.5-14.5); Red Blood Cell (RBC) Count 2.57 mill/uL (4.70-6.10)
[2023-12-05 14:36] LABS: Phosphorus 6.1 mg/dL (2.3-4.7)
[2023-12-05 14:38] LABS: Anion Gap 24 mmol/L (10-20); BUN (Urea Nitrogen) 104 mg/dL (8.4-25.7); Calc. Creatinine Clearance 3 mL/min (70-130); Calcium 9.2 mg/dL (7.8-10.44); Carbon Dioxide 24 mmol/L (23-31); Chloride 102 mmol/L (98-107); Estimated GFR 3; Glucose 112 mg/dL (83-110); Magnesium 2.5 mg/dL (1.6-2.6); Potassium 5.5 mmol/L (3.5-5.1); Sodium 144 mmol/L (136-145)
[2023-12-05] MEDS: EPOETIN ALFA-EPBX (ESRD) 10,000 UNITS/ML VIAL SC SCH (16:38)
[2023-12-05] MEDS: HYDROcodone/Acetaminophen 5/325 mg Tablet PO PRN (18:01)
[2023-12-05 19:43] LABS: Hematocrit 22.7 % (42.0-52.0); Hemoglobin 7.8 g/dL (14.0-18.0)
[2023-12-05] MEDS: Acetaminophen 325 MG TAB PO PRN (20:29)
[2023-12-05] MEDS ORDERED: Morphine 2 MG/ML VIAL SLOW IVP PRN (20:47)
[2023-12-05] MEDS: Cyclobenzaprine 10 MG TAB PO SCH (21:28)
[2023-12-05] MEDS: Latanoprost 0.005% Ophth Soln 2.5 ml Bottle EA EYE SCH (21:29)
[2023-12-05] MEDS: Morphine 4 MG/ML VIAL SLOW IVP PRN (21:29)
[2023-12-06 03:19] LABS: Hemoglobin 7.6 g/dL (14.0-18.0)
[2023-12-06 03:35] LABS: Anion Gap 13 mmol/L (10-20); BUN (Urea Nitrogen) 38 mg/dL (8.4-25.7); Calc. Creatinine Clearance 6 mL/min (70-130); Calcium 8.4 mg/dL (7.8-10.44); Carbon Dioxide 30 mmol/L (23-31); Chloride 98 mmol/L (98-107); Estimated GFR 6; Glucose 75 mg/dL (83-110); Potassium 4.4 mmol/L (3.5-5.1); Sodium 137 mmol/L (136-145)
[2023-12-06 08:12] LABS: Hematocrit 24.6 % (42.0-52.0); Hemoglobin 8.1 g/dL (14.0-18.0)
[2023-12-06 12:01] VITALS: BMI 21.6
[2023-12-06] MEDS: GoLYTELY 4,000 ml Bottle PO SCH (18:30)
[2023-12-07 04:43] LABS: #Basophils Less than 0.03 10x3/uL (0.0-0.2); %Basophils 0.2 % (0.0-1.0); %Eosinophils 1.5 % (0.0-10.0); %Lymphocytes 25.6 % (21.0-51.0); %Monocytes 12.7 % (0.0-10.0); %Neutrophils 59.6 % (42.0-75.0); Hematocrit 24.1 % (42.0-52.0); Mean Corpuscular HGB CONC 33.2 g/dL (32.0-36.0); Mean Corpuscular Hemoglobin 31.4 pg (27.0-31.0); Mean Corpuscular Volume 94.5 fL (78.0-98.0); Mean Platelet Volume 9.8 fL (7.4-10.4); Platelet Count 159 10x3/uL (130-400); Red Blood Cell (RBC) Count 2.55 mill/uL (4.70-6.10)
[2023-12-07 04:59] LABS: Anion Gap 16 mmol/L (10-20); BUN (Urea Nitrogen) 17 mg/dL (8.4-25.7); Calc. Creatinine Clearance 10 mL/min (70-130); Calcium 8.1 mg/dL (7.8-10.44); Carbon Dioxide 28 mmol/L (23-31); Chloride 94 mmol/L (98-107); Estimated GFR 10; Glucose 73 mg/dL (83-110); Potassium 4.4 mmol/L (3.5-5.1); Sodium 134 mmol/L (136-145)
[2023-12-07] MEDS ORDERED: Lidocaine 1% PF 5 ML VIAL ONE (07:23)
[2023-12-07] MEDS ORDERED: PROPOFOL 40 ML ONE (07:24)
[2023-12-08 05:00] LABS: #Basophils Less than 0.03 10x3/uL (0.0-0.2); %Basophils 0.2 % (0.0-1.0); %Eosinophils 1.3 % (0.0-10.0); %Lymphocytes 22.3 % (21.0-51.0); %Monocytes 15.6 % (0.0-10.0); %Neutrophils 60.3 % (42.0-75.0); Hematocrit 23.4 % (42.0-52.0); Hemoglobin 7.9 g/dL (14.0-18.0); Mean Corpuscular HGB CONC 33.8 g/dL (32.0-36.0); Mean Corpuscular Hemoglobin 31.5 pg (27.0-31.0); Mean Corpuscular Volume 93.2 fL (78.0-98.0); Mean Platelet Volume 10.2 fL (7.4-10.4); Platelet Count 169 10x3/uL (130-400); RBC Distribution Width 15.5 % (11.5-14.5); Red Blood Cell (RBC) Count 2.51 mill/uL (4.70-6.10)
[2023-12-08 05:23] LABS: Anion Gap 21 mmol/L (10-20); BUN (Urea Nitrogen) 27 mg/dL (8.4-25.7); Calc. Creatinine Clearance 6 mL/min (70-130); Carbon Dioxide 26 mmol/L (23-31); Chloride 97 mmol/L (98-107); Estimated GFR 6; Glucose 78 mg/dL (83-110); Sodium 139 mmol/L (136-145)
[2023-12-08 11:49] VITALS: TEMP 97.9
[2023-12-08 12:00] VITALS: BP 116/56
== END 2023-12-08 19:20 | disposition home or self-care (01) | DRG 377 ==
LOC: SUATTDRO 04:32 → ERS 04:32 → 2NO 09:45 → OBSVTOIN 12-06 08:53
PROVIDERS: ADMIT Family Medicine; ATTEND Internal Medicine
PROC: 30233N1 Transfusion of Nonautologous Red Blood Cells into Peripheral Vein, Percutaneous Approach (ICD-10-PCS; 2023-12-05)
PROC: 0W3P8ZZ Control Bleeding in Gastrointestinal Tract, Via Natural or Artificial Opening Endoscopic (ICD-10-PCS; principal; 2023-12-07)
PROC: 0DBN8ZZ Excision of Sigmoid Colon, Via Natural or Artificial Opening Endoscopic (ICD-10-PCS; 2023-12-07)
DX: K31.811 Angiodysplasia of stomach and duodenum with bleeding (principal); N18.6 End stage renal disease; D62 Acute posthemorrhagic anemia; R64 Cachexia; I12.0 Hypertensive chronic kidney disease with stage 5 chronic kidney disease or end stage renal disease; M16.12 Unilateral primary osteoarthritis, left hip; I70.213 Atherosclerosis of native arteries of extremities with intermittent claudication, bilateral legs; E78.5 Hyperlipidemia, unspecified; K21.9 Gastro-esophageal reflux disease without esophagitis; M10.9 Gout, unspecified; K57.30 Diverticulosis of large intestine without perforation or abscess without bleeding; K64.8 Other hemorrhoids; Z79.899 Other long term (current) drug therapy; Z87.891 Personal history of nicotine dependence; Z99.2 Dependence on renal dialysis; M48.07 Spinal stenosis, lumbosacral region; Z68.21 Body mass index [BMI] 21.0-21.9, adult
CPT/HCPCS: 36415; 36416; 36430; 72148; 72192; 80048; 80053; 82274; 82728; 83540; 83550; 83735; 84100; 85014; 85018; 85025; 85046; 86850; 86900; 86901; 86922; 88305; 93005; 93923; 96374; J2270; J2704; J2916; J3490; P9016

== ENCOUNTER 2023-12-10 13:07 | Inpatient (IN) | payer MEDICARE ==
[2023-12-10 13:55] LABS: #Basophils Less than 0.03 10x3/uL (0.0-0.2); %Basophils 0.2 % (0.0-1.0); %Eosinophils 1.1 % (0.0-10.0); %Lymphocytes 20.1 % (21.0-51.0); %Monocytes 11.3 % (0.0-10.0); %Neutrophils 66.7 % (42.0-75.0); Hematocrit 22.2 % (42.0-52.0); Hemoglobin 7.4 g/dL (14.0-18.0); Mean Corpuscular HGB CONC 33.3 g/dL (32.0-36.0); Mean Corpuscular Hemoglobin 31.2 pg (27.0-31.0); Mean Corpuscular Volume 93.7 fL (78.0-98.0); Mean Platelet Volume 10.7 fL (7.4-10.4); Platelet Count 179 10x3/uL (130-400); RBC Distribution Width 15.4 % (11.5-14.5); Red Blood Cell (RBC) Count 2.37 mill/uL (4.70-6.10)
[2023-12-10 14:08] LABS: ALT (SGPT) 12 U/L (8-55); AST (SGOT) 16 U/L (5-34); Albumin 2.9 g/dL (3.4-4.8); Alkaline Phosphatase 48 U/L (40-110); Anion Gap 25 mmol/L (10-20); BUN (Urea Nitrogen) 36 mg/dL (8.4-25.7); Bilirubin, Total 0.3 mg/dL (0.2-1.2); Calc. Creatinine Clearance 0 mL/min (70-130); Calcium 8.7 mg/dL (7.8-10.44); Carbon Dioxide 23 mmol/L (23-31); Chloride 101 mmol/L (98-107); Estimated GFR 5; Globulin 3.7 g/dL (2.4-3.5); Glucose 111 mg/dL (83-110); Magnesium 1.9 mg/dL (1.6-2.6); Potassium 4.5 mmol/L (3.5-5.1); Protein, Total 6.6 g/dL (5.8-8.1); Sodium 144 mmol/L (136-145)
[2023-12-10 14:13] LABS: Troponin I 0.024 ng/mL (< 0.028)
[2023-12-10] MEDS ORDERED: Ondansetron ODT 4 MG TAB PO PRN (19:06)
[2023-12-10] MEDS ORDERED: Ondansetron PF 4 MG/2 ML Vial IVP PRN (19:06)
[2023-12-10 20:57] VITALS: BMI 2950.1
[2023-12-10] MEDS: hydrALAZINE 25 MG TAB PO SCH (22:56)
[2023-12-10] MEDS: Amlodipine 5 MG TAB PO SCH (22:57)
[2023-12-11] MEDS: Latanoprost 0.005% Ophth Soln 2.5 ml Bottle EA EYE SCH (00:21)
[2023-12-11] MEDS: Brimonidine Tartrate 0.2% Ophth Soln 5 ml Bottle EA EYE SCH (00:21)
[2023-12-11 05:06] LABS: #Basophils Less than 0.03 10x3/uL (0.0-0.2); %Basophils 0.2 % (0.0-1.0); %Eosinophils 2.3 % (0.0-10.0); %Lymphocytes 26.1 % (21.0-51.0); %Monocytes 14.2 % (0.0-10.0); %Neutrophils 56.3 % (42.0-75.0); Hemoglobin 8.6 g/dL (14.0-18.0); Mean Corpuscular HGB CONC 33.1 g/dL (32.0-36.0); Mean Corpuscular Volume 93.9 fL (78.0-98.0); Mean Platelet Volume 10.6 fL (7.4-10.4); Platelet Count 191 10x3/uL (130-400); Red Blood Cell (RBC) Count 2.77 mill/uL (4.70-6.10)
[2023-12-11 05:57] LABS: Anion Gap 21 mmol/L (10-20); BUN (Urea Nitrogen) 41 mg/dL (8.4-25.7); Calc. Creatinine Clearance 5 mL/min (70-130); Calcium 8.5 mg/dL (7.8-10.44); Carbon Dioxide 23 mmol/L (23-31); Chloride 104 mmol/L (98-107); Estimated GFR 4; Glucose 79 mg/dL (83-110); Potassium 4.2 mmol/L (3.5-5.1); Sodium 144 mmol/L (136-145)
[2023-12-11] MEDS: Atorvastatin Calcium 40 MG TAB PO SCH (08:23)
[2023-12-11] MEDS: Losartan 25 MG TAB PO SCH (08:24)
[2023-12-11] MEDS: Acetaminophen 325 MG TAB PO PRN (22:06)
[2023-12-12 07:45] LABS: ALT (SGPT) 8 U/L (8-55); AST (SGOT) 11 U/L (5-34); Albumin 2.6 g/dL (3.4-4.8); Alkaline Phosphatase 46 U/L (40-110); Anion Gap 19 mmol/L (10-20); BUN (Urea Nitrogen) 60 mg/dL (8.4-25.7); Bilirubin, Total 0.4 mg/dL (0.2-1.2); Calc. Creatinine Clearance 4 mL/min (70-130); Calcium 8.2 mg/dL (7.8-10.44); Carbon Dioxide 22 mmol/L (23-31); Chloride 105 mmol/L (98-107); Estimated GFR 3; Globulin 3.5 g/dL (2.4-3.5); Glucose 82 mg/dL (83-110); Potassium 5.2 mmol/L (3.5-5.1); Protein, Total 6.1 g/dL (5.8-8.1); Sodium 141 mmol/L (136-145)
[2023-12-12 07:49] LABS: #Basophils Less than 0.03 10x3/uL (0.0-0.2); %Basophils 0.3 % (0.0-1.0); Hemoglobin 8.3 g/dL (14.0-18.0)
[2023-12-12 08:43] LABS: %Eosinophils 1.9 % (0.0-10.0); %Lymphocytes 30.2 % (21.0-51.0); %Monocytes 12.4 % (0.0-10.0); %Neutrophils 54.5 % (42.0-75.0); Hematocrit 24.9 % (42.0-52.0); Mean Corpuscular HGB CONC 33.3 g/dL (32.0-36.0); Mean Corpuscular Hemoglobin 31.4 pg (27.0-31.0); Mean Corpuscular Volume 94.3 fL (78.0-98.0); Mean Platelet Volume 10.5 fL (7.4-10.4); Platelet Count 200 10x3/uL (130-400); RBC Distribution Width 16.2 % (11.5-14.5); Red Blood Cell (RBC) Count 2.64 mill/uL (4.70-6.10)
[2023-12-12] MEDS ORDERED: Epoetin (ESRD) 20,000 UNITS/ML MDV SC SCH (08:45)
[2023-12-12 10:43] VITALS: BMI 21.2
[2023-12-12] MEDS: Senokot S 8.6-50 MG TAB PO PRN (10:49)
[2023-12-12] MEDS: EPOETIN ALFA-EPBX (ESRD) 10,000 UNITS/ML VIAL SC SCH (13:34)
[2023-12-12] MEDS: Gabapentin 100 MG CAP PO SCH (16:44)
[2023-12-12] MEDS: Amlodipine 10 MG TAB PO SCH (19:41)
[2023-12-13 05:33] LABS: #Basophils Less than 0.03 10x3/uL (0.0-0.2); %Basophils 0.2 % (0.0-1.0); %Eosinophils 1.8 % (0.0-10.0); %Lymphocytes 24.8 % (21.0-51.0); %Monocytes 10.9 % (0.0-10.0); %Neutrophils 61.7 % (42.0-75.0); Hematocrit 25.9 % (42.0-52.0); Hemoglobin 8.5 g/dL (14.0-18.0); Mean Corpuscular HGB CONC 32.8 g/dL (32.0-36.0); Mean Corpuscular Hemoglobin 30.1 pg (27.0-31.0); Mean Corpuscular Volume 91.8 fL (78.0-98.0); Mean Platelet Volume 10.5 fL (7.4-10.4); Platelet Count 220 10x3/uL (130-400); RBC Distribution Width 15.6 % (11.5-14.5); Red Blood Cell (RBC) Count 2.82 mill/uL (4.70-6.10)
[2023-12-13 06:17] LABS: ALT (SGPT) Less than 5 U/L (8-55); AST (SGOT) 10 U/L (5-34); Albumin 2.8 g/dL (3.4-4.8); Alkaline Phosphatase 46 U/L (40-110); Anion Gap 18 mmol/L (10-20); BUN (Urea Nitrogen) 81 mg/dL (8.4-25.7); Bilirubin, Total 0.4 mg/dL (0.2-1.2); Calc. Creatinine Clearance 3 mL/min (70-130); Calcium 8.6 mg/dL (7.8-10.44); Carbon Dioxide 21 mmol/L (23-31); Chloride 104 mmol/L (98-107); Estimated GFR 3; Globulin 3.5 g/dL (2.4-3.5); Glucose 81 mg/dL (83-110); Potassium 5.4 mmol/L (3.5-5.1); Protein, Total 6.3 g/dL (5.8-8.1); Sodium 138 mmol/L (136-145)
[2023-12-13] MEDS ORDERED: Heparin 10,000 UNITS/ 10 ML VIAL ONE (09:55)
[2023-12-13] MEDS: Pantoprazole DR 40 MG TAB PO SCH (14:56)
[2023-12-13] MEDS: Gabapentin 300 MG CAP PO SCH (14:56)
[2023-12-13 16:49] VITALS: BP 101/60; TEMP 98
[2023-12-13] MEDS ORDERED: Atorvastatin Calcium 40 MG TAB PO SCH (21:00)
== END 2023-12-13 18:05 | disposition home or self-care (01) | DRG 91 ==
LOC: ERS 13:07 → MSONC 18:20 → OBSVTOIN 12-13 08:48
PROVIDERS: ADMIT Internal Medicine; ATTEND Hospitalist
DX: R20.0 Anesthesia of skin (principal); N18.6 End stage renal disease; I12.0 Hypertensive chronic kidney disease with stage 5 chronic kidney disease or end stage renal disease; M48.061 Spinal stenosis, lumbar region without neurogenic claudication; K21.9 Gastro-esophageal reflux disease without esophagitis; E78.5 Hyperlipidemia, unspecified; M10.9 Gout, unspecified; I25.10 Atherosclerotic heart disease of native coronary artery without angina pectoris; I48.0 Paroxysmal atrial fibrillation; D63.1 Anemia in chronic kidney disease; M47.816 Spondylosis without myelopathy or radiculopathy, lumbar region; E87.5 Hyperkalemia; Z99.2 Dependence on renal dialysis
CPT/HCPCS: 36415; 36430; 70450; 70551; 71045; 72125; 72141; 72146; 80048; 80053; 83605; 83735; 84484; 85025; 86850; 86900; 86901; 86922; 93005; 96372; G0378; J1644; P9016; Q5105

== ENCOUNTER 2023-12-16 15:47 | Emergency (ER) | payer MEDICARE ==
[2023-12-16 16:35] LABS: #Basophils Less than 0.03 10x3/uL (0.0-0.2); %Basophils 0.4 % (0.0-1.0); %Eosinophils 2.6 % (0.0-10.0); %Lymphocytes 28.3 % (21.0-51.0); %Monocytes 12.6 % (0.0-10.0); %Neutrophils 55.7 % (42.0-75.0); Hematocrit 25.2 % (42.0-52.0); Mean Corpuscular HGB CONC 31.7 g/dL (32.0-36.0); Mean Corpuscular Volume 97.7 fL (78.0-98.0); Mean Platelet Volume 10.5 fL (7.4-10.4); Platelet Count 219 10x3/uL (130-400); RBC Distribution Width 15.2 % (11.5-14.5); Red Blood Cell (RBC) Count 2.58 mill/uL (4.70-6.10)
[2023-12-16 16:50] LABS: ALT (SGPT) 17 U/L (8-55); AST (SGOT) 18 U/L (5-34); Albumin 3.1 g/dL (3.4-4.8); Alkaline Phosphatase 56 U/L (40-110); Anion Gap 15 mmol/L (10-20); BUN (Urea Nitrogen) 59 mg/dL (8.4-25.7); Bilirubin, Total 0.3 mg/dL (0.2-1.2); Calc. Creatinine Clearance 0 mL/min (70-130); Calcium 8.9 mg/dL (7.8-10.44); Carbon Dioxide 27 mmol/L (23-31); Chloride 99 mmol/L (98-107); Estimated GFR 5; Globulin 3.8 g/dL (2.4-3.5); Glucose 97 mg/dL (83-110); Protein, Total 6.9 g/dL (5.8-8.1); Sodium 136 mmol/L (136-145)
[2023-12-16 16:55] LABS: Troponin I 0.031 ng/mL (< 0.028)
[2023-12-16 22:50] LABS: Troponin I 0.035 ng/mL (< 0.028)
== END 2023-12-16 23:06 | disposition home or self-care (01) ==
LOC: ERS 15:47
DX: R20.2 Paresthesia of skin (principal); R53.1 Weakness; N18.6 End stage renal disease; I12.0 Hypertensive chronic kidney disease with stage 5 chronic kidney disease or end stage renal disease; E78.5 Hyperlipidemia, unspecified; Z99.2 Dependence on renal dialysis; Z79.899 Other long term (current) drug therapy; Z87.891 Personal history of nicotine dependence
CPT/HCPCS: 36415; 71045; 80053; 83605; 84484; 85025; 93005

== ENCOUNTER 2023-12-21 17:56 | Inpatient (IN) | payer MEDICARE ==
[2023-12-22 04:20] VITALS: BMI 23.3
[2023-12-23 10:20] VITALS: BMI 23.3
[2023-12-25 07:57] VITALS: BP 111/56; TEMP 98.9
== END 2023-12-25 17:59 | disposition home or self-care (01) | DRG 640 ==
LOC: ERS 17:56 → ERHOLD 22:00 → 2NO 12-22 14:35
PROVIDERS: ADMIT Student in an Organized Health Care Education/Training Program; ATTEND Internal Medicine
PROC: 5A1D70Z Performance of Urinary Filtration, Intermittent, Less than 6 Hours Per Day (ICD-10-PCS; principal; 2023-12-21)
DX: E87.5 Hyperkalemia (principal); N18.6 End stage renal disease; I50.42 Chronic combined systolic (congestive) and diastolic (congestive) heart failure; I13.2 Hypertensive heart and chronic kidney disease with heart failure and with stage 5 chronic kidney disease, or end stage renal disease; H40.9 Unspecified glaucoma; I25.10 Atherosclerotic heart disease of native coronary artery without angina pectoris; D63.1 Anemia in chronic kidney disease; K21.9 Gastro-esophageal reflux disease without esophagitis; E78.5 Hyperlipidemia, unspecified; I44.1 Atrioventricular block, second degree; E83.39 Other disorders of phosphorus metabolism; R00.1 Bradycardia, unspecified; I48.0 Paroxysmal atrial fibrillation; I73.9 Peripheral vascular disease, unspecified; I70.1 Atherosclerosis of renal artery; I49.1 Atrial premature depolarization; Z99.2 Dependence on renal dialysis; Z79.899 Other long term (current) drug therapy; Z90.79 Acquired absence of other genital organ(s); Z91.158 Patient's noncompliance with renal dialysis for other reason
CPT/HCPCS: 36415; 36416; 70450; 72125; 80048; 80053; 83735; 84100; 85025; 86850; 86870; 86900; 86901; 86922; 90935; 93005; G0257; J0613; J1644; J1815; J7611; J7999; Q5105

== ENCOUNTER 2024-05-27 20:09 | Emergency (ER) | payer MEDICARE ==
[2024-05-27 21:04] LABS: #Basophils Less than 0.03 10x3/uL (0.0-0.2); %Basophils 0.4 % (0.0-1.0); %Eosinophils 2.8 % (0.0-10.0); %Lymphocytes 18.6 % (21.0-51.0); %Monocytes 10.3 % (0.0-10.0); %Neutrophils 67.2 % (42.0-75.0); Hematocrit 27.6 % (42.0-52.0); Hemoglobin 8.7 g/dL (14.0-18.0); Mean Corpuscular HGB CONC 31.5 g/dL (32.0-36.0); Mean Platelet Volume 9.7 fL (7.4-10.4); Platelet Count 181 10x3/uL (130-400); RBC Distribution Width 20.4 % (11.5-14.5)
[2024-05-27 21:21] LABS: ALT (SGPT) Less than 5 U/L (8-55); AST (SGOT) 16 U/L (5-34); Albumin 3.3 g/dL (3.4-4.8); Alkaline Phosphatase 51 U/L (40-110); Anion Gap 24 mmol/L (10-20); BUN (Urea Nitrogen) 99 mg/dL (8.4-25.7); Bilirubin, Total 0.4 mg/dL (0.2-1.2); Calc. Creatinine Clearance 0 mL/min (70-130); Calcium 8.6 mg/dL (7.8-10.44); Carbon Dioxide 26 mmol/L (23-31); Chloride 99 mmol/L (98-107); Estimated GFR 4; Globulin 3.3 g/dL (2.4-3.5); Glucose 117 mg/dL (83-110); Potassium 5.1 mmol/L (3.5-5.1); Protein, Total 6.6 g/dL (5.8-8.1); Sodium 144 mmol/L (136-145)
== END 2024-05-27 21:10 | disposition left against medical advice (07) ==
LOC: ERS 20:09
DX: Z53.21 Procedure and treatment not carried out due to patient leaving prior to being seen by health care provider (principal)
CPT/HCPCS: 36415; 80053; 85025

== ENCOUNTER 2024-05-29 07:17 | Observation (INO) | payer MEDICARE ==
[2024-05-29] MEDS ORDERED: Morphine 2 MG/ML VIAL ONE (07:41)
[2024-05-29 08:01] LABS: #Basophils Less than 0.03 10x3/uL (0.0-0.2); %Basophils 0.2 % (0.0-1.0); %Eosinophils 1.4 % (0.0-10.0); %Lymphocytes 16.6 % (21.0-51.0); %Monocytes 6.4 % (0.0-10.0); %Neutrophils 74.7 % (42.0-75.0); Hematocrit 18.7 % (42.0-52.0); Mean Corpuscular HGB CONC 32.1 g/dL (32.0-36.0); Mean Corpuscular Hemoglobin 29.1 pg (27.0-31.0); Mean Corpuscular Volume 90.8 fL (78.0-98.0); Platelet Count 154 10x3/uL (130-400); RBC Distribution Width 20.5 % (11.5-14.5); Red Blood Cell (RBC) Count 2.06 mill/uL (4.70-6.10)
[2024-05-29 08:23] LABS: ALT (SGPT) Less than 5 U/L (8-55); AST (SGOT) 17 U/L (5-34); Alkaline Phosphatase 43 U/L (40-110); Anion Gap 17 mmol/L (10-20); BUN (Urea Nitrogen) 106 mg/dL (8.4-25.7); Bilirubin, Total 0.3 mg/dL (0.2-1.2); Calc. Creatinine Clearance 0 mL/min (70-130); Calcium 8.1 mg/dL (7.8-10.44); Carbon Dioxide 29 mmol/L (23-31); Chloride 98 mmol/L (98-107); Estimated GFR 5; Globulin 2.7 g/dL (2.4-3.5); Glucose 103 mg/dL (83-110); Potassium 4.3 mmol/L (3.5-5.1); Protein, Total 5.7 g/dL (5.8-8.1); Sodium 140 mmol/L (136-145)
[2024-05-29 09:25] LABS: INR-International Normal Ratio 1.1; Prothrombin Time 14.7 sec (12.0-14.7)
[2024-05-29] MEDS ORDERED: Pantoprazole 40 MG VIAL ONE (12:15)
[2024-05-29] MEDS ORDERED: Acetaminophen 325 MG TAB PO PRN (12:36)
[2024-05-29] MEDS ORDERED: Ondansetron ODT 4 MG TAB PO PRN (12:36)
[2024-05-29] MEDS ORDERED: Pantoprazole 80 MG, Admixture Fee 1 EACH in Sodium Chloride 0.9% 100 ML IVPB SCH (13:00)
[2024-05-29 14:29] VITALS: BMI 21.9
[2024-05-29 14:36] LABS: Hematocrit 23.4 % (42.0-52.0); Hemoglobin 7.6 g/dL (14.0-18.0)
[2024-05-29] MEDS: Sodium Chloride 0.9% 1,000 ML IV SCH (15:04)
[2024-05-29 20:07] LABS: Hematocrit 21.7 % (42.0-52.0)
[2024-05-29] MEDS ORDERED: Pantoprazole 40 MG VIAL IVP SCH (21:00)
[2024-05-30 02:21] LABS: Hematocrit 22.1 % (42.0-52.0); Hemoglobin 7.2 g/dL (14.0-18.0)
[2024-05-30 04:51] LABS: #Basophils Less than 0.03 10x3/uL (0.0-0.2); %Basophils 0.2 % (0.0-1.0); %Eosinophils 2.5 % (0.0-10.0); %Lymphocytes 39.3 % (21.0-51.0); %Neutrophils 46.1 % (42.0-75.0); Hematocrit 21.1 % (42.0-52.0); Hemoglobin 6.8 g/dL (14.0-18.0); Mean Corpuscular HGB CONC 32.2 g/dL (32.0-36.0); Mean Corpuscular Hemoglobin 29.4 pg (27.0-31.0); Mean Corpuscular Volume 91.3 fL (78.0-98.0); Mean Platelet Volume 10.2 fL (7.4-10.4); Platelet Count 129 10x3/uL (130-400); RBC Distribution Width 19.3 % (11.5-14.5); Red Blood Cell (RBC) Count 2.31 mill/uL (4.70-6.10)
[2024-05-30 05:18] LABS: Anion Gap 21 mmol/L (10-20); BUN (Urea Nitrogen) 117 mg/dL (8.4-25.7); Calc. Creatinine Clearance 4 mL/min (70-130); Calcium 7.6 mg/dL (7.8-10.44); Carbon Dioxide 20 mmol/L (23-31); Chloride 105 mmol/L (98-107); Estimated GFR 4; Glucose 81 mg/dL (83-110); Potassium 4.9 mmol/L (3.5-5.1); Sodium 141 mmol/L (136-145)
[2024-05-30] MEDS: Pantoprazole 40 MG VIAL IVP SCH (09:01)
[2024-05-30] MEDS: EPOETIN ALFA-EPBX (ESRD) 10,000 UNITS/ML VIAL SC SCH (09:05)
[2024-05-30 10:19] LABS: Hematocrit 24.9 % (42.0-52.0); Hemoglobin 7.6 g/dL (14.0-18.0)
[2024-05-30] MEDS ORDERED: PROPOFOL 200 MG/20 ML VIAL ONE (13:45)
[2024-05-30 19:38] LABS: Hematocrit 29.6 % (42.0-52.0); Hemoglobin 10.1 g/dL (14.0-18.0)
[2024-05-30] MEDS: hydrALAZINE 20 MG/ML VIAL SLOW IVP SCH (20:40)
[2024-05-31 04:42] LABS: #Basophils Less than 0.03 10x3/uL (0.0-0.2); %Basophils 0.2 % (0.0-1.0); %Eosinophils 2.2 % (0.0-10.0); %Lymphocytes 23.4 % (21.0-51.0); %Monocytes 13.2 % (0.0-10.0); %Neutrophils 59.9 % (42.0-75.0); Hematocrit 25.5 % (42.0-52.0); Hemoglobin 8.5 g/dL (14.0-18.0); Mean Corpuscular HGB CONC 33.3 g/dL (32.0-36.0); Mean Corpuscular Hemoglobin 29.4 pg (27.0-31.0); Mean Corpuscular Volume 88.2 fL (78.0-98.0); Mean Platelet Volume 11.3 fL (7.4-10.4); Platelet Count 132 10x3/uL (130-400); RBC Distribution Width 17.3 % (11.5-14.5); Red Blood Cell (RBC) Count 2.89 mill/uL (4.70-6.10)
[2024-05-31 05:47] LABS: Anion Gap 17 mmol/L (10-20); BUN (Urea Nitrogen) 55 mg/dL (8.4-25.7); Calc. Creatinine Clearance 7 mL/min (70-130); Calcium 7.7 mg/dL (7.8-10.44); Carbon Dioxide 25 mmol/L (23-31); Chloride 101 mmol/L (98-107); Estimated GFR 7; Glucose 73 mg/dL (83-110); Sodium 139 mmol/L (136-145)
[2024-05-31 11:19] VITALS: TEMP 97.9
[2024-05-31 16:26] VITALS: BP 176/83
== END 2024-05-31 17:00 | disposition home or self-care (01) ==
LOC: ERS 07:17 → 2NO 14:14
PROVIDERS: ADMIT Family Medicine; ATTEND Internal Medicine
PROC: 0W3P8ZZ Control Bleeding in Gastrointestinal Tract, Via Natural or Artificial Opening Endoscopic (ICD-10-PCS; principal; 2024-05-30)
DX: K92.2 Gastrointestinal hemorrhage, unspecified (principal); I25.10 Atherosclerotic heart disease of native coronary artery without angina pectoris; I48.0 Paroxysmal atrial fibrillation; I12.0 Hypertensive chronic kidney disease with stage 5 chronic kidney disease or end stage renal disease; N18.6 End stage renal disease; E78.5 Hyperlipidemia, unspecified; D63.1 Anemia in chronic kidney disease; H40.9 Unspecified glaucoma; Z99.2 Dependence on renal dialysis; Z90.79 Acquired absence of other genital organ(s); Z87.891 Personal history of nicotine dependence; Z79.01 Long term (current) use of anticoagulants; Z79.82 Long term (current) use of aspirin; Z79.899 Other long term (current) drug therapy; Z53.21 Procedure and treatment not carried out due to patient leaving prior to being seen by health care provider
CPT/HCPCS: 36430 ×2; 43255; 70450; 80048 ×2; 80053 ×2; 82962; 85014 ×2; 85018 ×2; 85025 ×4; 85610; 86850; 86900; 86901; 86902; 86920; 86922; 96374; 96375; 96376; 99285; J0360; J2272; J2470 ×3; J7030 ×2; P9016 ×2; Q5105; 36415; 36416; 82274

== ENCOUNTER 2024-08-07 03:21 | Emergency (ER) | payer MEDICARE, OTHER ==
[2024-08-07] MEDS ORDERED: EPINEPHrine 1 MG/ML VIAL ONE (03:42)
[2024-08-07] MEDS ORDERED: Lidocaine 1% w/Epinephrine 1:100K 20 ML VIAL ONE (03:58)
[2024-08-07] MEDS ORDERED: Oxymetazoline HCl 0.05% (30 ML BOT) ONE (04:01)
[2024-08-07] MEDS ORDERED: Tranexamic Acid 1,000 MG/10 ML VIAL ONE (04:06)
[2024-08-07] MEDS ORDERED: Sodium Chloride 0.9% 100 ML ONE (04:07)
[2024-08-07 04:46] LABS: #Basophils Less than 0.03 10x3/uL (0.0-0.2); %Basophils 0.3 % (0.0-1.0); %Eosinophils 1.8 % (0.0-10.0); %Lymphocytes 32.6 % (21.0-51.0); %Monocytes 12.1 % (0.0-10.0); %Neutrophils 51.9 % (42.0-75.0); Hematocrit 36.1 % (42.0-52.0); Hemoglobin 11.9 g/dL (14.0-18.0); Mean Corpuscular Hemoglobin 28.5 pg (27.0-31.0); Mean Corpuscular Volume 86.4 fL (78.0-98.0); Mean Platelet Volume 9.9 fL (7.4-10.4); Platelet Count 148 10x3/uL (130-400); RBC Distribution Width 20.2 % (11.5-14.5); Red Blood Cell (RBC) Count 4.18 mill/uL (4.70-6.10)
[2024-08-07 04:59] LABS: ALT (SGPT) 12 U/L (Less than 45); AST (SGOT) 21 U/L (11-34); Albumin 3.7 g/dL (3.1-4.5); Alkaline Phosphatase 80 U/L (40-110); Anion Gap 23 mmol/L (10-20); BUN (Urea Nitrogen) 92 mg/dL (8.4-25.7); Bilirubin, Total 0.4 mg/dL (0.3-1.2); Calc. Creatinine Clearance 0 mL/min (70-130); Carbon Dioxide 23 mmol/L (23-31); Chloride 104 mmol/L (98-107); Estimated GFR 3; Globulin 3.8 g/dL (2.4-3.5); Glucose 86 mg/dL (83-110); Potassium 7.4 mmol/L (3.5-5.1); Protein, Total 7.5 g/dL (5.8-8.1); Sodium 143 mmol/L (136-145)
[2024-08-07] MEDS ORDERED: Sodium Bicarb 50 MEQ/50 ML Abboject 8.4% SYRINGE ONE (05:07)
[2024-08-07] MEDS ORDERED: dilTIAZem 25 MG/5 ML VIAL ONE (05:08)
[2024-08-07] MEDS ORDERED: CALCIUM GLUC 1 GM/NS 50 ML IV Bag ONE (05:08)
[2024-08-07] MEDS ORDERED: LOKELMA 10 GM PACKET PO SCH (05:15)
[2024-08-07] MEDS ORDERED: Dextrose 50% Abboject 50 ML SYRINGE ONE (05:23)
[2024-08-07] MEDS ORDERED: Insulin Regular, Human 100 UNIT/ML 10 ML VIAL ONE (05:26)
[2024-08-07] MEDS ORDERED: hydrALAZINE 20 MG/ML VIAL ONE (05:27)
== END 2024-08-07 06:04 | disposition home or self-care (01) ==
LOC: ERS 03:21
DX: R04.0 Epistaxis (principal); I12.0 Hypertensive chronic kidney disease with stage 5 chronic kidney disease or end stage renal disease; N18.6 End stage renal disease; E87.5 Hyperkalemia; E78.5 Hyperlipidemia, unspecified; Z99.2 Dependence on renal dialysis
CPT/HCPCS: 80053; 85025; 93005; J0171; J0360; J0613; J1815; J7999

== ENCOUNTER 2024-08-07 12:56 | Emergency (ER) | payer OTHER ==
[2024-08-07] MEDS ORDERED: HYDROcodone/Acetaminophen 5/325 mg Tablet ONE (13:30)
== END 2024-08-07 15:29 | disposition home or self-care (01) ==
LOC: ERS 12:56
DX: Z48.00 Encounter for change or removal of nonsurgical wound dressing (principal); E78.5 Hyperlipidemia, unspecified; R04.0 Epistaxis; I12.0 Hypertensive chronic kidney disease with stage 5 chronic kidney disease or end stage renal disease; N18.6 End stage renal disease; E87.5 Hyperkalemia; Z99.2 Dependence on renal dialysis
CPT/HCPCS: 80053; 85025; 93005; 99282; J0360; J0613; J1815; J7999; 30901; 96365; 96367; 96375; J0171

== ENCOUNTER 2025-05-25 08:05 | Emergency (ER) | payer MEDICARE ==
[2025-05-25 09:43] LABS: Hematocrit 30.0 % (42.0-52.0); Hemoglobin 9.7 g/dL (14.0-18.0); Mean Corpuscular Hemoglobin 28.0 pg (27.0-31.0); Mean Corpuscular Volume 86.5 fL (78.0-98.0); Platelet Count 104 10x3/uL (130-400); Red Blood Cell (RBC) Count 3.47 mill/uL (4.70-6.10); White Blood Cell (WBC) Count 3.62 10x3/uL (4.8-10.8)
[2025-05-25 09:51] LABS: ALT (SGPT) 8 U/L (Less than 45); AST (SGOT) 16 U/L (11-34); Albumin 3.4 g/dL (3.1-4.5); Alkaline Phosphatase 70 U/L (40-110); Anion Gap 21 mmol/L (10-20); BUN (Urea Nitrogen) 50 mg/dL (8.4-25.7); Bilirubin, Total 0.4 mg/dL (0.3-1.2); Calc. Creatinine Clearance 0 mL/min (70-130); Calcium 9.2 mg/dL (7.8-10.44); Carbon Dioxide 27 mmol/L (23-31); Chloride 100 mmol/L (98-107); Globulin 3.9 g/dL (2.4-3.5); Glucose 78 mg/dL (83-110); Potassium 4.9 mmol/L (3.5-5.1); Sodium 143 mmol/L (136-145)
[2025-05-25 10:09] LABS: Anisocytosis MARKED = >30 cells HPF (0-5); Macrocytosis MODERATE=16-30 cells HPF (0-5); Ovalocytes SLIGHT = 2-5 cells HPF (0-1); Platelet Adequacy Comment Platelets Decreased; Polychromasia SLIGHT = 2-3 cells HPF (0-2)
[2025-05-25 10:13] LABS: #Basophils Less than 0.03 10x3/uL (0.0-0.2); #Eosinophils 0.07 10x3/uL (0.0-0.7); #Monocytes 0.47 10x3/uL (0.11-0.59); #Neutrophils 1.81 10x3/uL (1.40-6.50); %Basophils 0.6 % (0.0-1.0); %Eosinophils 1.9 % (0.0-10.0); %Lymphocytes 33.7 % (21.0-51.0); %Monocytes 13.0 % (0.0-10.0); %Neutrophils 50.0 % (42.0-75.0)
== END 2025-05-25 13:17 | disposition home or self-care (01) ==
LOC: ERS 08:05
DX: R00.1 Bradycardia, unspecified (principal); E11.22 Type 2 diabetes mellitus with diabetic chronic kidney disease; I12.0 Hypertensive chronic kidney disease with stage 5 chronic kidney disease or end stage renal disease; N18.6 End stage renal disease; Z99.2 Dependence on renal dialysis; Z87.891 Personal history of nicotine dependence
CPT/HCPCS: 71045; 80053; 83880; 84484; 85025; 93005; J2272; 36415; 96374